=== PATIENT | female | born 1945 | race Caucasian/White ===

== ENCOUNTER 2021-11-14 14:10 | Inpatient (IN) | payer OTHER ==
--- OUTSIDE RECORDS SUMMARY | 2021-11-14 14:13 | XMS REPORT | Continuity of Care Document ---
:1945 Author Organization [facility] t Address [address] [place] [address] Care Team Providers Name Role Phone Joe Egan Attending Clinician Unavailable Sim Attending Clinician Unavailable NAZARIO Attending Clinician Unavailable Jonas Baca Admitting Clinician Unavailable NAZARIO Admitting Clinician Unavailable Payers Payer Name Policy Type Policy Number Effective Date Expiration Date S ource Problems This patient has no known problems. Allergies, Adverse Reactions, Alerts Allergy Allergy Status Severity Reaction(s) Onset Inactive Treating Comm ents Source Name Type Date Date Clinician meperidi DA Active SV 2019-06 [facility] ne HCl 0-02 [place] [facility] iodine DA Active SV 2019-06 [facility] 0-02 [place] [facility] morphine DA Active SV 2019-06 [facility] 0-02 [place] [facility] meperidi DA Active SV VOMIT 2019-06 [facility] ne HCl 0-02 [place] [facility] iodine DA Active SV "CAUSED 2019- [facility] RENAL 0-02 [place] PROBLEMS" 00:00: d [facility] morphine DA Active SV CHEST SPASMS 2019- HC A 0-02 [place] 00:[facility]: d [facility] dipyrida DA Active SV 2018-0 [facility] mole 8- [place] [facility] aspirin DA Active SV 2017- [facility] 8- [place] [facility]: d [facility] dipyrida DA Active SV dry heaving 2017- [facility] mole 01-23 00:00: d [facility] aspirin DA Active SV dry heaving 2017- [facility] 01-23 00:[facility]: d [facility] iodine DA Active LA 2017- [facility] 01-22 00:[facility]: d [facility] iodine DA Active LA "CAUSED [facility] RENAL 01-22 [facility] PROBLEMS" 00:00: d [facility] meperidi DA Active LA [facility] ne HCl 10-21 00:00: d [facility] morphine DA Active LA [facility] 10-21 00:00: d [facility] meperidi DA Active LA VOMIT [facility] ne HCl 10-21 00:00: d [facility] morphine DA Active LA CHEST SPASMS HC A 10-21 00:00: d 00 [facility] Medications This patient has no known medications. Procedures This patient has no known procedures. Encounters Start End Encounter Admission Attending Care Care Encounter Source Date/Time Date/Time Type Type Clinicians Facility Department ID 2021-11-07 Outpatient Egan, STLMLC STLC [id number] Common 12:25:01 [facility] 2021-09-12 Outpatient Egan, STLMLC STLC [id number] Common 13:09:02 [facility] 2021-09-08 Outpatient Egan, STLMLC STLC [id number] Common 14:45:03 [facility] 2021-07-20 Outpatient Egan, STLMLC STLC [id number] Common 14:04:07 [facility] 2021-07-20 Outpatient Egan, STLMLC STLMLC [id number] Common 13:59:25 [facility] 2021-07-20 Outpatient Egan, STLMLC STLC [id number] Common 13:49:55 [facility] 2021-07-20 Outpatient Egan, STLMLC STLC [id number] Common 13:49:24 [facility] [address] [facility] 2020-04-07 Inpatient HCAKW DAVE [id number] [facility] 16:16:00 [id number] [facility] 2020-03-29 Inpatient NIRAV Montemayor HCAKW JENNIFER [id number] [facility] 10:30:00 Edward [id number] [facility] 2021-11-07 2021-11-07 ambulatory STLMLC STLMLC [id number] Common 00:00:00 00:00:00 [facility] 2021-11-07 2021-11-07 ambulatory STLMLC STLMLC [id number] Common 00:00:00 00:00:00 [facility] 2021-10-11 2021-10-11 ambulatory STLMLC STLMLC [id number] Common 00:00:00 00:00:00 [facility] 2021-09-26 2021-09-26 ambulatory STLMLC STLMLC [id number] Common 00:00:00 00:00:00 [facility] 2021-09-26 2021-09-26 ambulatory STLMLC STLMLC [id number] Common 00:00:00 00:00:00 [facility] 2021-09-22 2021-09-22 ambulatory STLMLC STLMLC [id number] Common 00:00:00 00:00:00 [facility] 2021-09-12 2021-09-12 ambulatory STLMLC STLMLC [id number] Common 00:00:00 00:00:00 [facility] 2021-09-12 2021-09-12 ambulatory STLMLC STLMLC [id number] Common 00:00:00 00:00:00 [facility] 2021-06-08 2021-06-08 ambulatory STLMLC STLMLC [id number] Common 00:00:00 00:00:00 [facility] 2021-05-18 2021-05-18 ambulatory STLMLC STLMLC [id number] Common 00:00:00 00:00:00 [facility] 2020-03-26 2020-03-26 Outpatient LIBORIO Montemayor DAYS [id number] [facility] 10:30:00 10:30:00 Jassi [facility] 2019-07-18 2019-07-21 Inpatient [address]ARIO [facility] 460 [id number] [address] [place] 00:00:00 00:00:00 [place] [address] Results Test Description Test Time Test Comments Results Result Comments Source CARDIAC ENZYMES PROFILE 2020-04-08 05:25:00 Test Item Value Reference Range Interpretation Comme nts TROPONIN-I 0.541 0.012-0.033 HH Critical Value reported toFirst Name:[id number] Last Name:RESULTS READ BACK AND (test code ng/mL VERIFIEDby DORIS JARAMILLO, on 04/08/20, @ = TROPI) 0525.Please be advised of the updated reference ranges for the new Chemistry instrumentation . V ITROS TROPONIN I CRITERIANORMAL PATIENT W/O CIRCULATING TNI: 0.012-0.03 3 ng/mLCIRCULATING TNI PRESENT: 0.034-0.119 ng/mL(MAY BE AT RISK OF AMI)AMI DIAGNOSTIC CUTOFF: >/= 0.120 ng/mL~~~~~~~~~~ ~~~~~~~~~~~~~~~~~~~~~~~~~~~~~~~~~~~~~~~~~~~~~~~~~The use of serial sampling and testing protocol is arecommended practice.An elevated troponin level alone is often not sufficient fordiagnosis of myocardial infarction. Tro ponin results obtained by different assays may vary.Evaluation of the extent o f myocardial damage based onincrease of troponin would be valid only if s imilarmethodology is used.~~~~~~~~~~ ~~~~~~~~~~~~~~~~~~~~~~~~~~~~~~~~~~~~~~~~~~~~~~~~~ Spec Comments: Cancel third set if POC Troponin completed in ED CARDIAC ENZYMES [id number] 00:39:00 Test Item Value Reference Range Interpretation Comments TROPONIN-I 0.610 ng/mL 0.012-0.033 Critical Value reported (test code = toFirst Name:QL [id number] Last TROPI) Name:RESULTS RE AD BACK AND VERIFIEDby DORIS JARAMILLO, on 04/08/20, @ 0039. Please be advised of the updated reference ranges for the new Chemistry instrumentation . VITROS T ROPONIN I CRITERIANORM AL PATIENT W/O CIRCULATING TNI: 0.012-0.033 ng/ mLCIRCULATING TNI PRESENT: 0. 034-0.119 ng/mL(MAY BE AT RISK OF AMI)AMI DIAGNOS TIC CUTOFF: >/= 0.120 ng/mL~~~~~~~~~~ ~~~~~~~~~~~~~ ~~~~~~~~~~~~~~~ ~~~~~~~~~~~~~ ~~~~~~~~The use of serial sampling and te sting protocol is are commended practice.An chito vated troponin level alone is often not suffi cient fordiagnosis of myocardial infarction. Tro ponin results obtained by dif ferent assays may vary.Evalua tion of the extent of myoca rdial damage based onincreas e of troponin would be valid only if similarmethodol ogy is used.~~~~~~~~~~ ~~~~~~~~~~~~~ ~~~~~~~~~~~~~~~ ~~~~~~~~~~~~~ ~~~~~~~~ Spec Comments: Cancel third set if POC Troponin completed in ED- MRI BRAIN W WO [id number] 21:34:00 [facility] 1945 Sex: F FAX: Sharri Snow [facility] [phone] [place]: St: ADM Name: ALINA SZYMANSKI [facility] : 1945 Age/S: 74/F [address] Unit #: [id number] Loc: [place] [address] Phys: Preet Varma MD Acct: [id number] Dis Date: Status: ADM IN PHONE #: [phone] Exam Date: FAX #: [phone] Reason: Express aphasia/tia, +trop EXAMS: CPT CODE: [id number] MRI BRAIN W WO CONT 50094 Location: H3 MRI BRAIN: Conducted on04/07/20 COMPARISON EXAM: Head CT exam and CTA assessment of the head and neck of 04/07/20. The exam is also being correlated with MRI imaging of the brain of 10/23/12 TECHNIQUE: MRI examination of the brain with and without contrast was performed on a high field magnet . Multiplanar and multisequence technique utilized. The patient was given a total of 12 mL Dotarem for contrast . CLINICAL HISTORY: Stroke assessment,expressive aphasia, TIA FINDINGS: No positive mass-effect, midline shift, extra-axial collection, or intracranial hemorrhage seen. No acute territorial infarction is seen. There is no intra or extra-axial masses. Assessment of skull base unremarkable. There is a very tiny area of acute restriction seen within the left temporal occipital region seen on diffusion-weighted imaging on image #14 measuring just a few millimeters in size demonstrating high signal on diffusion weighted imaging and low signal on ADC tracing measuri ng just a few millimeters in size of concern for a tiny acute microvascular insults. Itprobably does exhibit some signal alteration on axial T2-weighted imaging and is more likely real than artifactual. No other areas of acute vascular insult. Minimal chronic microvascular changes in the supratentorium. No abnormal enhancement is seen Ventricles and sulci are age-appropriate given patient's age. There is a small lacunar infarct identified in the right cerebellum. This is chronic exhibiting low signal on diffusion-weighted imaging. Normal signal void in the basilar artery and carotid siphons are seen. IMPRESSION: PAGE 1 Signed Report (CONTINUED) FAX: Sharri Snow [facility] [phone] [place]: St: ADM Name: ALINA SZYMANSKI [facility] : 1945 Age/S: 74/F [address] Unit #: [id number] Loc: [place] [address] Phys: Preet Varma MD Acct: [id number] Dis Date: Status: ADM IN PHONE #: [phone] Exam Date: 04/07/20202118 FAX #: [phone] Reason: Express aphasia/tia, +trop EXAMS: CPT CODE: [id number] MRI BRAINW WO CONT 96612 <Continued> Probable very tiny acute microvascular insult seen cortically-based in the left temporal occipital region measuring just a few millimeters in size more likely real than artifactual probable subtlesignal alteration on axial T2- weighted imaging and FLAIR imaging. No acute territorial infarction or significant restriction elsewhere. Tiny old vascular insult in the right cerebellum No abnormal enhancement, intracranial hemorrhage or space-occupying process. Very small degree of chronic microvascular changes at 2133 Reported and si gned by: Darleen Rodriguez MD CC: Sharri Baca DO Technologist: Nica Butler Date/Time/By: 04/07/2020 (2133) : By: [email or web address] PAGE 2 Signed Report FAX: Sharri Snow [phone] [place]: St: ADM Name: ALINA SZYMANSKI [facility] : 1945 Age/S: 74/F [address] Unit #: [id number] Loc: [place] [address] Phys: Preet Varma MD Acct: [id number] Dis Date: Status: ADM IN PHONE #: [phone] Exam Date: 04/07/20202118 FAX #: [phone] Reason: Express aphasia/tia, +trop EXAMS: CPT CODE: [id number] MRI BRAIN W WO CONT 28793 <Continued> Orig Print D/T: S: 04/07/2020 (1147) PAGE 3 Signed ReportLIPID PROFILE (CORONARY RISK)2020-04-07 19:54:00 Test Item Value Reference Range Interpretation Comments TRIGLYCERIDES (test 104 mg/dL TRIGLYCE RIDES code = TRIG) REFERENCE RANGE:Normal: < 150 mg/dLBorderline High: 150-199 mg/dLHigh: 200- 499 mg/dLVery High: >=500 mg/dL CHOLESTEROL (test 200 mg/dL CHOLESTERO L code = CHOL) REFERENCE RANGE:DESIRABLE : < 200 mg/dLBORDER LINE: 200-239 mg/dLHI GH: >=240 mg/dL HDL CHOLESTEROL (test 79 mg/dL 40-59 H code = HDL) LIPOPROTEIN LDL (test 110.55 mg/dL 32-99 H code = LDLC) CORONARY RISK FACTOR 2.53 (test code = RISK) CHOL/HD L RISK MALE: 1/2 AVG 3.43 FEMALE: 1/2 AVG 3.27 AVG 4.97 AVG 4.44 2X AVG 9.55 2X AVG 7 .05 3X A VG 23.39 3X AVG 11.04~~~~~~~~~~ ~~~~~ ~~~~~~~~~~~~~~~ ~~~~~ ~~~~~~~~~~~~~~~ ~~~~~ ~~~~~National Cholesterol Education (NCEP ) Guidelines:~~~~ ~~~~~ ~~~~~~~~~~~~~~~ ~~~~~ ~~~~~~~~~~~~~~~ ~~~~~ ~~~~~~~~~~~ HDL Cholesterol<4 0mg/d L: HDL Choleste rol (Major risk fac tor for CHD)>60mg/d L: HDL Cholesterol (Negative risk factor for CHD)40-59mg/dL: Borderline Risk * *LDL Cholesterol<1 00mg/ dL: Desirable L DL-C [id number] 0-159 mg/dL: Borderli ne High Risk LDL-C [id number] 0-189 mg/dL: High ris k LDL-C concentra tion HDL-LDL Cholest diogo is affected by a number of facto rs suchas smoking, age and sex.~~~~~~~~~~~ ~~~~~ ~~~~~~~~~~~~~~~ ~~~~~ ~~~~~~~~~~~~~~~ ~~~~~ ~~~~ LIPID PROFILE (CORONARY RISK)2020-04-07 19:42:00 Test Item Value Reference Range Interpretation Comments TRIGLYCERIDES (test 104 mg/dL TRIGLYCE RIDES code = TRIG) REFERENCE RANGE:Normal: < 150 mg/dLBorderline High: 150-199 mg/dLHi gh: 200-499 mg/dLVe ry High: >=500 mg/ dL CHOLESTEROL (test code 200 mg/dL DONTE STEROL REFERENCE = CHOL) RANGE:DESIRABLE : < 200 mg/dLBORDERLINE : 200-239 mg/dLHI GH: >=240 mg/dL HDL CHOLESTEROL (test 79 mg/dL 40-59 H code = HDL) LIPOPROTEIN LDL (test mg/dL 32-99 code = LDLC) CORONARY RISK FACTOR 2.53 (test code = RISK) CHOL/HDL RISK MALE: 1/2 AVG 3.43 FEMALE: 1/2 AV G 3.27 AVG 4.97 AVG 4.44 2X AVG 9.55 2X AVG 7.05 3X AVG 23.39 3X AVG 11.04~~~~~~~~~~ ~~~~~~~ ~~~~~~~~~~~~~~~ ~~~~~~~ ~~~~~~~~~~~~~~~ ~~~~~~[facility] Cholest diogo Education (NCEP ) Guidelines:~~~~ ~~~~~~~ ~~~~~~~~~~~~~~~ ~~~~~~~ ~~~~~~~~~~~~~~~ ~~~~~~~ ~~~~~ HDL Cholesterol<4 0mg/dL: HDL Cholesterol (Major risk factor for CHD)>60mg/dL: H DL Cholesterol (Ne gative risk factor for CHD)40-59mg/dL: Borderline Risk L DL Cholesterol<1 00mg/dL : Desirable LDL -C [id number] 0-159mg /dL: Borderline High Risk LDL-C nlkntggjxrrow01 0-189mg /dL: High risk LDL-C concentration H DL-LDL Cholesterol is affected by a n umber of factors such as smoking, age an d sex.~~~~~~~~~~~ ~~~~~~~ ~~~~~~~~~~~~~~~ ~~~~~~~ ~~~~~~~~~~~~~~~ ~~~~~ - XR CHEST 1 [id number] 18:26:00 [facility] : 1945 Sex: F FAX: Sharri Snow [facility] [phone] [place]: St: PRE Name: ALINA SZYMANSKI [facility] : 1945 Age/S: 74/F [address] Unit #: [id number] Loc: [place] [address] Phys: Preet Varma MD Acct: [id number] Dis Date: Status: PRE ER PHONE #: [phone] Exam Date: FAX #: [phone] Reason: Code Stroke EXAMS: CPT CODE: [id number] XR CHEST 1 V 32142 EXAM: - XR CHEST 1 V INDICATION: Code Stroke Location: H62. COMPARISON: None TECHNIQUE: Frontal view of the chest. FINDINGS: Few scattered areas of minimal scarring/atelectasis involving the right lung. Otherwise the lungs appear clear. Cardiomediastinal silhouette and osseous structures appear unremarkable. No pleural effusion appreciated. IMPRESSION: No acute cardiopulmonary process seen. Electronically Signedby Ricardo Silva MD on 04/07/2020 at 1826 Reported and signed by: Ricardo Silva MD CC: Sharri Baca DO Technologist: ANDREE RUBIO Trnscrd Date/Time/By: 04/07/2020 (1825) : By: [email or web address] Signed Report FAX: Sharri Snow [phone] [place]: St: PRE Name: ALINA SZYMANSKI [facility] : 1945 Age/S: 74/F [address] Unit #: [id number] Loc: [place] [address] Phys: Preet Varma MD Acct: [id number] Dis Date: Status: PRE ER PHONE #: [phone] Exam Date: 04/07/2020 1630 FAX #: [phone] Reason: Code Stroke EXAMS: CPT CODE: [id number] XR CHEST 1 V 16973 <Continued> Orig Print D/T: S: 04/07/2020 (183) PAGE 2 Signed Report- CT ANGIO NECK 2020-04-07 18:10:00 [facility] : 1945 Sex: F FAX: Sharri Snow [facility] [phone] [place]: St: PRE Name: ALINA SZYMANSKI [facility] : 1945 Age/S: 74/F [address] Unit: [id number] Loc: [place] [address] Phys: Preet Varma MD Acct: [id number] Dis Date: Status: PRE ER PHONE #: [phone] Exam Date: 04/07/2020 1540 FAX #: [phone] Reason: aphasia? EXAMS: CPT CODE: [id number] CT ANGIO NECK [address]257 EXAM: - CT ANGIO HEAD, - CT ANGIO NECK LOCATION: H50 HISTORY: aphasia? TECHNIQUE: CTA head: Axial CTimages were obtained from the skull base to the vertex after intravenous contrast utilizing CTA protocol. Coronal and sagittal maximum intensity projection images are provided. CTA neck: Axial CT images were obtained from the aortic arch to the skull base after intravenous contrast utilizing CTA protocol. Coronal and sagittal maximum intensity projection images are provided. This exam was performed according to our departmental dose-optimization program, which includes automated exposure control, adjustment of the mA and/or kV according to patient size and/or use of iterative reconstruction technique. Contrast: 100 mL Isovue-370 GFR: 43 Cr: 1.3 COMPARISON: None available time of interpretation. FINDINGS: For the purposes of this dictation, hemodynamically significan t stenosis is characterized as greater than 50%. CTA head: The petrous, cavernous, and clinoid internal carotid arteries do not demonstrate hemodynamically significant stenoses. The anterior and middle cerebral arteries do not demonstrate hemodynamically significant stenoses. [place] of both vertebral arteries into the basilar. Basilar artery and posterior cerebral arteries are do not demonstrate hemodynamically significant stenoses. The dural venous sinuses are patent. PAGE 1 Signed Report (CONTINUED) FAX: Sahrri Snow [facility] [phone] [place]: St: PRE ------- Name: ALINA SZYMANSKI [facility] : 1945 Age/S: 74/F [address] Unit: [id number] Loc: [place] [address] Phys: Preet Varma MD Acct: [id number] Dis Date: Status: PRE ER PHONE#: [phone] Exam Date: 04/07/2020 1540 FAX #: [phone] Reason: aphasia? EXAMS: CPT CODE: [id number] CT ANGIO NECK 72591 <Continued> CTA neck: The origins of the great vessels from the aortic arch do not demonstrate hemodynamically significant stenoses. The bilateral common carotid arteries and bulbs are without hemodynamically significant stenosis. The internal carotid arteries do not demonstrate hemodynamically significant stenosis. The left vertebral artery is dominant. There is no hemodynamically significant stenosis of the vertebral arteries. Patchy central groundglass opacities are seen in the lung apices which may reflect multifocal pneumonia or pulmonary edema. Soft tissues of the neck are unremarkable. IMPRESSION: 1. No hemodynamically significant stenoses of the cervical internal carotid or vertebral arteries. 2. No hemodynamically significant stenoses of the anterior, middle, or posterior cerebral arteries. 3. No aneurysm, occlusion, or dissection. 4. Central groundglass opacities in the lung apices which may reflect multifocal pneumonia versus pulmonary edema. at 1810 Reported and signed by: STACY SHAFER MD CC: Sharri Baca DO Technologist: BALA YOUNGBLOOD, RT(R,CT); NEDA OCONNOR Trnscrd Dt/Tm: 04/07/2020 (1809) [email or web address] Orig Print D/T: S: 04/07/2020 (1814 PAGE 2 Signed Report- CT ANGIO [id number] 18:10:00 [facility] OMERMARTHA[facility]INA [facility]RA [facility] : 1945 Sex: F FAX: Sharri Snow [facility] [phone] [place]: St: PRE Name: ALINA SZYMANSKI [facility] : 1945 Age/S: 74/F [address] Unit: [id number] Loc: [place] [address] Phys: Preet Varma MD Acct: [id number] Dis Date: Status: PRE ER PHONE #: [phone] Exam Date: 04/07/2020 1540 FAX #: [phone] Reason: aphasia? EXAMS: CPT CODE: [id number] CT ANGIO HEAD [address]13 EXAM: - CT ANGIO HEAD, - CT ANGIO NECK LOCATION: H50 HISTORY: aphasia? TECHNIQUE: CTA head: Axial CTimages were obtained from the skull base to the vertex after intravenous contrast utilizing CTA protocol. Coronal and sagittal maximum intensity projection images are provided. CTA neck: Axial CT images were obtained from the aortic arch to the skull base after intravenous contrast utilizing CTA protocol. Coronal and sagittal maximum intensity projection images are provided. This exam was performed according to our departmental dose-optimization program, which includes automated exposure control, adjustment of the mA and/or kV according to patient size and/or use of iterative reconstruction technique. Contrast: 100 mL Isovue-370 GFR: 43 Cr: 1.3 COMPARISON: None available time of interpretation. FINDINGS: For the purposes of this dictation, hemodynamically significan t stenosis is characterized as greater than 50%. CTA head: The petrous, cavernous, and clinoid internal carotid arteries do not demonstrate hemodynamically significant stenoses. The anterior and middle cerebral arteries do not demonstrate hemodynamically significant stenoses. [place] of both vertebral arteries into the basilar. Basilar artery and posterior cerebral arteries are do not demonstrate hemodynamically significant stenoses. The dural venous sinuses are patent. PAGE 1 Signed Report (CONTINUED) FAX: Sharri Snow [facility] [phone] [place]: St: PRE ------- Name: ALINA SZYMANSKI [facility] : 1945 Age/S: 74/F [address] Unit: [id number] Loc: [place] [address] Phys: Preet Varma MD Acct: [id number] Dis Date: Status: PRE ER PHONE#: [phone] Exam Date: 04/07/2020 1540 FAX #: [phone] Reason: aphasia? EXAMS: CPT CODE: [id number] CT ANGIO HEAD [address]3855 <Continued> CTA neck: The origins of the great vessels from the aortic arch do not demonstrate hemodynamically significant stenoses. The bilateral common carotid arteries and bulbs are without hemodynamically significant stenosis. The internal carotid arteries do not demonstrate hemodynamically significant stenosis. The left vertebral artery is dominant. There is no hemodynamically significant stenosis of the vertebral arteries. Patchy central groundglass opacities are seen in the lung apices which may reflect multifocal pneumonia or pulmonary edema. Soft tissues of the neck are unremarkable. IMPRESSION: 1. No hemodynamically significant stenoses of the cervical internal carotid or vertebral arteries. 2. No hemodynamically significant stenoses of the anterior, middle, or posterior cerebral arteries. 3. No aneurysm, occlusion, or dissection. 4. Central groundglass opacities in the lung apices which may reflect multifocal pneumonia versus pulmonary edema. at 1810 Reported and signed by: STACY SHAFER MD CC: Sharri Baca DO Technologist: BALA YOUNGBLOOD, RT(R,CT); NEDA OCONNOR Trnscrd Dt/Tm: 04/07/2020 (1809) [email or web address] Orig Print D/T: S: 04/07/2020 (1814 PAGE 2 Signed ReportBASIC METABOLIC [id number] 17:08:00 Test Item Value Reference Range Interpretation Comments SODIUM (test code = 136 mmol/L 137-145 L NA) POTASSIUM (test code 4.5 mmol/L 3.4-5.0 N = K) CHLORIDE (test code = 102 mmol/L 98-107 N CL) CARBON DIOXIDE (test 28 mmol/L 22-30 N code = CO2) GLUCOSE (test code = 104 mg/dL 74-106 N GLU) BLOOD UREA NITROGEN 27 mg/dL 7-17 H (test code = BUN) GLOMERULAR FILTRATION 43 >60 L The es timated RATE (test code = glomerular filtration GFR) rate is compute d usingpatient ra ce, age (>18), sex, and serum creatinine. If anyof the needed data elements are mi ssing the Laboratory cannot compute an henry mation of the glomerul ar filtration rate . CREATININE (test code 1.3 mg/dL 0.5-1.0 H = CREAT) CALCIUM (test code = 8.9 mg/dL 8.4-10.2 N CA) PROTHROMBIN [id number] 17:00:00 Test Item Value Reference Range Interpretation Comments PROTHROMBIN TIME 10.7 SECONDS 9.2-12.1 N PATIENT (test code = PTP) INTERNATIONAL NORMAL 1.0 REPORT ED TO [id number] RATIO (test code = (PATIENT NURSE) FOR INR) CODE NEURO.The INR is to be used only for monitoring ORAL ANTICOAGULANTTH ERAPY. Indicati on INR Value1. Prophylaxis/chioma atment of: Venous Thrombosis, Pul monary Embolism 2.0 - 3.02. Preventi on of systemic emboli sm from: Tiss ue heart valves 2.0 - 3.0 Acute myocardial infa rction (to present systemic emboli sm)* 2.0 - 3.0 Valvular heart disease 2.0 - 3.0 Atrial fibrillation 2.0 - 3.03. [place] Rough Opener al prosthetic valv es (high risk) 2.5 - 3.5 * If oral anticoagulant t herapy is elected to preventrecurren t myocardial infa rction, an INR of 2.5-3 .5 isrecommended, consistent with Food and Drug Administrationr ecommen dations. IS PATIENT ON ANTICOAGULANTS ? nTHROMBOPLASTIN TIME [id number] 17:00:00 Test Item Value Reference Range Interpretation Comments THROMBOPLASTIN TIME 30.2 SECONDS 23.4-37.0 N Therap eutic Range PARTIAL (test code = for Hep nathan PTT) EFFECTIVE Heparin IU/mL aPT T Seconds0.3 64.30.7 88.8 IS PATIENT ON ANTICOAGULANTS ? nTROPONIN I [id number] 16:55:00 Test Item Value Reference Range Interpretation Comments TROPONIN I RAPID 0.96 ng/mL 0.00-0.079 NOTIFIED (test code = ISTAT TROPONIN I TROPIRAP) CRITERIA0.00-0. 08 ng/mL - Negative>0.08 n g/mL - Positive The us e of serial sampling and te sting protocol is are commended practice.An chito vated troponin level alone is often not suffi cient fordiagnosis of myocardial infarction. Tro ponin results obtaine d by different assay s may vary.Evaluation of the extent of myoca rdial damage based on increase of troponin would be valid only if similar methodology is used. CBC W/AUTO [id number] 16:53:00 Test Item Value Reference Range Interpretation Comments WHITE BLOOD CELL (test code = 6.0 x10 3/uL 5.0-12.0 N WBC) RED BLOOD CELL (test code = 4.19 x10 6/uL 4.20-5.40 L RBC) HEMOGLOBIN (test code = HGB) 11.3 g/dL 12.0-16.0 L HEMATOCRIT (test code = HCT) 36.3 % 36.0-46.0 N MEAN CELL VOLUME (test code = 87 fL 81-99 N MCV) MEAN CELL HGB (test code = MCH) 27.0 pg 27-31 N MEAN CELL HGB CONCENTRATION 31.1 g/dL 33-37 L (test code = MCHC) RED CELL DISTRIBUTION WIDTH 14.4 % 11.5-15.5 N (test code = RDW) PLATELET COUNT (test code = 288 x10 3/uL 130-400 N PLT) MEAN PLATELET VOLUME (test code 9.1 fL 9.4-16.4 L = MPV) NEUTROPHIL % (test code = NT%) 61.8 % 43-65 N IMMATURE GRANULOCYTE % (test 0.2 % 0.0-2.0 N code = IG%) LYMPHOCYTE % (test code = LY%) 26.6 % 20.5-45.5 N MONOCYTE % (test code = MO%) 7.7 % 5.5-11.7 N EOSINOPHIL % (test code = EO%) 3.2 % 0.9-2.9 H BASOPHIL % (test code = BA%) 0.5 % 0.2-1.0 N NUCLEATED RBC % (test code = 0.0 % 0-1.0 N NRBC%) NEUTROPHIL # (test code = NT#) 3.69 x10 3/uL 2.2-4.8 N IMMATURE GRANULOCYTE # (test 0.01 x10 3/uL 0-0.03 N code = IG#) LYMPHOCYTE # (test code = LY#) 1.59 x10 3/uL 1.3-2.9 N MONOCYTE # (test code = MO#) 0.46 x10 3/uL 0.3-0.8 N EOSINOPHIL # (test code = EO#) 0.19 x10 3/uL 0.0-0.2 N BASOPHIL # (test code = BA#) 0.03 x10 3/uL 0.0-0.1 N PROTHROMBIN [id number] 16:47:00 Test Item Value Reference Range Interpretation Comments PROTHROMBIN TIME 10.7 SECONDS 9.2-12.1 N PATIENT (test code = PTP) INTERNATIONAL NORMAL 1.0 The INR is to be used RATIO (test code = only for monitoring INR) ORAL ANTICOAGULANTTH ERAPY. Indicati on INR Value1. Prophylaxis/chioma atment of: Venous Thrombosis, Pul monary Embolism 2.0 - 3.02. Preventi on of systemic emboli sm from: Tiss ue heart valves 2.0 - 3.0 Acute myocardial infa rction (to present systemic emboli sm)* 2.0 - 3.0 Valvular heart disease 2.0 - 3.0 Atrial fibrillation 2.0 - 3.03. Jewel Hole Rough Opener al prosthetic valv es (high risk) 2.5 - 3.5 * If oral anticoagulant t herapy is elected to preventrecurren t myocardial infa rction, an INR of 2.5-3 .5 isrecommended, consistent with Food and Drug Administrationr ecommen dations. IS PATIENT ON ANTICOAGULANTS ? nTHROMBOPLASTIN TIME [id number] 16:47:00 Test Item Value Reference Range Interpretation Comments THROMBOPLASTIN TIME 30.2 SECONDS 23.4-37.0 N Therap eutic Range PARTIAL (test code = for Hep nathan PTT) EFFECTIVE Heparin IU/mL aPT T Seconds0.3 64.30.7 88.8 IS PATIENT ON ANTICOAGULANTS ? n- CT HEAD/BRAIN W/O [id number] 16:34:00 [facility] TYName: ALINA SZYMANSKI GILLIAN : 1945 Sex: F FAX: Sharri Snow [facility] [phone] [place]: St: PRE Name: ALINA SZYMANSKI [facility] : 1945 Age/S: 74/F [address] Unit: [id number] Loc: [place] [address] Phys: Preet Varma MD Acct: [id number] Dis Date: Status: PRE ER PHONE #: [phone] Exam Date: 04/07/2020 1625 FAX #: [phone] Reason: difficulty speaking EXAMS: CPT CODE: [id number] CT HEAD/BRAIN W/OCONT 69366 CLINICAL HISTORY: Difficulty speaking, code neuro. CT brain, unenhanced. Reformatted sagittal and coronal images. COMPARISON: October 23, 2012 MRI study.. Automated exposure control, iterative reconstruction technique, and/or adjustment of mA and/or kV according to patient's size was utilized for optimum radiation dose reduction. An unenhanced study of the brain was performed. Symmetric cortical pattern found with diffuse cortical atrophy and hypodensity in white mattersuggesting chronic microvascular ischemia changes, mild. Possible tiny microinfarct in the peripheral right basal ganglia. No cortical or subdural hemorrhage, mass effect, or findings of CVA can be seen. No evidence of ventricular shift. The posterior fossa stru ctures appear to be intact. Bone window settings do not show any evidence of skull fracture. Visualized sinuses appear to be clear. . IMPRESSION: No acute appearing intracranial abnormality. No evidence of hemorrhage or CVA. Senescentchanges. Findings discussed with Dr. Varma at 1633 hours on April 07, 2020 Location: [facility] FOR INTERNAL CODING PURPOSES ONLY RESULT CODE: CVR at 1634 Reported and signed by: Stu Sheikh M.D. PAGE 1 Signed Report (CONTINUED) FAX: Nissa KevenSharri Quinteros [phone] [place]: St: PRE----- Name: ALINA SZYMANSKI GILLIAN [facility] : 1945 Age/S: 74/F [address] Unit: [id number] Loc: [place] [address] Phys: Preet Varma MD Acct: [id number] Dis Date: Status: PRE ER PHONE #: [phone] Exam Date: 04/07/2020 1625 FAX #: [phone] Reason: difficulty speaking EXAMS: CPT CODE: [id number] CT HEAD/BRAIN W/O CONT 04981 <Continued> CC: Sharri Baca DO Technologist: BALA YOUNGBLOOD, RT(R,CT) Trnscrd Dt/Tm: 04/07/2020 (8984) [email or web address] Orig Print D/T: S: 04/07/2020 (2027 PAGE 2 Signed ReportFLUID,[id number] 13:15:00 RUN DATE: 03/31/20 [facility] PAGE 1 RUN TIME: 1315 Specimen Inquiry RUN USER: INTERFACE PATIENT: ALINA SZYMANSKI LOC: MICHELLE #: [id number] AGE/SX: 74/F ROOM: RE03/29/20REG DR: Jassi Montemayor MD : 47 BED: DIS: STATUS[place] [facility] [place]: SPEC #: [id number] RECD: 03/30/20 STATUS: JOSELIN JUWAN #: [id number] LOLY: 03/29/20-0 [facility] DR: Jassi Montemayor MD ENTERED: 03/30/20 SP TYPE: FL OTHER [facility] DR: DOES_NOT KNOW Sharri Baca DOORDERED: PATHGM4, # OF BLOCKS, CYFWBCONC/2, # OF SLIDES/6 TISSUES: A. BREAST, NOS - RIGHT BREAST FLUID B. BREAST, NOS - LEFT BREAST FLUID CLINICAL HISTORY HISTORY OF RIGHT BREAST CANCER, S/P BILATERAL MASTECTOMY AND IMPLANT BASED RECONSTRUCTION, NOW WITH CAPSULAR CONTRACTURE AND PAIN. FOR IMPLANT REMOVAL AND CAPSULECTOMY ([id number]) FINAL MICROSCOPIC DIAGNOSIS A. RIGHT BREAST, ASPIRATION, CYTOSPINS: PAUCICELLULAR SPECIMEN NO MALIGNANT CELLS SEEN B. LEFT BREAST, ASPIRATION, CYTOSPINS AND CELL BLOCK: PAUCICELLULAR SPECIMEN NO MALIGNANT CELLS SEEN CPT: 70159 X 2,05084 GROSS DESCRIPTION Equipment, specimen container and paperwork all match. A) The specimen is received without fixative labeled with the patient's name (STEPHON) and medical record number and designated "Right breast fluid". It consists of approximately 2 mL of thick, cloudy yellow fluid . The specimen is submitted for cytologic preparation. CYTOSPINS: 2 CELL BLOCK: 0 B) The specimen is received without fixative labeled with the patient's name (STEPHON) and medical record number and designated "Left breast fluid". It consists of approximately 3 mL of thick, blood-tinged fluid. The specimen is submitted for cytologic preparation. CONTINUED ON NEXT PAGE RUN DATE: 03/31/20 [facility] PAGE 2 RUN TIME: 1315 Specimen Inquiry RUN USER: INTERFACE SPEC #: [id number] PATIENT: ALINA SZYMANSKI GILLIAN #[id number] (Continued) GROSS DESCRIPTION (Continued) CYTOSPINS: 2 CELL BLOCK: 1 dequan/ALAINA Signed SIGNATURE ON FILE Nya Nicole 03/31/20 1315 END OF REPORTBREAST,EXCISION OF LESION/[id number] 13:29:00 RUN DATE: 03/30/20 [facility] PAGE 1 RUN TIME: 1330 Specimen Inquiry RUN USER: INTERFACE PATIENT: ALINA SZYMANSKI GILLIAN LOC: MICHELLE U #: [id number] AGE/SX: 74/F ROOM: RE03/29/20REG DR: Jassi Montemayor MD : 47 BED: DIS: STATUS: [facility] [place]LOC: SPEC #: [id number] RECD: 03/29/20 STATUS: JOSELIN ECHEVERRIA #: [id number] LOLY: 03/29/[address]: Jassi Montemayor MD ENTERED: 03/29/20 SP TYPE: BREAST,EXC OTHR DR: DOES_NOT KNOW Sharri Baca DOORDERED: GROSS/2, PATHGM4/2, # OF BLOCKS/2, # OF SLIDES/2 TISSUES: A. BREAST, NOS - RIGHT BREAST CAPSULE B. BREAST, NOS - LEFT BREAST CAPSULE C. BREAST IMPLANTS - RIGHT BREAST D. BREAST IMPLANTS - LEFT BREAST CLINICAL HISTORY HISTORY OF RIGHT BREAST CANCER (2003), S/P BILATERAL MASTECTOMY AND IMPLANT BASED RECONSTRUCTION, NOW WITH CAPSULAR CONTRACTURE AND PAIN COMMENT Please see [id number] for results of cytologic evaluation of the fluid. FINAL MICROSCOPIC DIAGNOSIS A. RIGHT BREASTIMPLANT CAPSULE, CAPSULECTOMY: FIBROSIS NO MALIGNANCY SEEN B. LEFT BREAST IMPLANT CAPSULE, CAPSULECTOMY: FIBROSIS NO MALIGNANCY SEEN C. RIGHT BREAST IMPLANT, SURGICAL EXPLANTATION: INTACT IMPLANT, 518 GRAMS (GROSS ONLY) D. LEFT BREAST IMPLANT, SURGICAL EXPLANTATION: INTACT IMPLANT, 514 GRAMS (GROSS ONLY) CPT: 93942 X 2, 64871 X2 GROSS DESCRIPTION The specimen is received fresh in four containers all labeled with thepatient's name and medical record number. Specimen A: Labeled "right breast capsule" is a 6.5 x 3.5 x 0.6 cm pink-arceo to CONTINUED ON NEXT PAGE RUN DATE: 03/30/20 [facility] PAGE 2 RUN TIME: 1330 Specimen Inquiry RUN USER: INTERFACE SPEC #: [id number] PATIENT: ALINA SZYMANSKI GILLIAN #[id number] (Con tinued) GROSS DESCRIPTION (Continued) chowdhury-white, rubbery portion of fibromembranous soft tissue. Sectioning reveals no discrete mass lesion. Fire Alarm Operator [facility]. Specimen B: Labeled "left breast capsule" are two pink-arceo to chowdhury-white, rubbery portions of fibromembranous soft tissue measuring 10.0 x 7.0 x 0.6 cm in aggregate. Sectioningreveals no discrete mass lesion. Fire Alarm Operator sections are submitted in cassette B1. Specimen C: Labeled "right breast implant" is a 13.0 x 13.0 x 2.5 cm, 518 gram, intact silicone implant. The specimen is for gross identification only. Specimen D: Labeled "left breast implant" is a 13.0 x 13.0 x 2.5 cm, 514 gram, intact silicone implant. The specimen is for gross identification only. ALAINA/DB/tb Signed SIGNATURE ON FILE Nya Nicole 03/30/20 1329 END OF REPORT Novel Coronavirus 2019 [id number] 16:08:00 Test Item Value Reference Interpretation Comments Range Novel Not Detected Not Detected Testing was per formed using Coronavirus 2019 the Aptima SARS-CoV-2 Inhouse (test assay.This nuc leic acid code = amplification t est was COVNONPUI) developed and i tsperformance characteristics determined by [facility]. Nucleic acid amplificat ion tests include PCRand TMA. This test has not been FD A cleared or approved.This t est has been authorized by [employer] under an Emergency UseAu thorization (EUA). This etelvina t is only authorized fort he duration of time the declar ation that circumstancesex ist justifying the authorizati on of the emergency use o fin vitro diagnostic test s for detection of SA RS-CoV-2 virusand/or vito gnosis of COVID-19 infect ion under nqoxply675(b)(1 ) of the Act, 21 U.S.C. 360bb b-3(b) (1), unless theautho rization is terminated or r evoked sooner.When vito gnostic testing is nega tive, the possibility of afalse negative result should be considered in t he contextof a patient's recen t exposures and the presenc e ofclinical signs and sympt oms consistent with COVID-19. Anindividual without symptom s of COVID-19 and who is nots hedding SARS-CoV-2 viru s would expect to have a negat emily(not detected) resul t in this assay.Testing w as performed using the Aptim a SARS-CoV-2 assay.This test was developed and its perform ance characteristics determined by [facility]. This test has not be enFDA cleared or approved. Th is test has been authorized byFDA under an Emergency Us e Authorization ( EUA). This test isonly aut horized for the duration of time the declarationthat cirumstances exist justifyin g the authorization o f theemergency use of in vitro diganostic tests for detec tion [id number]-1 vi miguel and/or diagnosis of CO VID-19 infectionunder section 564 (b)(1) of the A ct, 21 U.S.A473inq-9(b )(1), unless the authorizati on is terminated orre voked sooner.When vito gnostic testing is nega tive, the possibility off alse negative resutls should be considered in the contexto f a patient's recent exposure s and the presence of cli nicalsign and symptoms consis tent with COVID-19. An individualwitho ut symptoms of COVID-19 and wh o is not sheddingSARS-Co V-2 virus would expect to have a negative (not d etected) result in this assay. Novel Coronavirus 2019 [id number] 16:08:00 Test Item Value Reference Interpretation Comments Range Novel Not Detected Not Detected Testing was per formed using Coronavirus 2019 the Aptima SARS-CoV-2 Inhouse (test assay.This nuc leic acid code = amplification t est was COVNONPUI) developed and i tsperformance characteristics determined by [facility]. Nucleic acid amplificat ion tests include PCRand TMA. This test has not been FD A cleared or approved.This t est has been authorized by [employer] under an Emergency UseAu thorization (EUA). This etelvina t is only authorized fort he duration of time the declar ation that circumstancesex ist justifying the authorizati on of the emergency use o fin vitro diagnostic test s for detection of SA RS-CoV-2 virusand/or vito gnosis of COVID-19 infect ion under uccvumi134(b)(1 ) of the Act, 21 U.S.C. 360bb b-3(b) (1), unless theautho rization is terminated or r evoked sooner.When vito gnostic testing is nega tive, the possibility of afalse negative result should be considered in t he contextof a patient's recen t exposures and the presenc e ofclinical signs and sympt oms consistent with COVID-19. Anindividual without symptom s of COVID-19 and who is nots hedding SARS-CoV-2 viru s would expect to have a negat emily(not detected) resul t in this assay.Testing w as performed using the Aptim a SARS-CoV-2 assay.This test was developed and its perform ance characteristics determined by [facility]. This test has not be enFDA cleared or approved. Th is test has been authorized byA under an Emergency Us e Authorization ( EUA). This test isonly aut horized for the duration of time the declarationthat cirumstances exist justifyin g the authorization o f theemergency use of in vitro diganostic tests for detec tion [id number]-EkS-0 vi miguel and/or diagnosis of CO VID-19 infectionunder section 564 (b)(1) of the A ct, 21 U.S.T410ogi-0(b )(1), unless the authorizati on is terminated orre voked sooner.When vito gnostic testing is nega tive, the possibility off alse negative resutls should be considered in the contexto f a patient's recent exposure s and the presence of cli nicalsign and symptoms consis tent with COVID-19. An individualwitho ut symptoms of COVID-19 and wh o is not sheddingSARS-Co V-2 virus would expect to have a negative (not d etected) result in this assay. [facility] [id number] 16:08:00 Test Item Value Reference Range Interpretation Comments [facility] In[facility] () ReceivedPe rformed At: (test code = LCAIP) [address] [id number] Kyle L MD Ph:[phone] eviously reported result : Edited by: TONI on 20:1608~~ Corrected Repor t ~~Reason (required):[] CBC W/AUTO [id number] 11:49:00 Test Item Value Reference Range Interpretation Comments WHITE BLOOD CELL (test 6.6 x10 3/uL 5.0-12.0 N code = WBC) RED BLOOD CELL (test 4.67 x10 6/uL 4.20-5.40 N code = RBC) HEMOGLOBIN (test code 12.7 g/dL 12.0-16.0 N = HGB) HEMATOCRIT (test code 41.3 % 36.0-46.0 N DELAYE D IN RESULTS = HCT) REPORTING DUE T O SPECIMEN PRE-WARMED FOR1 5 MINUTES DUE TO H & H CHECK FAILED. SPECIMEN INTEGRITYACCEPT ABL E. SLIDE TO BE REVIEWED. MEAN CELL VOLUME (test 88 fL 81-99 N code = MCV) MEAN CELL HGB (test 27.2 pg 27-31 N code = MCH) MEAN CELL HGB 30.8 g/dL 33-37 L CONCENTRATION (test code = MCHC) RED CELL DISTRIBUTION 13.5 % 11.5-15.5 N WIDTH (test code = RDW) PLATELET COUNT (test 279 x10 3/uL 130-400 N code = PLT) MEAN PLATELET VOLUME 9.5 fL 9.4-16.4 N (test code = MPV) NEUTROPHIL % (test 52.9 % 43-65 N code = NT%) IMMATURE GRANULOCYTE % 0.2 % 0.0-2.0 N (test code = IG%) LYMPHOCYTE % (test 35.1 % 20.5-45.5 N code = LY%) MONOCYTE % (test code 8.2 % 5.5-11.7 N = MO%) EOSINOPHIL % (test 3.0 % 0.9-2.9 H code = EO%) BASOPHIL % (test code 0.6 % 0.2-1.0 N = BA%) NUCLEATED RBC % (test 0.0 % 0-1.0 N code = NRBC%) NEUTROPHIL # (test 3.49 x10 3/uL 2.2-4.8 N code = NT#) IMMATURE GRANULOCYTE # 0.01 x10 3/uL 0-0.03 N (test code = IG#) LYMPHOCYTE # (test 2.31 x10 3/uL 1.3-2.9 N code = LY#) MONOCYTE # (test code 0.54 x10 3/uL 0.3-0.8 N = MO#) EOSINOPHIL # (test 0.20 x10 3/uL 0.0-0.2 N code = EO#) BASOPHIL # (test code 0.04 x10 3/uL 0.0-0.1 N = BA#) PLATELET ESTIMATE ADEQUATE ADEQUATE (test code = PLTEST) PLATELET MORPHOLOGY NORMAL NORMAL (test code = PLTMORPH) DIFFERENTIAL [id number] 11:49:00 Test Item Value Reference Range Interpretation Comments POIKILOCYTOSIS (test code = POIK) 2+ NONE SEEN A ANISOCYTOSIS (test code = ANISO) 1+ NONE SEEN A MICROCYTOSIS (test code = MICR) 1+ NONE SEEN A ACANTHOCYTES (test code = ACAN) 1+ NONE SEEN A OVALOCYTES (test code = OVAL) 1+ NONE SEEN A CBC W/AUTO [id number] 11:26:00 Test Item Value Reference Range Interpretation Comments WHITE BLOOD CELL (test 6.6 x10 3/uL 5.0-12.0 N code = WBC) RED BLOOD CELL (test 4.67 x10 6/uL 4.20-5.40 N code = RBC) HEMOGLOBIN (test code 12.7 g/dL 12.0-16.0 N = HGB) HEMATOCRIT (test code 41.3 % 36.0-46.0 N DELAYE D IN RESULTS = HCT) REPORTING DUE T O SPECIMEN PRE-WARMED FOR1 5 MINUTES DUE TO H & H CHECK FAILED. SPECIMEN INTEGRITYACCEPT ABL E. SLIDE TO BE REVIEWED. MEAN CELL VOLUME (test 88 fL 81-99 N code = MCV) MEAN CELL HGB (test 27.2 pg 27-31 N code = MCH) MEAN CELL HGB 30.8 g/dL 33-37 L CONCENTRATION (test code = MCHC) RED CELL DISTRIBUTION 13.5 % 11.5-15.5 N WIDTH (test code = RDW) PLATELET COUNT (test 279 x10 3/uL 130-400 N code = PLT) MEAN PLATELET VOLUME 9.5 fL 9.4-16.4 N (test code = MPV) NEUTROPHIL % (test 52.9 % 43-65 N code = NT%) IMMATURE GRANULOCYTE % 0.2 % 0.0-2.0 N (test code = IG%) LYMPHOCYTE % (test 35.1 % 20.5-45.5 N code = LY%) MONOCYTE % (test code 8.2 % 5.5-11.7 N = MO%) EOSINOPHIL % (test 3.0 % 0.9-2.9 H code = EO%) BASOPHIL % (test code 0.6 % 0.2-1.0 N = BA%) NUCLEATED RBC % (test 0.0 % 0-1.0 N code = NRBC%) NEUTROPHIL # (test 3.49 x10 3/uL 2.2-4.8 N code = NT#) IMMATURE GRANULOCYTE # 0.01 x10 3/uL 0-0.03 N (test code = IG#) LYMPHOCYTE # (test 2.31 x10 3/uL 1.3-2.9 N code = LY#) MONOCYTE # (test code 0.54 x10 3/uL 0.3-0.8 N = MO#) EOSINOPHIL # (test 0.20 x10 3/uL 0.0-0.2 N code = EO#) BASOPHIL # (test code 0.04 x10 3/uL 0.0-0.1 N = BA#) CBC W/AUTO [id number] 11:26:00 Test Item Value Reference Range Interpretation Comments WHITE BLOOD CELL (test 6.6 x10 3/uL 5.0-12.0 N code = WBC) RED BLOOD CELL (test 4.67 x10 6/uL 4.20-5.40 N code = RBC) HEMOGLOBIN (test code 12.7 g/dL 12.0-16.0 N = HGB) HEMATOCRIT (test code 41.3 % 36.0-46.0 N DELAYE D IN RESULTS = HCT) REPORTING DUE T O SPECIMEN PRE-WARMED FOR1 5 MINUTES DUE TO H & H CHECK FAILED. SPECIMEN INTEGRITYACCEPT ABL E. SLIDE TO BE REVIEWED. MEAN CELL VOLUME (test 88 fL 81-99 N code = MCV) MEAN CELL HGB (test 27.2 pg 27-31 N code = MCH) MEAN CELL HGB 30.8 g/dL 33-37 L CONCENTRATION (test code = MCHC) RED CELL DISTRIBUTION 13.5 % 11.5-15.5 N WIDTH (test code = RDW) PLATELET COUNT (test 279 x10 3/uL 130-400 N code = PLT) MEAN PLATELET VOLUME 9.5 fL 9.4-16.4 N (test code = MPV) NEUTROPHIL % (test 52.9 % 43-65 N code = NT%) IMMATURE GRANULOCYTE % 0.2 % 0.0-2.0 N (test code = IG%) LYMPHOCYTE % (test 35.1 % 20.5-45.5 N code = LY%) MONOCYTE % (test code 8.2 % 5.5-11.7 N = MO%) EOSINOPHIL % (test 3.0 % 0.9-2.9 H code = EO%) BASOPHIL % (test code 0.6 % 0.2-1.0 N = BA%) NUCLEATED RBC % (test 0.0 % 0-1.0 N code = NRBC%) NEUTROPHIL # (test 3.49 x10 3/uL 2.2-4.8 N code = NT#) IMMATURE GRANULOCYTE # 0.01 x10 3/uL 0-0.03 N (test code = IG#) LYMPHOCYTE # (test 2.31 x10 3/uL 1.3-2.9 N code = LY#) MONOCYTE # (test code 0.54 x10 3/uL 0.3-0.8 N = MO#) EOSINOPHIL # (test 0.20 x10 3/uL 0.0-0.2 N code = EO#) BASOPHIL # (test code 0.04 x10 3/uL 0.0-0.1 N = BA#) - XR CHEST 2 [id number] 11:25:00 FAX: Jassi Nguyen MD [phone] [place]: St: PRE FAX: Sharri Snow [phone] Name: ALINA SZYMANSIK GILLIAN [facility] : 1945 Age/S: 74/F [address] Unit #: [id number] [place]: [place] [address] Phys: Jassi Montemayor MD Acct: C [id number] Dis Date: Status: PRE SDC PHONE #: [phone] Exam Date: 03/26/20206 FAX #: [phone] Reason: PREOP EXAMS: CPT CODE: [id number] XR CHEST 2 V 76590 EXAM: - XR CHEST 2 V HISTORY: PREOP Location code:C3 COMPARISON: 01/22/2018 FINDINGS: PA and lateral view of the chest is provided. Scarring inthe right midlung zone with surgical clips about the upper abdomen and vertebroplasty changes are similar. Heart size and vascularity are within normal limits. The lungs are clear of focal consolidation. There is no pneumothorax or significant effusion. IMPRESSION: 1. No radiographic evidence of acute cardiopulmonary process. at 1125 Reported and signed by: Rogerio Sierra MD CC: Jassi Montemayor MD; Sharri Baca DO Technologist: Real Lopez [facility] Date/Time/By: 03/26/2020 (1125) : By: [email or web address] PAGE 1 Signed Report FAX: Jassi Nguyen MD [phone] [place]: St: PRE FAX: Sharri Snow [phone] Name: ALINA SZYMANSKI GILLIAN [facility] : 1945 Age/S: 74/F [address] Unit #: [id number] Loc: [place] [address] Phys: Jassi Montemayor MD Acct: [id number] Dis Date: Status: PRE SDC PHONE #: [phone] Exam Date: 03/26/2020 1116 FAX #: [phone] Reason: PREOPEXAMS: CPT CODE: [id number] XR CHEST 2 V 25094 <Continued> Orig Print D/T: S: 03/26/2020 (2825) PAGE 2 Signed ReportBASIC METABOLIC [id number] 11:22:00 Test Item Value Reference Range Interpretation Comments SODIUM (test code = 145 mmol/L 137-145 N NA) POTASSIUM (test code 4.9 mmol/L 3.4-5.0 N = K) CHLORIDE (test code = 104 mmol/L 98-107 N CL) CARBON DIOXIDE (test 32 mmol/L 22-30 H code = CO2) GLUCOSE (test code = 78 mg/dL 74-106 N GLU) BLOOD UREA NITROGEN 32 mg/dL 7-17 H (test code = BUN) GLOMERULAR FILTRATION 47 >60 L The es timated RATE (test code = glomerular filtration GFR) rate is compute d usingpatient ra ce, age (>18), sex, and serum creatinine. If anyof the needed data elements are mi ssing the Laboratory cannot compute an henry mation of the glomerul ar filtration rate . CREATININE (test code 1.2 mg/dL 0.5-1.0 H = CREAT) CALCIUM (test code = 9.5 mg/dL 8.4-10.2 N CA) PROTHROMBIN [id number] 11:16:00 Test Item Value Reference Range Interpretation Comments PROTHROMBIN TIME 10.5 SECONDS 9.2-12.1 N PATIENT (test code = PTP) INTERNATIONAL NORMAL 1.0 The INR is to be used RATIO (test code = only for monitoring INR) ORAL ANTICOAGULANTTH ERAPY. Indicati on INR Value1. Prophylaxis/chioma atment of: Venous Thrombosis, Pul monary Embolism 2.0 - 3.02. Preventi on of systemic emboli sm from: Tiss ue heart valves 2.0 - 3.0 Acute myocardial infa rction (to present systemic emboli sm)* 2.0 - 3.0 Valvular heart disease 2.0 - 3.0 Atrial fibrillation 2.0 - 3.03. [employer] al prosthetic valv es (high risk) 2.5 - 3.5 * If oral anticoagulant t herapy is elected to preventrecurren t myocardial infa rction, an INR of 2.5-3 .5 isrecommended, consistent with Food and Drug Administrationr ecommen dations. IS PATIENT ON ANTICOAGULANTS ? YESLIST ANTICOAGULANT/ANTI PLT MEDICATION: AspirinTHROMBOPLASTIN TIME [id number] 11:16:00 Test Item Value Reference Range Interpretation Comments THROMBOPLASTIN TIME 32.6 SECONDS 23.4-37.0 N Therap eutic Range PARTIAL (test code = for Hep nathan PTT) EFFECTIVE Heparin IU/mL aPT T Seconds0.3 64.30.7 88.8 IS PATIENT ON ANTICOAGULANTS ? YESLIST ANTICOAGULANT/ANTI PLT MEDICATION: AspirinSURGICAL [id number] 17:16:00 RUN DATE: 01/26/18 [facility] *LIVE* PAGE 1 RUN TIME: 1717 Specimen Inquiry RUN USER: INTERFACE PATIENT: OMERALINA SORENSEN GILLIAN LOC: [facility] U #: [id number] AGE/SX: 72/F ROOM: RE01/23/18REG DR: July Valentin MD : 47 BED: DIS: STATUS: [facility] [place]: SPEC #: [id number] RECD: 01/23/18 STATUS: JOSELIN ECHEVERRIA #: [id number] LOLY: 01/23/18 [facility] DR: July Valentin MD ENTERED: 01/25/18 SP TYPE: SURG SPEC OTHR DR: Autumn Rose MD ORDERED: GM LEVEL 4 CODES: [id number] - COLON, NOS COPIES TO: July Valentin MD [address] [address] Autumn Rose MD [address] [place] [address] PROCEDURES: GM LEVEL 4 (Incomplete) TISSUES: 1. COLON, NOS - Colon, random, bx. FINAL DIAGNOSIS Colon, random, bx.: No atypical cellular features. GROSS AND MICROSCOPIC GROSS EXAMINATION: Received is/are the specimen/s designated with the appropriate dimensions and block designation: 1. Colon, random, bx.: 3 segments of pink-arceo tissue, measuring up to 0.2 cm. in greatest dimension each. MICROSCOPIC EXAMINATION: Sections of the "Colon, random, bx." reveal changes of no atypical cellular features. POST-OP DIAGNOSIS Colorectal neoplasm, hemorrhoids otherwise normal CONTINUED ON NEXT PAGE RUN DATE: 01/26/18 [facility] *LIVE* PAGE 2 RUN TIME: 1717 Specimen Inquiry RUN USER: INTERFACE SPEC #: [id number] PATIENT: ALINA SZYMANSKI GILLIAN #[id number] (Continued) - PRE-OP DIAGNOSIS Post cholecystectomy syndrome, irritable bowel sydrome, post gastric surgery Signed SIGNATURE ON FILE Kalpana Clark MD 01/26/18 1716 END OF REPORT
[2021-11-14] MEDS ORDERED: METOPROLOL TARTRATE 5 MG/5 ML INJ IV ONE ×2 (14:38→19:42)
[2021-11-14] MEDS ORDERED: NA CHLORIDE 0.9% 500 ML ONE (14:38)
--- NOTE | 2021-11-14 14:39 | RAD REPORT ---
EXAM DESCRIPTION: CT - Ct Stroke Brain Wo Cont - 11/14/2021 2:32 pm CLINICAL HISTORY: Weaknessslurred speech COMPARISON: No comparisons TECHNIQUE: Axial 5 millimeter thick images of the head were obtained without IV contrast. All CT scans are performed using dose optimization technique as appropriate and may include automated exposure control or mA/KV adjustment according to patient size. FINDINGS: No intracranial hemorrhage, mass, or cerebral edema. No acute cortical based infarction. N o cortical edema or sulcal effacement. Moderate atrophy changes are present with ventricles in propor tion to volume loss. Chronic ischemic changes are scattered in the cerebral white matter mild in degr ee. No extra-axial fluid collections. [place] matter-white matter differentiation is preserved. Visualized portions of the mastoid air cells, paranasal sinuses, and orbits are unremarkable. Findings telephoned to Dr. Encarnacion 1428 hours IMPRESSION: No CT evidence of acute intracranial process. Moderate atrophy changes are present. Chronic ischemic change and mild which could potentially mask n onhemorrhagic CVA. Follow-up MRI imaging can be performed as clinical findings warrant.
[2021-11-14 14:43] LABS: Protime INR 1.04
[2021-11-14 14:46] LABS: Absolute Lymphocytes (CBC) 2.6 K/uL (0.7-4.9); Hematocrit 45.9 % (36.0-45.0); Lymphocytes % 26.4 % (15.3-44.8); MPV 7.7 fL (7.6-11.3); RBC Red Blood Cell Count 5.29 M/uL (3.86-4.86)
[2021-11-14 14:52] LABS: Potassium 3.6 mmol/L (3.5-5.1)
--- NOTE | 2021-11-14 15:55 | RAD REPORT ---
EXAM DESCRIPTION: CT - Neck Angio - 11/14/2021 3:29 pm CLINICAL HISTORY: Stroke/TIA, determine embolic source TECHNIQUE: During dynamic enhancement using nonionic IV contrast, axial 2 mm thick images of the nec k were obtained. Sagittal and axial reconstruction images were generated using MIP technique and revi ewed. All CT scans are performed using dose optimization technique as appropriate and may include automated exposure control or mA/KV adjustment according to patient size. COMPARISON: CT head same date FINDINGS: No aneurysm or vascular malformation identified. No carotid or vertebral dissection. Aortic arch is 3 vessel configuration. Left subclavian origin calcifications are present without sten osis. Vertebral artery origins are unremarkable. No stenosis, vasculitis or other significant carotid artery finding. No focal abnormality of either vertebral artery. Basilar artery is normal. Left vert ebral artery is dominant as a normal variant. The subclavian arteries as imaged are unremarkable. IMPRESSION: Negative CT angio neck examination for acute or significant finding.
--- NOTE | 2021-11-14 15:57 | RAD REPORT ---
EXAM DESCRIPTION: CT - Head angio - 11/14/2021 3:29 pm CLINICAL HISTORY: aphasia TECHNIQUE: During dynamic enhancement using nonionic IV contrast, axial 1 millimeter thick images of the head were obtained. Sagittal and axial reconstruction images were generated using MIP technique and reviewed. All CT scans are performed using dose optimization technique as appropriate and may include automated exposure control or mA/KV adjustment according to patient size. COMPARISON: CT angio neck same date, CT head same date FINDINGS: No aneurysm or vascular malformation identified. Major venous sinuses are patent. No stenosis, named branch occlusion, vasculitis or other significant vascular finding identifiable. Patient has a large right-side posterior communicating artery and a small posterior cerebral artery P 1 segment. 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 This is a no rmal variant. Anterior communicating artery is present. There is a small left PCOM. IMPRESSION: Negative CT angio head examination for acute finding.
--- NOTE | 2021-11-14 16:16 | RAD REPORT ---
EXAM DESCRIPTION: RAD - Chest Single View - 11/14/2021 3:39 pm CLINICAL HISTORY: strokechest film COMPARISON: None TECHNIQUE: AP portable chest image was obtained 11/14/2021 3:39 pm . FINDINGS: Prominent interstitial pattern is seen probably baseline. Mild interstitial edema or infil trate could be masked. No failure or volume overload. Cardiomegaly is present with no vascular engorg ement. No measurable pleural effusion and no pneumothorax. No acute bony abnormality seen. No acute a ortic findings suspected. IMPRESSION: No acute cardiopulmonary process. Prominent interstitial pattern is favored to be chronic rather than interstitial edema or infiltrate.
[2021-11-14 16:46] LABS: Urine Blood Negative (Negative); Urine Glucose Negative (Negative); Urine Protein Negative (Negative); Urine pH 6.5 (5.0-7.0)
--- NOTE | 2021-11-14 17:46 | ER ---
Nurse's Notes [facility] Name: Cesar Mcfarland Age: 76 yrs Sex: Female : 1945 Arrival Date: 11/14/2021 Time: 14:10 Bed 24 Private MD: Diagnosis: Transient cerebral ischemic attack, unspecified;Expressive aphasia;Atrial Fibrillation with RVR Presentation: 11/14 14:08 Chief complaint: Patient states: "I am having trouble speaking since 9 am when I woke aa5 up". Speaking difficulty noted. Pt also reports left sided weakness. Last known normal was last night. 14:08 Coronavirus screen: At this time, the client does not indicate any symptoms associated aa5 with coronavirus-19. Ebola Screen: No symptoms or risks identified at this time. Initial Sepsis Screen: Does the patient meet any 2 criteria? HR > 90 bpm. Does the patient have a suspected source of infection? No. Patient's initial sepsis screen is negative. Risk Assessment: Do you want to hurt yourself or someone else? Patient reports no desire to harm self or others. Onset of symptoms was November 14, 2021. 14:08 Acuity: KRIS 2 aa5 14:08 Method Of Arrival: Wheelchair aa5 14:08 An acute neurological deficit is present. Pre-hospital glucose is not applicable to aa5 this patient. Triage Assessment: 14:10 The onset of the patients symptoms was at an unknown time. aa5 Stroke Activation: Symptom onset > 6 hours Physician: Stroke Attending; Name: ; Notified At: ; Arrived At: Physician: Chief Stroke Resident; Name: ; Notified At: ; Arrived At: Physician: Stroke Resident; Name: ; Notified At: ; Arrived At: Physician: ED Attending; Name: ; Notified At: ; Arrived At: Physician: ED Resident; Name: ; Notified At: ; Arrived At: Historical: - Allergies: 14:15 Demerol; aa5 14:15 Morphine; aa5 14:15 Aggrenox; aa5 - Home Meds: 14:15 Plavix 75 mg Oral tab 1 tab once daily [Active]; gabapentin 400 mg oral cap 1 cap in aa5 the morning and 2 caps in the evening [Active]; furosemide 40 mg Oral tab once daily [Active]; metoprolol tartrate 50 mg Oral tab 2 times per day [Active]; levetiracetam 750 mg oral Tb24 1 tab in the morning and 2 tabs in the evening [Active]; 14:15 hydrocodone-acetaminophen 5-325 mg Oral tab twice a day [Active]; aa5 - PMHx: 14:15 TIA; Seizure; Atrial fibrillation; Hypertensive disorder; aa5 - Immunization history:: Adult Immunizations unknown, Client reports receiving the 1st dose of the Covid vaccine, Moderna. - Social history:: Smoking status: Patient denies any tobacco usage or history of. Screenin:30 Abuse screen: Denies threats or abuse. Nutritional screening: No deficits noted. aa5 Tuberculosis screening: No symptoms or risk factors identified. Fall Risk No fall in past 12 months (0 pts). Secondary diagnosis (15 points) TIA, IV access (20 points). Ambulatory Aid- None/Bed Rest/Nurse Assist (0 pts). Gait- Normal/Bed Rest/Wheelchair (0 pts) Mental Status- Oriented to own ability (0 pts). Total Bernal Fall Scale indicates Low Risk Score (25-44 pts). Fall prevention measures have been instituted. Side Rails Up X 2 Placed close to Nursing Station. Assessment: 14:09 Reassessment: Pt to CT via wheelchair. . aa5 14:14 Reassessment: Pt back from CT scan . aa5 14:15 General: Appears uncomfortable, Behavior is cooperative, anxious. Pain: Denies pain. aa5 Neuro: Level of Consciousness is awake, alert, obeys commands, Oriented to person, place, time, situation, Coating Operator are weak bilaterally Moves all extremities. Weakness in bilateral hand(s) arm(s) leg(s) Speech Difficulty speaking noted, speech is slow. No slurred speech noted. . Facial symmetry appears normal, Pupils are PERRLA, Intact Reports blurred vision weakness in left arm and left leg since this morning at 0900. Denies headache. Cardiovascular: Heart tones S1 S2 present Rhythm is atrial fibrillation with rapid ventricular response. Respiratory: Airway is patent Respiratory effort is even, unlabored, Respiratory pattern is regular, symmetrical. GI: Abdomen is round non-distended, Bowel sounds present X 4 quads. Abd is soft and non tender X 4 quads. : No signs and/or symptoms were reported regarding the genitourinary system. EENT: No signs and/or symptoms were reported regarding the EENT system. Derm: Skin is pink, warm \\T\\ dry. Musculoskeletal: Range of motion: intact in all extremities. 14:15 VAN Scoring: Arm Drift: Patients demonstrates NO arm weakness. Patient is VAN Negative. aa5 Visual Disturbance: No visual disturbance noted. Aphasia: No aphasia noted. Neglect: No neglect noted. 14:30 T-PA (Activase) Screening: Indications: No evidence of intracranial hemorrhage or CT of aa5 head and no evidence of peripheral hemorrhage or recent CVA: Yes. Contraindications: Patient reports onset of signs and symptoms of stroke greater than 6 hours ago: Yes. 15:00 Neuro: Level of Consciousness is alert, obeys commands, Pt in bed with eyes closed. . aa5 Oriented to person, place, time, situation, Coating Operator are weak bilaterally Moves all extremities. Weakness in bilateral hand(s) arm(s) leg(s) Speech Speech is slow but pt reports speech is improving, no difficulty speaking noted at this time. . Facial symmetry appears normal, Reports weakness in left arm and left leg. Cardiovascular: Rhythm is atrial fibrillation with rapid ventricular response. Respiratory: Airway is patent Respiratory effort is even, unlabored, Respiratory pattern is regular, symmetrical. Derm: Skin is pink, warm \\T\\ dry. 15:00 Patient has been NPO before screening. The patient is alert, and able to follow aa5 commands. The patient does not exhibit slurred or garbled speech. The patient is exhibiting difficulty speaking. Provider notified of the indication for Speech Therapy consult. The patient failed the bedside swallow screening. The patient will be kept NPO until cleared by Speech Therapy or Physician. Provider notified of bedside swallow screening results: Malcom Encarnacion DO. 15:00 The patient does not exhibit difficulty understanding words. The patient is able to aa5 swallow own secretions with no drooling or need for suction. Not completed Not completed. 15:11 Reassessment: Pt to CT for CT Angio via stretcher. . aa5 16:00 Reassessment: Patient is alert, oriented x 3, equal unlabored respirations, skin aa5 warm/dry/pink. Pt assisted with bedpan. . 16:00 Cardiovascular: Rhythm is atrial fibrillation with rapid ventricular response. aa5 16:00 Neuro: Level of Consciousness is awake, alert, obeys commands, Oriented to person, aa5 place, time, situation, Coating Operator are weak bilaterally Moves all extremities. Speech is normal, Facial symmetry appears normal, Intact. 17:00 Reassessment: Patient is alert, oriented x 3, equal unlabored respirations, skin aa5 warm/dry/pink. Pt holding a conversation with family. . 17:57 Reassessment: Dr. Encarnacion reminded pt failed swallow screen, PO medications cancelled. . aa5 18:00 Reassessment: Pt assisted with bedpan, using bedpan pt's HR increases to 136bpm, at aa5 rest HR is fluctuating between 109 to 120bpm. was notified of findings. . 18:58 Reassessment: Patient is alert, oriented x 3, equal unlabored respirations, skin aa5 warm/dry/pink. Pt c/o acid reflux, obtained order for Pepcid. . 19:28 Reassessment: Contacted hospitalist (Alan Hyatt, ANETA), pt's HR now fluctuating between aa5 124 to 180 bpm after using bedpan, A-fib with RVR. Pt c/o phil leg tingling and phil leg pain that began just now. Pt appears uncomfortable. . 19:47 General: Behavior is anxious, restless. Pain: Complains of pain in right leg and left as6 leg. 11/17 00:38 Reassessment: 2 L 02 N/C applied patient desat 89% RA. 02 sat increased to 95%. ag7 Vital Signs: 11/14 14:15 Weight 63.5 kg (R); Height 5 ft. 1 in. (154.94 cm) (R); Pain 0/10; aa5 14:33 BP 119 / 72; Pulse 150; Resp 18 S; Temp 97.1(A); Pulse Ox 97% on R/A; aa5 14:38 BP 126 / 85; Pulse 147; Resp 16 S; Pulse Ox 98% on R/A; aa5 14:44 BP 125 / 98; Pulse 129; Resp 16 S; Pulse Ox 94% on R/A; aa5 14:50 Pulse 114; Pulse Ox 96% on 2 lpm NC; aa5 15:06 BP 124 / 85; Pulse 116; Resp 18 S; Pulse Ox 100% on 2 lpm NC; aa5 15:50 BP 132 / 79; Pulse 130; Resp 16 S; Temp 97.2(TE); Pulse Ox 100% on 2 lpm NC; aa5 16:30 BP 128 / 66; Pulse 111; Resp 18 S; Pulse Ox 100% on 2 lpm NC; aa5 17:30 BP 124 / 90; Pulse 115; Resp 14 S; Pulse Ox 100% on 2 lpm NC; aa5 18:30 BP 121 / 77; Pulse 108; Resp 18; Temp 97.9(TE); Pulse Ox 100% on 2 lpm NC; aa5 19:30 BP 118 / 78; Pulse 163; Resp 22 S; Pulse Ox 100% on 2 lpm NC; aa5 19:46 BP 149 / 104; Pulse 133; Resp 23 S; Pulse Ox 97% on R/A; as6 14:15 Body Mass Index 26.45 (63.50 kg, 154.94 cm) aa5 NIH Stroke Scale Scores: 14:15 NIHSS Score: 1 aa5 14:18 NIHSS Score: 2 ms3 16:00 NIHSS Score: 0 aa5 18:00 NIHSS Score: 0 aa5 ED Course: 14:08 Patient arrived in ED. aa5 14:12 Malcom Encarnacion DO is Attending Physician. ms3 14:15 Arm band placed on. aa5 14:15 Patient has correct armband on for positive identification. Placed in gown. Bed in low aa5 position. Call light in reach. Side rails up X2. Client placed on continuous cardiac and pulse oximetry monitoring. NIBP monitoring applied. 14:22 Initial lab(s) drawn, by laborer road, sent to lab. EKG done, by ED staff, reviewed by jlJasmin Encarnacion DO. Inserted saline lock: 20 gauge in right antecubital area, using aseptic technique. Blood collected. 14:29 Yen Oreilly, RN is Primary Nurse. aa5 14:33 CT Stroke Brain w/o Contrast In Process Unspecified. EDMS 15:13 Triage completed. aa5 15:19 No provider procedures requiring assistance completed. aa5 15:[address] In Process Unspecified. EDMS 15:[address] In Process Unspecified. EDMS 15:41 Stroke CXR 1 View In Process Unspecified. EDMS 17:44 Denis Arango is Hospitalizing Provider. ms3 19:11 Primary Nurse role handed off by OreillyYen sung RN mw2 19:15 Report given to YARITZA Narayanan. 19:26 Oracio Ham RN is Primary Nurse. 11/15 06:47 Patient admitted, IV remains in place. 07:57 Primary Nurse role handed off by Oracio Ham RN bd 11/16 08:44 Brandon Zavaleta RN is Primary Nurse. ll1 Administered Medications: 11/14 14:33 Drug: Sodium Chloride 0.9% 500 ml Route: IVPB; Site: right antecubital; 11/15 06:46 Follow up: Response: No adverse reaction; IV Status: Completed infusion; IV Intake: as6 500ml 11/14 14:33 Drug: Lopressor (metoprolol) 5 mg Route: IVP; Site: right antecubital; 14:38 Drug: Lopressor (metoprolol) 5 mg Route: IVP; Site: right antecubital; 14:44 Drug: Lopressor (metoprolol) 5 mg Route: IVP; Site: right antecubital; 11/15 06:46 Follow up: Response: No adverse reaction 11/14 17:56 CANCELLED (pt failed swallow screenn): Aspirin 325 mg PO once 17:56 CANCELLED (pt did failed swallow screenn): Clopidogrel 75 mg PO once 17:57 CANCELLED (pt failed swallow screenn): Metoprolol 50 mg PO once 19:03 Drug: Pepcid (famotidine) 20 mg Route: IVP; Site: right antecubital; aa5 19:13 Follow up: Response: No adverse reaction 19:45 Drug: Lopressor (metoprolol) 5 mg Route: IVP; Site: right antecubital; 11/15 06:46 Follow up: Response: No adverse reaction 11/14 19:45 Drug: Lovenox (enoxaparin) 1 mg/kg Route: Sub-Q; Site: left lower abdomen; 11/15 06:47 Follow up: Response: No adverse reaction 11/14 20:34 Drug: fentaNYL (PF) 25 mcg Route: IVP; Site: right antecubital; 11/15 06:47 Follow up: Response: No adverse reaction; RASS: Restless (+1) as6 11/14 21:10 CANCELLED (Other Intervention Used): Lopressor (metoprolol) 5 mg IVP once; Hold for SBP la1 <100 or HR <60. 22:33 Not Given (Other Intervention Used): Lopressor (metoprolol) 5 mg IVP once; Hold for SBP la1 <100 or HR <60. Medication: 11/15 06:47 VIS not applicable for this client. as6 Point of Care Testing: Blood Glucose: 11/14 14:15 Blood Glucose: 164 mg/dL; aa5 Ranges: Intake: 11/15 06:46 IV: 500ml; Total: 500ml. as6 Outcome: 11/14 17:45 Decision to Hospitalize by Provider. ms3 11/15 06:47 Admitted to ER Hold. Please see [employer] for further documentation. as6 Condition: stable Instructed on the need for admit. 11/17 10:22 Patient left the ED. vg1 NIH Stroke Scale - NIH Stroke Score Date: 11/14/2021 Time: 14:15 Total Score = 1 1a. Level of Consciousness (LOC) - 0(Alert) 1b. Level of Consciousness (LOC) (Month \\T\\ Age) - 0(Both) 1c. LOC Commands (Open \\T\\ Closes Eyes/Apparel Cutter) - 0(Both) 2. Best Gaze (Lateral Gaze Paresis) - 0(Normal) 3. Visual Field Loss - 0(No visual loss) 4. Facial Palsy - 0(Normal) 5a. Left Arm: Motor (10-second hold) - 0(No drift) 5b. Right Arm: Motor (10-second hold) - 0(No drift) 6a. Left Leg: Motor (5-second hold - always test supine) - 0(No drift) 6b. Right Leg: Motor (5-second hold - always test supine) - 0(No drift) 7. Limb Ataxia (finger/nose \\T\\ heel/riggins - test with eyes open) - 0(Absent) 8. Sensory Loss (pinprick arms/legs/face) - 0(Normal) 9. Best Language: Aphasia (description/naming/reading) - 0(No aphasia) 10. Dysarthria (speech clarity - read or repeat words) - 1(Mild to Moderate) 11. Extinction and Inattention (visual/tactile/auditory/spatial/personal) - 0(No abnormality) Initials: aa5 NIH Stroke Scale - NIH Stroke Score Date: 11/14/2021 Time: 14:18 Total Score = 2 1a. Level of Consciousness (LOC) - 0(Alert) 1b. Level of Consciousness (LOC) (Month \\T\\ Age) - 0(Both) 1c. LOC Commands (Open \\T\\ Closes Eyes/Apparel Cutter) - 0(Both) 2. Best Gaze (Lateral Gaze Paresis) - 0(Normal) 3. Visual Field Loss - 0(No visual loss) 4. Facial Palsy - 0(Normal) 5a. Left Arm: Motor (10-second hold) - 0(No drift) 5b. Right Arm: Motor (10-second hold) - 0(No drift) 6a. Left Leg: Motor (5-second hold - always test supine) - 0(No drift) 6b. Right Leg: Motor (5-second hold - always test supine) - 0(No drift) 7. Limb Ataxia (finger/nose \\T\\ heel/riggins - test with eyes open) - 0(Absent) 8. Sensory Loss (pinprick arms/legs/face) - 0(Normal) 9. Best Language: Aphasia (description/naming/reading) - 2(Severe aphasia) 10. Dysarthria (speech clarity - read or repeat words) - 0(Normal) 11. Extinction and Inattention (visual/tactile/auditory/spatial/personal) - 0(No abnormality) Initials: ms3 NIH Stroke Scale - NIH Stroke Score Date: 11/14/2021 Time: 16:00 Total Score = 0 1a. Level of Consciousness (LOC) - 0(Alert) 1b. Level of Consciousness (LOC) (Month \\T\\ Age) - 0(Both) 1c. LOC Commands (Open \\T\\ Closes Eyes/Apparel Cutter) - 0(Both) 2. Best Gaze (Lateral Gaze Paresis) - 0(Normal) 3. Visual Field Loss - 0(No visual loss) 4. Facial Palsy - 0(Normal) 5a. Left Arm: Motor (10-second hold) - 0(No drift) 5b. Right Arm: Motor (10-second hold) - 0(No drift) 6a. Left Leg: Motor (5-second hold - always test supine) - 0(No drift) 6b. Right Leg: Motor (5-second hold - always test supine) - 0(No drift) 7. Limb Ataxia (finger/nose \\T\\ heel/riggins - test with eyes open) - 0(Absent) 8. Sensory Loss (pinprick arms/legs/face) - 0(Normal) 9. Best Language: Aphasia (description/naming/reading) - 0(No aphasia) 10. Dysarthria (speech clarity - read or repeat words) - 0(Normal) 11. Extinction and Inattention (visual/tactile/auditory/spatial/personal) - 0(No abnormality) Initials: aa5 NIH Stroke Scale - NIH Stroke Score Date: 11/14/2021 Time: 18:00 Total Score = 0 1a. Level of Consciousness (LOC) - 0(Alert) 1b. Level of Consciousness (LOC) (Month \\T\\ Age) - 0(Both) 1c. LOC Commands (Open \\T\\ Closes Eyes/Apparel Cutter) - 0(Both) 2. Best Gaze (Lateral Gaze Paresis) - 0(Normal) 3. Visual Field Loss - 0(No visual loss) 4. Facial Palsy - 0(Normal) 5a. Left Arm: Motor (10-second hold) - 0(No drift) 5b. Right Arm: Motor (10-second hold) - 0(No drift) 6a. Left Leg: Motor (5-second hold - always test supine) - 0(No drift) 6b. Right Leg: Motor (5-second hold - always test supine) - 0(No drift) 7. Limb Ataxia (finger/nose \\T\\ heel/riggins - test with eyes open) - 0(Absent) 8. Sensory Loss (pinprick arms/legs/face) - 0(Normal) 9. Best Language: Aphasia (description/naming/reading) - 0(No aphasia) 10. Dysarthria (speech clarity - read or repeat words) - 0(Normal) 11. Extinction and Inattention (visual/tactile/auditory/spatial/personal) - 0(No abnormality) Initials: aa5 Signatures: Dispatcher [employer] EDSierra Campbell Brenda, RN RN bb Yen Oreilly RN RN aa5 Brenden Handy RN RN jl7 Christi Clement 2 Kristal Jacobo 2 June Anand RN RN vg1 Brandon Zavaleta RN RN ll1 Malcom Encarnacion, DO ms3 Oracio Ham RN RN as6 Gabrielle Hernandez, YARITZA RN ag7 Alan Hyatt [facility] Corrections: (The following items were deleted from the chart) 11/14 14:58 14:10 Patient arrived in ED. am2 aa5 15:29 14:08 Stroke Activation: Symptom onset < 3 hours aa5 aa5 19:14 14:33 BP 119 / 72; Pulse 150bpm; Resp 18bpm; Spontaneous; Pulse Ox 97% RA; aa5 aa5 19:15 15:50 BP 132 / 79; aa5 aa5 19:51 18:00 Reassessment: Pt assisted with bedpan, using bedpan pt's HR increases to aa5 136bpm, at rest HR is fluctuating between 109 to 120bpm. . aa5
--- NOTE | 2021-11-14 17:46 | EDPHYS ---
Physician Documentation [facility] Name: Cesar Mcfarland Age: 76 yrs Sex: Female : 1945 Arrival Date: 11/14/2021 Time: 14:10 Bed 24 Private MD: ED Physician Malcom Encarnacion HPI: 11/14 15:02 This 76 yrs old Female presents to ER via Unassigned with complaints of S/S of Possible ms3 Stroke. 15:02 The patient's problem is reported as Difficulty speaking. Onset: The symptoms/episode ms3 began/occurred Last normal last night. Duration: This was a single incident. Context: Patient called daughter in law 1 hour prior to arrival.. The symptoms are alleviated by nothing. The symptoms are aggravated by nothing. Associated signs and symptoms: The patient has no apparent associated signs or symptoms. Severity of symptoms: Pain is currently a 0 / 10. Historical: - Allergies: 14:15 Demerol; aa5 14:15 Morphine; aa5 14:15 Aggrenox; aa5 - Home Meds: 14:15 Plavix 75 mg Oral tab 1 tab once daily [Active]; gabapentin 400 mg oral cap 1 cap in aa5 the morning and 2 caps in the evening [Active]; furosemide 40 mg Oral tab once daily [Active]; metoprolol tartrate 50 mg Oral tab 2 times per day [Active]; levetiracetam 750 mg oral Tb24 1 tab in the morning and 2 tabs in the evening [Active]; 14:15 hydrocodone-acetaminophen 5-325 mg Oral tab twice a day [Active]; aa5 - PMHx: 14:15 TIA; Seizure; Atrial fibrillation; Hypertensive disorder; aa5 - Immunization history:: Adult Immunizations unknown, Client reports receiving the 1st dose of the Covid vaccine, Moderna. - Social history:: Smoking status: Patient denies any tobacco usage or history of. ROS: 15:02 Constitutional: Negative for fever, and chills. Eyes: Negative for injury, pain, ms3 redness, and discharge, Neck: Negative for injury, pain, and swelling, Respiratory: Negative for shortness of breath, cough, wheezing, and pleuritic chest pain, Abdomen/GI: Negative for abdominal pain, nausea, vomiting, diarrhea, and constipation, Skin: Negative for injury, rash, and discoloration. 15:02 Neuro: Positive for speech changes, weakness. 15:02 All other systems are negative. Exam: 14:18 Skin: Warm, dry with normal turgor. Normal color with no rashes, no lesions, and no ms3 evidence of cellulitis. 14:18 ECG was reviewed by the Attending Physician. 14:18 Neuro: Orientation: is normal, Mentation: is normal, Memory: is normal, Cranial nerves: grossly normal, Cerebellar function: is grossly normal, Motor: is normal. 15:02 Radiologist reports: Negative acute ms3 15:02 Constitutional: This is a well developed, well nourished patient who is awake, alert, and in no acute distress. Head/Face: Normocephalic, atraumatic. Eyes: Pupils equal round and reactive to light, extra-ocular motions intact. Lids and lashes normal. Conjunctiva and sclera are non-icteric and not injected. Periorbital areas with no swelling, redness, or edema. Chest/axilla: Normal chest wall appearance and motion. Nontender with no deformity. 15:02 Cardiovascular: Rate: tachycardic, Rhythm: irregularly irregular, Heart sounds: normal. Vital Signs: 14:15 Weight 63.5 kg (R); Height 5 ft. 1 in. (154.94 cm) (R); Pain 0/10; aa5 14:33 BP 119 / 72; Pulse 150; Resp 18 S; Temp 97.1(A); Pulse Ox 97% on R/A; aa5 14:38 BP 126 / 85; Pulse 147; Resp 16 S; Pulse Ox 98% on R/A; aa5 14:44 BP 125 / 98; Pulse 129; Resp 16 S; Pulse Ox 94% on R/A; aa5 14:50 Pulse 114; Pulse Ox 96% on 2 lpm NC; aa5 15:06 BP 124 / 85; Pulse 116; Resp 18 S; Pulse Ox 100% on 2 lpm NC; aa5 15:50 BP 132 / 79; Pulse 130; Resp 16 S; Temp 97.2(TE); Pulse Ox 100% on 2 lpm NC; aa5 16:30 BP 128 / 66; Pulse 111; Resp 18 S; Pulse Ox 100% on 2 lpm NC; aa5 17:30 BP 124 / 90; Pulse 115; Resp 14 S; Pulse Ox 100% on 2 lpm NC; aa5 18:30 BP 121 / 77; Pulse 108; Resp 18; Temp 97.9(TE); Pulse Ox 100% on 2 lpm NC; aa5 19:30 BP 118 / 78; Pulse 163; Resp 22 S; Pulse Ox 100% on 2 lpm NC; aa5 19:46 BP 149 / 104; Pulse 133; Resp 23 S; Pulse Ox 97% on R/A; as6 14:15 Body Mass Index 26.45 (63.50 kg, 154.94 cm) aa5 NIH Stroke Scale Scores: 14:15 NIHSS Score: 1 aa5 14:18 NIHSS Score: 2 ms3 16:00 NIHSS Score: 0 aa5 18:00 NIHSS Score: 0 aa5 MDM: 14:12 Patient medically screened. ms3 14:18 Differential diagnosis: CVA, TIA, Atrial Fibrillation. ms3 16:39 ED course: Discussed case with Dr Fish. Recommends re-starting anticoagulation, but ms3 will defer to Dr Bee.. 17:42 ED course: Discussed case with Dr Burrows and he agree with starting ASA and Plavix ms3 back. Give Metoprolol 50 mg PO now. Then 50 mg PO BID.. ED course: Discussed case with Dr Arango. He accepts patient. Discussed plan with patient and her family and they understand/ agree with plan. All questions answered. Patient speech improved since arrival in the ED.. 21:50 Data reviewed: vital signs, nurses notes, lab test result(s), radiologic studies. Data ms3 interpreted: security monitor: rate is 106 beats/min, rhythm is atrial fibrillation, with no ectopy, Interpretation: A fib with RVR. Counseling: I had a detailed discussion with the patient and/or guardian regarding: the historical points, exam findings, and any diagnostic results supporting the discharge/admit diagnosis, lab results, radiology results, the need for further work-up and treatment in the hospital. 11/14 14:29 Order name: Glucose, Ancillary Testing; Complete Time: 14:30 EDMS 11/14 14:31 Order name: Glucose, Ancillary Testing EDMS 11/14 14:31 Order name: Basic Metabolic Panel; Complete Time: 16:01 ms3 11/14 14:31 Order name: CBC with Diff; Complete Time: 16:01 ms3 11/14 14:31 Order name: Protime (+inr); Complete Time: 16: ms3 11/14 14:31 Order name: Ptt, Activated; Complete Time: 16: ms3 11/14 16:13 Order name: COVID-19 SARS RT PCR (Document "Date of Onset" if Symptomatic); Complete iw Time: 19:11/14 16:47 Order name: Urine Dipstick-Ancillary; Complete Time: 18:01 EDMS 11/15 03:30 Order name: CBC with Automated Diff; Complete Time: 18:41 EDMS 11/15 03:46 Order name: Comprehensive Metabolic Panel; Complete Time: 18:41 EDMS 11/15 03:46 Order name: Lipid Profile; Complete Time: 18:41 EDMS 11/15 03:46 Order name: T4 Free; Complete Time: 18:41 EDMS 11/15 03:46 Order name: Thyroid Stimulating Hormone; Complete Time: 18:41 EDMS 11/15 04:08 Order name: Manual Differential; Complete Time: 18: EDMS 11/14 14:19 Order name: CT Stroke Brain w/o Contrast; Complete Time: 16: bd 11/14 14:31 Order name: Stroke CXR 1 View; Complete Time: 16: ms3 11/14 14:34 Order name: Head Angio CT; Complete Time: 16: ms3 11/14 14:34 Order name: Neck Angio CT; Complete Time: 16: ms3 11/15 06:30 Order name: C-Reactive Protein; Complete Time: 18:41 EDMS 11/15 07:15 Order name: US; Complete Time: 18:41 EDMS 11/15 14:28 Order name: MRI; Complete Time: 18:41 EDMS 11/15 14:39 Order name: MRI; Complete Time: 18:41 EDMS 11/15 14:44 Order name: MRI; Complete Time: 18:41 EDMS 11/16 03:25 Order name: CBC with Automated Diff EDMS 11/16 03:40 Order name: Comprehensive Metabolic Panel EDMS 11/17 06:58 Order name: Fecal Leukocyte Stain EDMS 11/17 08:41 Order name: CBC with Automated Diff EDMS 11/17 08:47 Order name: RAD EDMS 11/17 08:50 Order name: Comprehensive Metabolic Panel EDMS 11/17 08:50 Order name: Magnesium EDMS 11/14 14:31 Order name: EKG; Complete Time: 14:32 ms3 11/14 14:31 Order name: Accucheck; Complete Time: 14:38 ms3 11/14 14:31 Order name: Cardiac monitoring; Complete Time: 14:38 ms3 11/14 14:31 Order name: EKG - Nurse/Tech; Complete Time: 14:31 ms3 11/14 14:31 Order name: IV Saline Lock; Complete Time: 14:38 ms3 11/14 14:31 Order name: Labs collected and sent; Complete Time: 14:38 ms3 11/14 14:31 Order name: NPO; Complete Time: 14:38 ms3 11/14 14:31 Order name: O2 Per Protocol; Complete Time: 14:38 ms3 11/14 14:31 Order name: O2 Sat Monitoring; Complete Time: 14:38 ms3 11/14 14:31 Order name: Stroke Swallow Screen; Complete Time: 15:23 ms3 EC:18 Rate is 143 beats/min. Rhythm is irregularly irregular. QRS [place] is Normal. Clinical ms3 impression: Atrial Fibrillation and with RVR. Interpreted by me. Administered Medications: 14:33 Drug: Sodium Chloride 0.9% 500 ml Route: IVPB; Site: right antecubital; 11/15 06:46 Follow up: Response: No adverse reaction; IV Status: Completed infusion; IV Intake: as6 500ml 11/14 14:33 Drug: Lopressor (metoprolol) 5 mg Route: IVP; Site: right antecubital; aa5 14:38 Drug: Lopressor (metoprolol) 5 mg Route: IVP; Site: right antecubital; aa5 14:44 Drug: Lopressor (metoprolol) 5 mg Route: IVP; Site: right antecubital; 11/15 06:46 Follow up: Response: No adverse reaction 11/14 17:56 CANCELLED (pt failed swallow screenn): Aspirin 325 mg PO once aa5 17:56 CANCELLED (pt did failed swallow screenn): Clopidogrel 75 mg PO once aa5 17:57 CANCELLED (pt failed swallow screenn): Metoprolol 50 mg PO once aa5 19:03 Drug: Pepcid (famotidine) 20 mg Route: IVP; Site: right antecubital; aa5 19:13 Follow up: Response: No adverse reaction aa5 19:45 Drug: Lopressor (metoprolol) 5 mg Route: IVP; Site: right antecubital; 11/15 06:46 Follow up: Response: No adverse reaction 11/14 19:45 Drug: Lovenox (enoxaparin) 1 mg/kg Route: Sub-Q; Site: left lower abdomen; 11/15 06:47 Follow up: Response: No adverse reaction 11/14 20:34 Drug: fentaNYL (PF) 25 mcg Route: IVP; Site: right antecubital; 11/15 06:47 Follow up: Response: No adverse reaction; RASS: Restless (+1) 11/14 21:10 CANCELLED (Other Intervention Used): Lopressor (metoprolol) 5 mg IVP once; Hold for SBP la1 <100 or HR <60. 22:33 Not Given (Other Intervention Used): Lopressor (metoprolol) 5 mg IVP once; Hold for SBP la1 <100 or HR <60. Point of Care Testing: Blood Glucose: 14:15 Blood Glucose: 164 mg/dL; aa5 Ranges: Critical Glucose Levels:Adult <50 mg/dl or >400 mg/dl <40 mg/dl or >180 mg/dl Disposition Summary: 11/14/21 17:45 Hospitalization Ordered Hospitalization Status: Observation ms3 Provider: Denis Arango ms3 Condition: Stable ms3 Problem: new ms3 Symptoms: have improved ms3 Bed/Room Type: Standard ms3 Location: Telemetry/MedSurg (observation)(11/17/21 08:05) britt Room Assignment: 223(11/17/21 08:05) britt Diagnosis - Transient cerebral ischemic attack, unspecified ms3 - Expressive aphasia ms3 - Atrial Fibrillation with RVR ms3 Forms: - Medication Reconciliation Form ms3 - SBAR form ms3 NIH Stroke Scale - NIH Stroke Score Date: 11/14/2021 Time: 14:15 Total Score = 1 1a. Level of Consciousness (LOC) - 0(Alert) 1b. Level of Consciousness (LOC) (Month \\T\\ Age) - 0(Both) 1c. LOC Commands (Open \\T\\ Closes Eyes/Adult Services Librarian) - 0(Both) 2. Best Gaze (Lateral Gaze Paresis) - 0(Normal) 3. Visual Field Loss - 0(No visual loss) 4. Facial Palsy - 0(Normal) 5a. Left Arm: Motor (10-second hold) - 0(No drift) 5b. Right Arm: Motor (10-second hold) - 0(No drift) 6a. Left Leg: Motor (5-second hold - always test supine) - 0(No drift) 6b. Right Leg: Motor (5-second hold - always test supine) - 0(No drift) 7. Limb Ataxia (finger/nose \\T\\ heel/riggins - test with eyes open) - 0(Absent) 8. Sensory Loss (pinprick arms/legs/face) - 0(Normal) 9. Best Language: Aphasia (description/naming/reading) - 0(No aphasia) 10. Dysarthria (speech clarity - read or repeat words) - 1(Mild to Moderate) 11. Extinction and Inattention (visual/tactile/auditory/spatial/personal) - 0(No abnormality) Initials: aa5 NIH Stroke Scale - NIH Stroke Score Date: 11/14/2021 Time: 14:18 Total Score = 2 1a. Level of Consciousness (LOC) - 0(Alert) 1b. Level of Consciousness (LOC) (Month \\T\\ Age) - 0(Both) 1c. LOC Commands (Open \\T\\ Closes Eyes/Adult Services Librarian) - 0(Both) 2. Best Gaze (Lateral Gaze Paresis) - 0(Normal) 3. Visual Field Loss - 0(No visual loss) 4. Facial Palsy - 0(Normal) 5a. Left Arm: Motor (10-second hold) - 0(No drift) 5b. Right Arm: Motor (10-second hold) - 0(No drift) 6a. Left Leg: Motor (5-second hold - always test supine) - 0(No drift) 6b. Right Leg: Motor (5-second hold - always test supine) - 0(No drift) 7. Limb Ataxia (finger/nose \\T\\ heel/riggins - test with eyes open) - 0(Absent) 8. Sensory Loss (pinprick arms/legs/face) - 0(Normal) 9. Best Language: Aphasia (description/naming/reading) - 2(Severe aphasia) 10. Dysarthria (speech clarity - read or repeat words) - 0(Normal) 11. Extinction and Inattention (visual/tactile/auditory/spatial/personal) - 0(No abnormality) Initials: ms3 NIH Stroke Scale - NIH Stroke Score Date: 11/14/2021 Time: 16:00 Total Score = 0 1a. Level of Consciousness (LOC) - 0(Alert) 1b. Level of Consciousness (LOC) (Month \\T\\ Age) - 0(Both) 1c. LOC Commands (Open \\T\\ Closes Eyes/Adult Services Librarian) - 0(Both) 2. Best Gaze (Lateral Gaze Paresis) - 0(Normal) 3. Visual Field Loss - 0(No visual loss) 4. Facial Palsy - 0(Normal) 5a. Left Arm: Motor (10-second hold) - 0(No drift) 5b. Right Arm: Motor (10-second hold) - 0(No drift) 6a. Left Leg: Motor (5-second hold - always test supine) - 0(No drift) 6b. Right Leg: Motor (5-second hold - always test supine) - 0(No drift) 7. Limb Ataxia (finger/nose \\T\\ heel/riggins - test with eyes open) - 0(Absent) 8. Sensory Loss (pinprick arms/legs/face) - 0(Normal) 9. Best Language: Aphasia (description/naming/reading) - 0(No aphasia) 10. Dysarthria (speech clarity - read or repeat words) - 0(Normal) 11. Extinction and Inattention (visual/tactile/auditory/spatial/personal) - 0(No abnormality) Initials: aa5 NIH Stroke Scale - NIH Stroke Score Date: 11/14/2021 Time: 18:00 Total Score = 0 1a. Level of Consciousness (LOC) - 0(Alert) 1b. Level of Consciousness (LOC) (Month \\T\\ Age) - 0(Both) 1c. LOC Commands (Open \\T\\ Closes Eyes/Adult Services Librarian) - 0(Both) 2. Best Gaze (Lateral Gaze Paresis) - 0(Normal) 3. Visual Field Loss - 0(No visual loss) 4. Facial Palsy - 0(Normal) 5a. Left Arm: Motor (10-second hold) - 0(No drift) 5b. Right Arm: Motor (10-second hold) - 0(No drift) 6a. Left Leg: Motor (5-second hold - always test supine) - 0(No drift) 6b. Right Leg: Motor (5-second hold - always test supine) - 0(No drift) 7. Limb Ataxia (finger/nose \\T\\ heel/riggins - test with eyes open) - 0(Absent) 8. Sensory Loss (pinprick arms/legs/face) - 0(Normal) 9. Best Language: Aphasia (description/naming/reading) - 0(No aphasia) 10. Dysarthria (speech clarity - read or repeat words) - 0(Normal) 11. Extinction and Inattention (visual/tactile/auditory/spatial/personal) - 0(No abnormality) Initials: aa5 Signatures: Dispatcher [employer] EDMS Marni Harris, RN RN Mellisa Haynes, RN RN bb Yen Oreilly, RN RN aa5 Alan Hyatt, BUSINESS TRANSFORMATION CONSULTANT-C BUSINESS TRANSFORMATION CONSULTANT-Cla1 Aziza Anand, RN RN Chon Plasencia, RN RN ja1 Malcom Encarnacion DO DO ms3 Oracio Ham RN YARITZA as6 Janna Cardozo, RN RN vc1 Corrections: (The following items were deleted from the chart) 17:56 17:41 Aspirin 325 mg PO once ordered. ms3 aa5 17:56 17:41 Clopidogrel 75 mg PO once ordered. ms3 aa5 17:57 17:35 Metoprolol 50 mg PO once ordered. ms3 aa 19:20 17:45 Telemetry/MedSurg (observation) nm3 19:20 17:45 nm3 21:10 21:09 Lopressor (metoprolol) 5 mg IVP once; Hold for SBP <100 or HR <60. la1 ordered. la1 11/16 19:44 11/14 19:20 [facility] ER HOLD [facility] [place] 11/16 19:44 11/14 19:20 [place]- [facility] [place] 11/16 19:47 19:44 Telemetry/MedSurg (observation) vc1 19:47 19:44 223 vc1 19:49 19:47 vc1 vc1 11/17 08:05 11/16 19:47 [facility] ER HOLD vc1 ja1 05/26 08:05 05/25 19:49 ERHOLD- vc1 ja1
[2021-11-14] MEDS ORDERED: FAMOTIDINE 20 MG/2 ML VIAL IV ONE (19:09)
--- NOTE | 2021-11-14 19:18 | P.HP ---
Certification for Inpatient Patient admitted to: Inpatient With expected LOS: >2 Midnights Patient will require the following post-hospital care: None Practitioner: I am a practitioner with admitting privileges, knowledge of patient current condition, hospital course, and medical plan of care. Services: Services provided to patient in accordance with Admission requirements found in Title 42 Section 412.3 of the Code of Federal Regulations Patient History Date of Service: 11/14/21 Reason for admission: Aphasia, Afib RVR History of Present Illness: 76-year-old female patient with history of TIA/CVA, atrial fibrillation, hypertension, seizures, fibromyalgia presents emergency department for difficulty with her speech as well as some subjective left-sided weakness. Patient reports she went to bed feeling well but when she woke in the morning around 9 AM she noticed that she was having some difficulty with her speech and questionable left-sided weakness. She arrived to the ER around 1400 and was evaluated her CT head without contrast as well as CT head and neck angiogram were negative for any acute findings her symptoms have significantly improved but she is does still have some mild aphasia/dysphagia, she did fail her swallow screen. Patient also noted to be in A. fib RVR with a rate around 120-130 was given IV Lopressor in the ER discussed case with neurology and cardiology plan to give Lopressor IV for A. fib and Lovenox for anticoagulation as she failed swallow screen admit for further evaluation and management. - Past Medical/Surgical History -: TIA/CVA -: Afib -: HTN -: Sz -: Fibromyalgia/chronic pain -: Madiha/Appy/hysterectomy -: hernia repair Psychosocial/ Personal History: Pt lives at home, alone. - Family History Father -: Heart disease, Stroke Mother -: Heart disease, Stroke - Social History Smoking Status: Never smoker Alcohol use: No CD- Drugs: No Caffeine use: Yes Place of Residence: Home Review of Systems 10-point ROS is otherwise unremarkable Neurological: Weakness, Change in Speech, As per HPI Physical Examination - Physical Exam General: Alert, In no apparent distress, Oriented x3 HEENT: Atraumatic, PERRLA, Mucous membr. moist/pink, EOMI, Sclerae nonicteric Neck: Supple, 2+ carotid pulse no bruit, No LAD, Without JVD or thyroid abnormality Respiratory: Clear to auscultation bilaterally, Normal air movement Cardiovascular: No edema, Normal S1 S2, Irregular heart rate/rhythm (A fib rate 120) Capillary refill: <2 Seconds Gastrointestinal: Normal bowel sounds, No tenderness Musculoskeletal: No tenderness Integumentary: No rashes Neurological: Normal strength at 5/5 x4 extr, Sensation intact, Cranial nerves 3-12 intact, Normal affect, Abnormal speech - Studies Laboratory Data (last 24 hrs) 11/14/21 14:19: PT 11.4, INR 1.04, APTT 27.8 11/14/21 14:19: WBC 9.7, Hgb 14.7, Hct 45.9 H, Plt Count 484 H 11/14/21 14:19: Sodium 138, Potassium 3.6, BUN 28 H, Creatinine 1.58 H, Glucose 167 H Assessment and Plan - Plan Assessment: Aphasia/dysphagia suspect ischemic CVA A. fib RVR Seizure disorder Hypertension Fibromyalgia/chronic pain Plan: Aphasia/dysphagia suspect ischemic CVA: N.p.o., speech and physical therapy consults in place. Neurology consulted MRI stroke protocol, echocardiogram and carotid Dopplers ordered. Discussed case with cardiology and neurology recommend initiation of Lovenox given that she failed the swallow screen and will be unable to tolerate any oral anticoagulants at this time until evaluated by speech therapy. A. fib RVR: Patient with chronic A. fib not on chronic anticoagulation patient cannot tell me why after discussing case with cardiology was given dose of full dose Lovenox we will use beta-blockers as needed to control rate. Monitor on telemetry. Echocardiogram ordered Seizure disorder: Well-controlled reports last seizure was a few years ago we will need to hold oral medicationKeppra at this time until she is tolerating p.o. Hypertension: As needed IV medications until patient is tolerating p.o. and can restart home medications Fibromyalgia/chronic pain: As needed pain medication. DVT PPX: Full dose Lovenox Code status: Full Discharge Plan: Home Plan to discharge in: 72 Hours - Advance Directives Does patient have a Living Will: No Does patient have a Durable POA for Healthcare: No - Code Status/Comfort Care Code Status Assessed: Yes (Full code) Critical Care: No Time Spent Managing Pts Care (In Minutes): 70
[2021-11-14] MEDS ORDERED: ENOXAPARIN 60 MG/0.6 ML SQ ONE (19:42)
[2021-11-14] MEDS ORDERED: FENTANYL CITR 100 MCG/2 ML ONE (20:33)
[2021-11-14] MEDS ORDERED: AMIODARONE HCL 150 MG in D5W 100 ML IV STA (22:30)
[2021-11-14] MEDS ORDERED: AMIODARONE HCL 150 MG/3 ML INJ IV ONE (22:39)
[2021-11-14] MEDS ORDERED: D5W 100 ML IV ONE (22:39)
[2021-11-14] MEDS ORDERED: AMIODARONE IN DEXTROSE,ISO-OSM 360 MG/200 ML BAG IV ONE (22:39)
[2021-11-14] MEDS ORDERED: AMIODARONE HCL 900 MG in Dextrose 5%-Water 482 ML IV SCH (23:00)
[2021-11-15] MEDS: METOPROLOL TAR 50 MG TAB PO SCH ×3 (00:40→21:30)
[2021-11-15] MEDS: ATORVASTATIN 40 MG TAB PO SCH ×2 (00:40→21:30)
[2021-11-15] MEDS: NA CHLORIDE 0.9% 1,000 ML IV SCH ×2 (03:00→16:20)
[2021-11-15 03:26] LABS: Absolute Lymphocytes (CBC) 0.8 K/uL (0.7-4.9); Hematocrit 38.3 % (36.0-45.0); MPV 7.3 fL (7.6-11.3); RBC Red Blood Cell Count 4.49 M/uL (3.86-4.86)
[2021-11-15 03:46] LABS: Albumin 3.5 g/dL (3.4-5.0); Bilirubin Total 0.7 mg/dL (0.2-1.0); Potassium 3.6 mmol/L (3.5-5.1); Protein, Total 6.4 g/dL (6.4-8.2); Thyroid Stimulating Hormone 0.543 uIU/mL (0.360-3.740)
[2021-11-15 04:08] LABS: Blood Morphology Comment NOT SEEN (NOT SEEN); Platelet Estimate ADEQ
[2021-11-15] MEDS ORDERED: NA CHLORIDE 0.9% 1,000 ML ONE (05:54)
[2021-11-15] MEDS ORDERED: AMIODARONE IN DEXTROSE,ISO-OSM 360 MG/200 ML BAG IV ONE ×2 (05:54→21:42)
[2021-11-15 06:30] LABS: C-Reactive Protein 3.2 mg/L (<3.00)
[2021-11-15 06:40] VITALS: BMI 26.4
--- NOTE | 2021-11-15 06:56 | P.PN ---
Date of Service: 11/15/21 Subjective: feeling better, speech improved heart rate still afib with RVR at times ROS: 10 point ROS as noted above, otherwise negative Physical exam GEN: Alert, oriented, NAD HEENT: Normal conjunctiva, sclera anicteric CV: irregularly irregular rhythm, no edema Pulm: Nonlabored respirations on room air ABD: Soft, nontender, nondistended Integumentary: No rashes Neuro:normal strength, normal affect Problem List aphasia/dysphagia, suspect ischmeic CVA afib with RVR, recent diagnosis seizure disorder HTN fibromyalgia/chronic pain COVID+ speech improved CT negative, MRI ordered for today neurology consulted continue medications - seizure meds, statin, etc cardiology consulted for Afib, started amio drip on 11/14 echo ordered speech to evaluate PT consulted asymptomatic from COVID, patient reported testing positive ~3 week ago VTE: lovenox Code: full Dispo: home, ~1-2 days pending MRI, pending HR improvement Time Spent Managing Pts Care (In Minutes): 35
--- NOTE | 2021-11-15 07:15 | RAD REPORT ---
EXAM DESCRIPTION: US - CP - 11/15/2021 5:17 am CLINICAL HISTORY: poss CVA COMPARISON: Neck Angio dated 11/14/2021 TECHNIQUE: Real-time sonographic evaluation of both carotid systems was performed. Doppler interroga tion was performed with waveform tracing bilaterally. FINDINGS: Normal high resistance waveforms are noted in both external carotid arteries. The common c arotid arteries and internal carotid arteries show normal low resistance waveforms. Soft plaque identified at both carotid bulbs. Peak systolic and end diastolic velocity values and the ICA/CCA ratios are in the non-hemodynamically significant range. Antegrade flow seen in both vertebral arteries. IMPRESSION: Mild soft plaque noted at both carotid bulbs. No evidence of a hemodynamically significant stenosis.
[2021-11-15] MEDS ORDERED: METOPROLOL TARTRATE 5 MG/5 ML INJ IV STA (08:09)
[2021-11-15] MEDS ORDERED: METOPROLOL TARTRATE 5 MG/5 ML INJ IV ONE (08:21)
[2021-11-15] MEDS ORDERED: FOLIC ACID 1 MG TABLET ONE (08:31)
[2021-11-15] MEDS ORDERED: CLOPIDOGREL 75 MG TABLET ONE (08:31)
[2021-11-15] MEDS ORDERED: METOPROLOL TAR 50 MG TAB ONE ×2 (08:31→21:31)
[2021-11-15] MEDS: CLOPIDOGREL 75 MG TABLET PO SCH (08:51)
[2021-11-15] MEDS: FOLIC ACID 1 MG TABLET PO SCH (08:51)
[2021-11-15] MEDS ORDERED: ASPIRIN EC 81 MG TAB PO SCH (09:00)
--- NOTE | 2021-11-15 09:11 | EKG ---
Test Date: 2021-11-14 Test Time: 14:18:45 Store Team Leader: BETHANY MEASUREMENT RESULTS: Intervals: Rate: 143 TN: QRSD: 76 QT: 284 QTc: 438 [place]: P: TN: QRS: -5 T: 160 INTERPRETIVE STATEMENTS: Atrial fibrillation with rapid ventricular response with occasional atrial-paced complexes Voltage criteria for left ventricular hypertrophy Possible Inferior infarct, age undetermined Marked ST abnormality, possible anterolateral subendocardial injury Abnormal ECG Compared to ECG 10/05/1997 13:03:00 Myocardial infarct finding now present ST (T wave) deviation now present Sinus rhythm no longer present Atrial abnormality no longer present Early repolarization no longer present Electronically Signed On 11-15-21 09:08:16 CDT by Miguel Mcdonough
[2021-11-15] MEDS ORDERED: FENTANYL CITR 100 MCG/2 ML ONE ×2 (12:37→21:42)
[2021-11-15] MEDS ORDERED: LOPERAMIDE HCL 2 MG CAPSULE ONE ×3 (12:41→21:37)
[2021-11-15] MEDS: LOPERAMIDE HCL 2 MG CAPSULE PO PRN ×3 (12:43→21:34)
[2021-11-15] MEDS: FENTANYL CITR 100 MCG/2 ML IV PRN ×2 (12:43→21:40)
--- NOTE | 2021-11-15 14:27 | RAD REPORT ---
EXAM DESCRIPTION: MRI - MRA Head Wo Cont - 11/15/2021 1:49 pm CLINICAL HISTORY: CVA, left-sided weakness, confusion COMPARISON: None. TECHNIQUE: Axial and coronal 3D [id number] image acquisition was performed. 3D rotational images were generated with source and reconstruction images reviewed. Horizontal and vertical axis rotation al views generated using MIP protocol. FINDINGS: Left vertebral artery is dominant. Right vertebral artery essentially terminates at the po sterior communicating artery. There is a very small patent vessel extending to the base of the basila r artery. This is normal variant anatomy. No focal basilar finding. Bilateral internal carotid arteries show no significant finding. Anterior cerebral arteries are unrem arkable. No middle cerebral artery significant finding. No stenosis, named branch occlusion or vascul itis findings. Patient has a large posterior communicating artery on the right and small left PCOM. 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 IMPRESSION: No named branch occlusion, vasculitis or other significant vascular finding.
--- NOTE | 2021-11-15 14:39 | RAD REPORT ---
EXAM DESCRIPTION: MRI - Brain W/Wo Cont - 11/15/2021 1:49 pm CLINICAL HISTORY: Aphasia, left sided weakness COMPARISON: MRA Head Wo Cont dated 11/15/2021; MRA Neck W/Wo Cont dated 11/15/2021 TECHNIQUE: Sagittal and axial T1-weighted images were obtained. Axial PD/heavily T2-weighted and T2- FLAIR images were obtained along with axial DWI/ADC mapping sequences. Coronal heavily T2 weighted s equence obtained. Axial and coronal post-contrast T1-weighted images were also obtained. A 13 ml Mul tihance contrast following utilized. FINDINGS: No intracranial hemorrhage, mass or edema identified. Diffusion-weighted imaging shows a p unctate area of hyperintense signal posterior lateral left frontal lobe subcortical in location. Ther e is corresponding diminished signal on ADC mapping. There is a questionable punctate focus of restri cted diffusion in the left insular cortex. Diminished signal on ADC mapping is not confirmed. No othe r diffusion signal abnormality seen. Underlying atrophy changes are present [id number] in degre e. Ventricles are in proportion. Chronic ischemic changes are minimal. Signal voids are seen as a nor mal finding in the major intracranial vessels. Post-contrast images show normal enhancement. No dural thickening. Mastoid air cells and paranasal sinuses are clear. IMPRESSION: Questionable punctate nonhemorrhagic foci of subacute infarction in the lateral posterio r left frontal lobe and left insular cortex. No hemorrhage, mass or edema. These possible foci of infarction are very small and would not likely generate this constellation of symptoms. Patient has mild to moderate atrophy with very minimal chronic ischemic change as a baseline.
--- NOTE | 2021-11-15 14:44 | RAD REPORT ---
EXAM DESCRIPTION: MRI - MRA Neck W/Wo Cont - 11/15/2021 1:49 pm CLINICAL HISTORY: Aphasia, left-sided weakness, confusion COMPARISON: None. TECHNIQUE: Axial and coronal 3D [id number] image acquisition was performed. 3D rotational images were generated with source and reconstruction images reviewed. Horizontal and vertical axis rotation al views generated using MIP protocol. FINDINGS: Aortic arch is 3 vessel configuration with no origins stenoses. There is tortuosity of the great vessels. Bilateral subclavian arteries are unremarkable. Bilateral common carotid and internal carotid arteries show no dissection, stenosis or significant atherosclerotic changes. Left vertebral artery is dominant. No dissection or acute vertebral artery finding. IMPRESSION: MRA neck examination shows no significant or suspicious finding.
[2021-11-15] MEDS ORDERED: ENOXAPARIN 60 MG/0.6 ML SQ ONE (17:21)
[2021-11-15] MEDS: ENOXAPARIN 60 MG/0.6 ML SQ SCH (18:00)
--- NOTE | 2021-11-15 18:30 | CON ---
Date of Consultation: 11/15/2021 Reason For Consultation: CVA in the setting of atrial fibrillation. History Of Present Illness: Ms. Mcfarland is 76, has a history of hypertension, chronic atrial fibril lation for which she was taking Plavix and mainly she is allergic to aspirin. Came in with positive COVID. She came in with aphasia consistent with a stroke, rapid atrial fibrillation. The patient de nied any cardiac symptoms. She denied any chest pain or shortness of breath. No nausea, vomiting, d iaphoresis, PND, orthopnea, or pedal edema. She had some palpitation and denied any syncope. Denied any fever or chills. She was mostly aphasic with expressive aphasia and difficulty swallowing. Rep orts were obtained from her and the family. Past Medical History: As stated above. Allergies: SHE IS ALLERGIC TO ASPIRIN, MORPHINE, AND DEMEROL. Medications: At home include metoprolol, Plavix, and Neurontin. Review of Systems: Negative. Social History: Negative. Family History: Negative. Physical Examination: General: When I saw her, her expressive aphasia had mostly resolved. She was able to swallow. She is still in atrial fibrillation, rate of 120, on IV amiodarone. She was afebrile. Blood pressure wa s adequate. HEENT: Negative. Neck: Supple without any bruit, lymphadenopathy, JVD, or thyromegaly. Chest: Clear. Cardiac: Revealed atrial fibrillation, rapid ventricular response. No murmurs, gallops, or rubs. Abdomen: Benign. Extremities: Revealed no clubbing, cyanosis, or edema. Diagnostic Data: Carotid was negative. CT of her head was negative. CT angiogram of the head and n violet were negative. MRI is pending. Echocardiogram is pending. Impression And Plan: Cerebrovascular accident, status post atrial fibrillation. She needs to have a rate controlled. She needs to eventually be on anticoagulants. Right now, she is on Lovenox, IV am iodarone, metoprolol, Plavix, and Lipitor. I agree with the present regimen. We will see what the M RI shows. We will see what the echocardiogram shows. I think her atrial fibrillation is chronic and may be difficult to convert. She needs to be on rate controlled and I will continue the amiodarone for now. Use p.o. metoprolol. She will eventually have to be on Eliquis or Xarelto. We will see wh at her echocardiogram shows. She was found to be COVID positive without any symptom. We will observ e that. Her kidney function is moderately decreased, we will keep an eye on that. She may have diab etes as well. Eventually, she should have a cardiac workup including a Lexiscan that might be suzan d out as an outpatient. JAROD/RU Voice ID: [id number] Report ID: [id number]
[2021-11-15] MEDS ORDERED: AMIODARONE HCL 900 MG in Dextrose 5%-Water 482 ML IV SCH (21:00)
[2021-11-16] MEDS: NA CHLORIDE 0.9% 1,000 ML IV SCH ×2 (01:00→19:25)
[2021-11-16] MEDS ORDERED: NA CHLORIDE 0.9% 1,000 ML ONE ×2 (01:01→19:26)
[2021-11-16 03:23] LABS: Hematocrit 36.5 % (36.0-45.0); MPV 7.4 fL (7.6-11.3); RBC Red Blood Cell Count 4.26 M/uL (3.86-4.86)
[2021-11-16 03:40] LABS: Bilirubin Total 0.8 mg/dL (0.2-1.0); Potassium 3.8 mmol/L (3.5-5.1); Protein, Total 5.8 g/dL (6.4-8.2)
[2021-11-16] MEDS ORDERED: METOPROLOL TAR 50 MG TAB ONE ×2 (07:38→22:10)
[2021-11-16] MEDS ORDERED: CLOPIDOGREL 75 MG TABLET ONE (07:39)
[2021-11-16] MEDS ORDERED: FOLIC ACID 1 MG TABLET ONE (07:39)
[2021-11-16] MEDS: LOPERAMIDE HCL 2 MG CAPSULE PO PRN (08:27)
[2021-11-16] MEDS ORDERED: LOPERAMIDE HCL 2 MG CAPSULE ONE ×2 (08:29→14:48)
[2021-11-16] MEDS: FOLIC ACID 1 MG TABLET PO SCH (09:00)
[2021-11-16] MEDS: METOPROLOL TAR 50 MG TAB PO SCH ×2 (09:00→21:00)
[2021-11-16] MEDS: CLOPIDOGREL 75 MG TABLET PO SCH (09:00)
[2021-11-16] MEDS ORDERED: AMIODARONE IN DEXTROSE,ISO-OSM 360 MG/200 ML BAG IV ONE ×2 (09:51→19:26)
--- NOTE | 2021-11-16 12:43 | ECHO ---
HEIGHT: 5 ft 1 in WEIGHT: 139 lb 15.897 oz DATE OF STUDY: 11/15/[address]: Alan Hyatt NP 2-DIMENSIONAL: YES M.MODE: YES DOPPLER: YES COLOR FLOW: YES TDS: PORTABLE: YES DEFINITY: BUBBLE STUDY: DIAGNOSIS: ATRIAL FIBRILLATION WITH RAPID VENTRICULAR RESPONSE CARDIAC HISTORY: CATHERIZATION: SURGERY: PROSTHETIC VALVE: PACEMAKER: MEASUREMENTS (cm) DIASTOLIC (NORMALS) SYSTOLIC (NORMALS) IVSd 1.1 (0.6-1.2) LA Diam 4.6 (1.9-4.0) LVEF 65% LVIDd 3.5 (3.5-5.7) LVIDs 2.3 (2.0-3.5) %FS 34% LVPWd 1.1 (0.6-1.2) Ao Diam 2.7 (2.0-3.7) 2 DIMENSIONAL ASSESSMENT: RIGHT ATRIUM: NORMAL LEFT ATRIUM: DILATED RIGHT VENTRICLE: NORMAL LEFT VENTRICLE: NORMAL TRICUSPID VALVE: NORMAL MITRAL VALVE: NORMAL PULMONIC VALVE: NORMAL AORTIC VALVE: NORMAL PERICARDIAL EFFUSION: NONE AORTIC ROOT: NORMAL LEFT VENTRICULAR WALL MOTION: NORMAL DOPPLER/COLOR FLOW: NORMAL COMMENTS: LEFT ATRIAL ENLARGEMENT. ATRIAL FIBRILLATION. NORMAL LEFT VENTRICULAR SYSTOLIC PRESSURE. NO MITRAL VALVE PROLAPSE. NO EFFUSION. TECHNOLOGIST: KARI PARIKH
[2021-11-16] MEDS ORDERED: AMIODARONE HCL 900 MG in Dextrose 5%-Water 482 ML IV SCH ×2 (14:00→18:00)
[2021-11-16] MEDS ORDERED: ONDANSETRON 4 MG/2 ML VIAL IV PRN (14:42)
--- NOTE | 2021-11-16 17:28 | P.PN ---
Date of Service: 11/16/21 Subjective: feeling better, speech back to normal feels fatigued / generalized weakness remains in afib, HR: 110s to 150s with movement ROS: 10 point ROS as noted above, otherwise negative Physical exam GEN: Alert, oriented, NAD HEENT: Normal conjunctiva, sclera anicteric CV: irregularly irregular rhythm, no edema Pulm: Non-labored respirations on room air ABD: Soft, nontender, nondistended Integumentary: No rashes Neuro: normal speech, normal strength, normal affect Problem List Aphasia/dysphagia, suspect ischmeic CVA Afib with RVR, recent diagnosis seizure disorder HTN fibromyalgia/chronic pain COVID+ speech improved CT negative, MRI with small foci, possible cause, however radiologist states appear to small to cause deficits neurology consulted continue medications - seizure meds, statin, etc HR remains elevated, up to 130-160s with minimal movement at times cardiology consulted for Afib, started amio drip on 11/14; increased rate back up to 1 on 11/16 increase metoprolol 50 -> 100mg BID echo ordered PT consulted asymptomatic from COVID, patient reported testing positive ~3 weeks ago VTE: lovenox Code: full Dispo: home, ~1-2 days further improvement on afib Time Spent Managing Pts Care (In Minutes): 35
[2021-11-16] MEDS: ENOXAPARIN 60 MG/0.6 ML SQ SCH (18:00)
[2021-11-16] MEDS ORDERED: ENOXAPARIN 60 MG/0.6 ML SQ ONE (18:10)
[2021-11-16] MEDS: ATORVASTATIN 40 MG TAB PO SCH (21:00)
[2021-11-16] MEDS ORDERED: ATORVASTATIN 20 MG TAB ONE (22:11)
[2021-11-16] MEDS ORDERED: FENTANYL CITR 100 MCG/2 ML ONE (22:18)
[2021-11-16] MEDS: FENTANYL CITR 100 MCG/2 ML IV PRN (22:19)
[2021-11-17] MEDS: LOPERAMIDE HCL 2 MG CAPSULE PO PRN (01:02)
[2021-11-17] MEDS ORDERED: LOPERAMIDE HCL 2 MG CAPSULE ONE (01:05)
[2021-11-17] MEDS ORDERED: AMIODARONE IN DEXTROSE,ISO-OSM 360 MG/200 ML BAG IV ONE (04:49)
--- NOTE | 2021-11-17 06:04 | PN ---
Date of Progress Note: 11/16/2021 Ms. Mcfarland was seen for CVA in the setting of atrial fibrillation. She has had a rather extensive cardiac workup, but remained in atrial fibrillation, rate between 110 and 150, despite IV amiodarone. Her echocardiogram was basically unremarkable except for left atrial enlargement, but otherwise she has a normal ejection fraction without any evidence of thrombus. I believe the best thing to do wit h her is increase her amiodarone rate to 1 mg/minute, increase her metoprolol, and plan for a direct current cardioversion on 11/17/2021. Meanwhile, continue present regimen. JAROD/RU Voice ID: [id number] Report ID: [id number]
[2021-11-17] MEDS ORDERED: AMIODARONE HCL 200 MG TAB ONE (06:33)
[2021-11-17] MEDS ORDERED: AMIODARONE HCL 200 MG TAB PO SCH ×2 (07:00→09:00)
--- NOTE | 2021-11-17 07:52 | EKG ---
Test Date: 2021-11-17 Test Time: 04:57:00 [place]: ANDIE MEASUREMENT RESULTS: Intervals: Rate: 60 NC: 158 QRSD: 84 QT: 494 QTc: 494 [place]: P: 83 NC: 158 QRS: 96 T: -86 INTERPRETIVE STATEMENTS: Normal sinus rhythm Rightward axis Left ventricular hypertrophy with repolarization abnormality Abnormal ECG Compared to ECG 11/14/2021 14:18:45 Right-axis deviation now present Early repolarization now present Atrial fibrillation no longer present Atrial-paced complex(es) or rhythm no longer present ST (T wave) deviation no longer present Myocardial infarct finding still present Electronically Signed On 11-17-21 07:51:44 CDT by Miguel Mcdonough
[2021-11-17 07:59] VITALS: TEMP 98.8
[2021-11-17] MEDS: NA CHLORIDE 0.9% 1,000 ML IV SCH (08:20)
[2021-11-17 08:35] LABS: Absolute Lymphocytes (CBC) 1.1 K/uL (0.7-4.9); Hematocrit 36.5 % (36.0-45.0); Lymphocytes % 10.8 % (15.3-44.8); MPV 7.2 fL (7.6-11.3); RBC Red Blood Cell Count 4.22 M/uL (3.86-4.86)
--- NOTE | 2021-11-17 08:47 | RAD REPORT ---
EXAM DESCRIPTION: RAD - Chest Single View - 11/17/2021 8:30 am CLINICAL HISTORY: hypoxia, afib, eval pulm edema/effusion Chest pain. COMPARISON: Chest Single View dated 11/14/2021 FINDINGS: Portable technique limits examination quality. Mild interstitial pulmonary edema. The heart is upper limit normal in size. No displaced fractures. IMPRESSION: Mild CHF.
[2021-11-17 08:49] LABS: Bilirubin Total 0.8 mg/dL (0.2-1.0); Magnesium 1.9 mg/dL (1.8-2.4); Protein, Total 5.7 g/dL (6.4-8.2)
[2021-11-17] MEDS: CLOPIDOGREL 75 MG TABLET PO SCH (09:00)
[2021-11-17] MEDS: FOLIC ACID 1 MG TABLET PO SCH (09:00)
[2021-11-17] MEDS: METOPROLOL TAR 50 MG TAB PO SCH (09:00)
[2021-11-17] MEDS ORDERED: FOLIC ACID 1 MG TABLET ONE (10:10)
[2021-11-17] MEDS ORDERED: CLOPIDOGREL 75 MG TABLET ONE (10:11)
[2021-11-17] MEDS ORDERED: NA CHLORIDE 0.9% 1,000 ML ONE (10:11)
[2021-11-17 10:18] VITALS: BP 149/84
[2021-11-17] MEDS ORDERED: METOPROLOL TAR 50 MG TAB ONE (10:18)
[2021-11-17 10:26] VITALS: O2SAT 94
--- NOTE | 2021-11-18 21:33 | P.DS ---
Admission Date: 11/14/21 Discharge Date: 11/17/21 Disposition: ROUTINE DISCHARGE Discharge Condition: GOOD Reason for Admission: Aphasia, Afib RVR Consultations: Cardiology - Dr. Mcdonough Neurology - Dr. Fish Procedures: Problem List Aphasia/dysphagia, secondary to ischmeic CVA Afib with RVR, recent diagnosis seizure disorder, chronic HTN fibromyalgia/chronic pain COVID+ Brief History of Present Illness: 76yo F, PMH: TIA/CVA, Afib, HTN, Seizures, fibromyalgia, presented to ED with difficulty with her speech and left-sided weakness. Patient reports she went to bed feeling well but when she woke in the morning around 9 AM she noticed that she was having some difficulty with her speech and questionable left-sided weakness. She arrived to the ER around 1400 and was evaluated her CT head without contrast as well as CT head and neck angiogram were negative for any acute findings her symptoms have significantly improved but she is does still have some mild aphasia/dysphagia, she did fail her swallow screen. Patient also noted to be in A. fib RVR with a rate around 120-130 was given IV Lopressor in the ER discussed case with neurology and cardiology plan to give Lopressor IV for A. fib and Lovenox for anticoagulation as she failed swallow screen admit for further evaluation and management. Hospital Course: Patient was found to be in afib with RVR. She was started on metoprolol and IV amiodarone. Patient's afib remained resistant to treatment and required further uptitration of amiodarone and metoprolol dosage. She eventually converted back to sinus rhythm overnight 11/16-11/17 and remained in sinus rhythm. Cardiology was consulted. Recommended amiodarone 400mg twice daily x 7 days, patient to follow up in 7 days in the office, and will adjust dose at that visit. Prescribed 100mg metoprolol twice daily, eliquis, folic acid and aspirin 81mg. Neurology recommended aspirin instead of plavix given bleed risk. Son and Patient were not sure why aspirin was listed as an allergy in the EMR. Patient was noted to have 2 tiny areas that appear to be subacute infarcts in her brain, one in the area that could affect her speech. Her speech difficulty resolved, and she was ambulating without issue. She reported statin intolerance, after trying several different formulations without luck. Will start patient on Zetia She was deemed stable for discharge home. Follow up with Dr. Mcdonough in 1 week Follow up with Dr. Fish in ~1 month Vital Signs/Physical Exam: Temp Pulse Resp BP Pulse Ox 98.8 F 65 19 149/84 H 97 11/17/21 07:00 11/17/21 09:00 11/17/21 06:00 11/17/21 09:00 11/17/21 06:00 Physical exam GEN: Alert, oriented, NAD HEENT: Normal conjunctiva, sclera anicteric CV: irregularly irregular rhythm, no edema Pulm: Non-labored respirations on room air ABD: Soft, nontender, nondistended Integumentary: No rashes Neuro: normal speech, normal strength, normal affect Laboratory Data at Discharge: WBC 9.7 K/uL (4.3-10.9) 11/17/21 08:20 Hgb 11.9 g/dL (12.0-15.0) L 11/17/21 08:20 Hct 36.5 % (36.0-45.0) 11/17/21 08:20 Plt Count 280 K/uL (152-406) 11/17/21 08:20 PT 11.4 SECONDS (9.5-12.5) 11/14/21 14:19 INR 1.04 11/14/21 14:19 APTT 27.8 SECONDS (24.3-36.9) 11/14/21 14:19 Sodium 141 mmol/L (136-145) 11/17/21 08:20 Potassium 3.0 mmol/L (3.5-5.1) L 11/17/21 08:20 BUN 18 mg/dL (7-18) 11/17/21 08:20 Creatinine 1.23 mg/dL (0.55-1.3) 11/17/21 08:20 Glucose 104 mg/dL (74-106) 11/17/21 08:20 Magnesium 1.9 mg/dL (1.8-2.4) 11/17/21 08:20 Total Bilirubin 0.8 mg/dL (0.2-1.0) 11/17/21 08:20 AST 47 U/L (15-37) H 11/17/21 08:20 ALT 23 U/L (12-78) 11/17/21 08:20 Alkaline Phosphatase 112 U/L (45-117) 11/17/21 08:20 Triglycerides 177 mg/dL (<150) H 11/15/21 03:03 Cholesterol 186 mg/dL (<200) 11/15/21 03:03 HDL Cholesterol 65 mg/dL (40-60) H 11/15/21 03:03 Cholesterol/HDL Ratio 2.86 11/15/21 03:03 Home Medications: Amiodarone HCl [Cordarone*] 400 mg PO BID 10 Days #20 tab 11/17/21 Apixaban [Eliquis] 5 mg PO BID 30 Days #60 tablet 11/17/21 Aspirin [Aspirin EC 81 MG] 81 mg PO DAILY 30 Days #30 tablet. 11/17/21 Ezetimibe 10 mg PO DAILY 30 Days #30 tablet 11/17/21 Folic Acid 1 mg PO DAILY 30 Days #30 tablet 11/17/21 Gabapentin [Neurontin*] 400 mg PO BID 11/17/21 Hydrocodone 5/APAP 325 [[place] 5/325*] 1 tab PO BID PRN 11/17/21 Levetiracetam [Keppra] 750 mg PO TID 11/17/21 Metoprolol Tartrate [Lopressor*] 100 mg PO BID 30 Days #120 tab 11/17/21 New Medications: Aspirin [Aspirin EC 81 MG] 81 mg PO DAILY 30 Days #30 tablet. Amiodarone HCl [Cordarone*] 400 mg PO BID 10 Days #20 tab Apixaban [Eliquis] 5 mg PO BID 30 Days #60 tablet Ezetimibe 10 mg PO DAILY 30 Days #30 tablet Folic Acid 1 mg PO DAILY 30 Days #30 tablet Metoprolol Tartrate [Lopressor*] 100 mg PO BID 30 Days #120 tab Diet: AHA Activity: Ad gato Followup: Miguel Mcdonough MD [ACTIVE - CAN ADMIT] - (Call to schedule appointment) Ace Fish MD [ASSOCIATE-ACTIVE - CAN ADMIT] - (Call to schedule appointment) Time spent managing pt's care (in minutes): 45
[2021-11-19 13:24] LABS: C.diff Antigen/Toxin Ag neg : Tox neg (NEG : NEG)
--- NOTE | 2021-11-20 14:41 | PN ---
Date of Progress Note: 11/17/2021 Ms. Mcfarland was admitted with new onset atrial fibrillation. Normal ejection fraction. Converted t o sinus rhythm. Finally, on amiodarone and metoprolol 100 b.i.d. She was asymptomatic. I will swit ch her to p.o. amiodarone b.i.d., continue metoprolol 100 b.i.d., continue Eliquis, send h er home and I will see her in the office in the next week or 2. If she goes back into atrial fibrill ation, we will perform a direct cardioversion. Case was discussed with Dr. Bautista. JAROD/RU Voice ID: [id number] Report ID: [id number]
== END 2021-11-17 15:15 | disposition home or self-care (01) | DRG 64 ==
LOC: ER 14:10 → ERHOLD 19:14 → 2ND 11-17 09:58
PROVIDERS: ADMIT Hospitalist; ATTEND Hospitalist
DX: I63.9 Cerebral infarction, unspecified (principal); U07.1 COVID-19; R47.01 Aphasia; R13.10 Dysphagia, unspecified; R29.702 NIHSS score 2; I48.91 Unspecified atrial fibrillation; I10 Essential (primary) hypertension; M79.7 Fibromyalgia; G40.909 Epilepsy, unspecified, not intractable, without status epilepticus
CPT/HCPCS: 36415; 70450; 70496; 70498; 70544; 70549; 70553; 71045; 80048; 80053; 80061; 81003; 82947; 83735; 84439; 84443; 85025; 85610; 85730; 86140; 87045; 87046; 87324; 87449; 89055; 92610; 93005; 93306; 93880; 96365; 96366; 96372; 96375; 97112; 97116; 97161; 99285; A9577; J0282; J1650; J2405; J3010; J3490; J7030; J7040; J7060; Q9967; U0003

== ENCOUNTER 2022-01-12 07:21 | Day surgery (SDC) | payer OTHER ==
[2022-01-09 10:00] LABS: Absolute Lymphocytes (CBC) 1.3 K/uL (0.7-4.9); Hematocrit 39.5 % (36.0-45.0); Lymphocytes % 16.1 % (15.3-44.8); MCV 87.2 fL (80-100); MPV 7.4 fL (7.6-11.3); RBC Red Blood Cell Count 4.53 M/uL (3.86-4.86)
[2022-01-09 10:03] LABS: Protime INR 2.36
[2022-01-09 10:43] LABS: Potassium 3.8 mmol/L (3.5-5.1)
--- NOTE | 2022-01-09 12:38 | EKG ---
Test Date: 2022-01-09 Test Time: 09:36:02 [place]: POLLY MEASUREMENT RESULTS: Intervals: Rate: 58 SD: 230 QRSD: 92 QT: 488 QTc: 479 [place]: P: -4 SD: 230 QRS: 84 T: -89 INTERPRETIVE STATEMENTS: Sinus bradycardia with 1st degree AV block Left ventricular hypertrophy with repolarization abnormality Abnormal ECG Compared to ECG 11/17/2021 04:57:00 First degree AV block now present Sinus rhythm no longer present Right-axis deviation no longer present Electronically Signed On 01-09-22 12:38:27 CDT by Jacinto Patton
[~2022-01-12 07:21] MED LIST: MIDAZOLAM HCL 2 MG/2 ML INJ ONE
[2022-01-12] MEDS ORDERED: NA CHLORIDE 0.9% 500 ML ONE (07:29)
[2022-01-12 08:06] VITALS: TEMP 97.6
[2022-01-12] MEDS ORDERED: HEPA 1000U/500MLS 1,000 UNIT/500 ML BAG IV ONE ×2 (08:47→08:48)
[2022-01-12] MEDS ORDERED: MIDAZOLAM HCL 2 MG/2 ML INJ ONE (08:49)
[2022-01-12] MEDS ORDERED: FENTANYL CITR 100 MCG/2 ML ONE (08:49)
[2022-01-12] MEDS ORDERED: ATROPINE SULF 1 MG/10 ML SYR IV ONE (08:50)
--- NOTE | 2022-01-12 10:44 | OP ---
Surgeon: Miguel Mcdonough MD Senior Corporate Accountant: Ms. Shira Thompson. The patient will go home after 2 hours of bedrest and I will see her in the office in 2 weeks. 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 She underwent abdominal ang iogram with run-off. Indication: Peripheral arterial disease on the right side. She was also having some claudication. Procedure In Detail: In the mill labor supervisor, she was prepped and draped in the routine sterile fashion. Gi suzan Versed and fentanyl for sedation. A 6-Moroccan sheath was introduced in the left groin, left commo n femoral artery. Angiography there was normal. Angio-Seal was used to close the case. A pigtail c atheter was advanced above the renals. Abdominal angiogram with runoff revealed normal renals, deyvi l aorta, normal iliacs, normal common femoral artery, and SFA. She had about a 50% to 60% long steno sis in the right popliteal with good distal flow bilaterally below the knees on both sides. There we re no complications. Blood loss was 5 mL. The patient tolerated the procedure well. Total consciou s sedation was 30 minutes. Postoperative Diagnosis: Mild peripheral arterial disease. Plan: Plan is for medical therapy. If we need to intervene with a popliteal down the road, we may h ave to do an antegrade approach in the right common femoral artery. JAROD/RU Voice ID: [id number] Report ID: [id number]
[2022-01-12] MEDS ORDERED: LIDOCAINE 1% MPF 5 ML VIAL ONE (11:18)
[2022-01-12 12:28] VITALS: BP 159/65; O2SAT 97
== END 2022-01-12 12:00 | disposition home or self-care (01) ==
LOC: CCL 07:21
DX: I70.211 Atherosclerosis of native arteries of extremities with intermittent claudication, right leg (principal); I25.10 Atherosclerotic heart disease of native coronary artery without angina pectoris; G62.9 Polyneuropathy, unspecified; I11.0 Hypertensive heart disease with heart failure; I50.22 Chronic systolic (congestive) heart failure; I48.0 Paroxysmal atrial fibrillation; R00.1 Bradycardia, unspecified; I44.0 Atrioventricular block, first degree; I51.7 Cardiomegaly; G40.909 Epilepsy, unspecified, not intractable, without status epilepticus; Z87.891 Personal history of nicotine dependence; Z79.01 Long term (current) use of anticoagulants; Z79.82 Long term (current) use of aspirin; Z79.899 Other long term (current) drug therapy; Z82.49 Family history of ischemic heart disease and other diseases of the circulatory system
CPT/HCPCS: 36200; 36415; 75630; 80048; 85025; 85610; 85730; 93005; C1760; C1893; G0269; J1644; J2250; J3010; J7040

== ENCOUNTER 2024-01-26 15:58 | Inpatient (IN) | payer OTHER ==
[2024-01-26] MEDS ORDERED: FUROSEMIDE 40 MG/4 ML VIAL ONE (16:13)
[2024-01-26 16:42] LABS: Absolute Basophils 0.1 K/uL (0-0.5); Absolute Lymphocytes (CBC) 1.8 K/uL (0.7-4.9); Absolute Monocytes 1.2 K/uL (0.1-1.3); Absolute Neutrophil 7.5 K/uL (1.8-8.0); Basophils % 0.8 % (0-1.3); Eosinophils % 0.3 % (0-4.4); Hematocrit 44.3 % (36.0-45.0); Hemoglobin 14.4 g/dL (12.0-15.0); Lymphocytes % 17.2 % (15.3-44.8); MCH 29.5 pg (27.0-35.0); MCHC 32.5 g/dL (32.0-36.0); MCV 90.5 fL (80-100); MPV 7.7 fL (7.6-11.3); Monocytes % 11.6 % (3.3-12.3); Neutrophils % 70.1 % (41.7-73.7); Nucleated RBC Absolute Count 0.1 (0-0); Nucleated Red Blood Cells % 0.5 % (0-0); Platelets 352 thou/uL (152-406); RBC Red Blood Cell Count 4.89 M/uL (3.86-4.86); Red Cell Distribution Width 17.8 % (12.1-15.2)
[2024-01-26 17:02] LABS: Albumin 3.2 g/dL (3.4-5.0); Anion Gap 11.2 mEq/L (5.0-15.0); Bilirubin Direct 0.4 mg/dL (0-0.2); Bilirubin Indirect, Calculated 0.8 mg/dL (0.2-0.8); Bilirubin Total 1.2 mg/dL (0.2-1.0); Globulin 3.2 g/dL (2.3-3.5); Protein, Total 6.4 g/dL (6.4-8.2); Troponin High Sensitivity 57.4 pg/mL (<58.9)
[2024-01-26 17:03] LABS: Magnesium 2.3 mg/dL (1.6-2.4); Potassium 3.2 mEq/L (3.5-5.1)
--- NOTE | 2024-01-26 17:24 | RAD REPORT ---
EXAM DESCRIPTION: RAD - Chest Single View - 01/26/2024 5:08 pm CLINICAL HISTORY: DYSPNEA Chest pain. COMPARISON: <Comparisons> FINDINGS: Portable technique limits examination quality. Mild pulmonary edema suspected. The heart is moderately enlarged. Small bilateral pleural effusions. No displaced fractures. IMPRESSION: Moderate CHF.
--- NOTE | 2024-01-26 18:36 | EDPHYS ---
Physician Documentation [facility] Name: Cesar Mcfarland Age: 78 yrs Sex: Female : 1945 Arrival Date: 01/26/2024 Time: 15:58 Bed 3 Private MD: ED Physician Stef Adkins HPI: 01/25 19:56 This 78 yrs old Female presents to ER via Wheelchair with complaints of Chest rt Tightness, Breathing Difficulty. 19:56 Patient presents to the ED with chest tightness, difficulty breathing. Patient states rt that she is on Lasix, not been working as well as it had been previously. Denies other acute complaints at this time, symptoms are moderate in severity, no other aggravating or alleviating factors.. Historical: - Allergies: 16:15 Aggrenox; aa5 16:15 Demerol; aa5 16:15 Morphine; aa5 16:15 Tetanus Vaccines and Toxoid; aa5 - PMHx: 16:15 Atrial fibrillation; breast cancer; Hypertensive disorder; Seizure; TIA; aa5 - PSHx: 16:15 Appendectomy; Cholecystectomy; hysterectomy; mastectomy; aa5 - Immunization history:: Adult Immunizations up to date. - Infectious Disease History:: Denies. - Social history:: Smoking status: Patient denies any tobacco usage or history of. - Family history:: not pertinent. ROS: 19:56 Constitutional: Negative for fever, chills, and weight loss, Abdomen/GI: Negative for rt abdominal pain, nausea, vomiting, diarrhea, and constipation, MS/Extremity: Negative for injury and deformity, Skin: Negative for injury, rash, and discoloration, Neuro: Negative for headache, weakness, numbness, tingling, and seizure, 19:56 Cardiovascular: Positive for chest pain, edema, 19:56 Respiratory: Positive for cough, shortness of breath, Exam: 19:56 ECG was reviewed by the Attending Physician. rt 19:56 Constitutional: This is a well developed, well nourished patient who is awake, alert, rt and in no acute distress. Head/Face: Normocephalic, atraumatic. Chest/axilla: Normal chest wall appearance and motion. Nontender with no deformity. No lesions are appreciated. Cardiovascular: Regular rate and rhythm with a normal S1 and S2. No gallops, murmurs, or rubs. Normal PMI, no JVD. No pulse deficits. Abdomen/GI: Soft, non-tender, with normal bowel sounds. No distension or tympany. No guarding or rebound. No evidence of tenderness throughout. Skin: Warm, dry with normal turgor. Normal color with no rashes, no lesions, and no evidence of cellulitis. MS/ Extremity: Pulses equal, no cyanosis. Neurovascular intact. Full, normal range of motion. Neuro: Awake and alert, GCS 15, oriented to person, place, time, and situation. Cranial nerves II-XII grossly intact. Motor strength 5/5 in all extremities. Sensory grossly intact. Cerebellar exam normal. Normal gait. 19:56 Respiratory: Bibasilar crackles, no respiratory distress, 19:56 Musculoskeletal/extremity: 2+ pretibial edema. Vital Signs: 16:04 BP 138 / 88; Pulse 100; Resp 20 S; Temp 97.8(TE); Pulse Ox 100% on R/A; aa5 17:45 BP 159 / 56; Pulse 91; Resp 16; Pulse Ox 97% ; db 18:47 BP 128 / 89; Pulse 91; Resp 20 S; Pulse Ox 95% on R/A; kc6 20:22 BP 162 / 80; Pulse 94; Resp 23; Temp 97.8; Pulse Ox 94% on R/A; Pain 0/10; tm6 20:22 Pain Scale: Adult tm6 MDM: 16:06 Patient medically screened. rt 20:17 Differential diagnosis: ACS, CHF, pneumonia. Data reviewed: vital signs, nurses notes, rt lab test result(s), EKG, radiologic studies. Consideration of Admission/Observation Patient was admitted/placed on observation. Management of patient was discussed with the following: Hospitalist: Agrees to admit. I considered the following discharge prescriptions or medication management in the emergency department Medications were administered in the Emergency Department. See MAR. Independent interpretation of the following test(s) in the Emergency Department X-Ray: My interpretation is Pulmonary edema seen on interpretation of x-ray images. Test considered but Not performed: CT: Low suspicion for pulmonary embolus, CT angiogram not indicated. Care significantly affected by the following chronic conditions: A-fib, hypertension. Counseling: I had a detailed discussion with the patient and/or guardian regarding the historical points, exam findings, and any diagnostic results supporting the discharge/admit diagnosis, lab results, radiology results, the need for further work-up and treatment in the hospital. Response to treatment: the patient's symptoms have mildly improved after treatment. 01/25 16:12 Order name: Basic Metabolic Panel; Complete Time: 17:17 rt 08 16:12 Order name: CBC with Diff; Complete Time: 17:17 rt 01/25 16:12 Order name: LFT's; Complete Time: 17:17 rt 01/25 16:12 Order name: Magnesium; Complete Time: 17:17 rt 01/25 16:12 Order name: NT PRO-BNP; Complete Time: 17:17 rt 01/25 16:12 Order name: Troponin HS; Complete Time: 17:17 rt 01/25 19:03 Order name: Basic Metabolic Panel EDMS 01/25 19:03 Order name: Basic Metabolic Panel EDMS 01/25 19:03 Order name: CBC with Automated Diff EDMS 01/25 19:03 Order name: CBC with Automated Diff EDMS 01/25 19:03 Order name: NT PRO-BNP EDMS 01/25 19:03 Order name: NT PRO-BNP EDMS 01/25 16:12 Order name: XRAY Chest (1 view); Complete Time: 17:31 rt 01/25 16:12 Order name: Cardiac monitoring; Complete Time: 16:21 rt 01/25 16:12 Order name: EKG - Nurse/Tech; Complete Time: 16:21 rt 01/25 16:12 Order name: IV Saline Lock; Complete Time: 16:21 rt 01/25 16:12 Order name: Labs collected and sent; Complete Time: 16:21 rt 01/25 16:12 Order name: O2 Per Protocol; Complete Time: 16:21 rt 01/25 16:12 Order name: O2 Sat Monitoring; Complete Time: 16:21 rt EC:56 Rate is 88 beats/min. Rhythm is irregular, A flutter with No ectopy, Bifascicular rt block. QRS interval is normal. QT interval is prolonged at 561 msec. No Q waves. Administered Medications: 16:21 Drug: Furosemide IVP 40 mg IVP once; give over 2 minutes Route: IVP; Site: right kc6 forearm; Disposition Summary: 01/26/24 18:35 Hospitalization Ordered Notes: Hospitalization Status: Observation rt Provider: Edgard [place] rt Location: Telemetry/[facility] (observation) rt Condition: Stable rt Problem: new rt Symptoms: have improved rt Bed/Room Type: Standard rt Room Assignment: 401(01/26/24 19:12) jb4 Diagnosis - Pulmonary edema rt - Acute kidney injury rt Forms: - Medication Reconciliation Form rt - SBAR form rt - Leadership Thank You Letter rt Signatures: Dispatcher [employer] Yen Sullivan RN RN aa5 Preet Alas RN RN jb4 Tarah Griffith RN RN kc6 Stef Adkins MD MD rt Corrections: (The following items were deleted from the chart) 19:12 18:35 rt jb4
--- NOTE | 2024-01-26 18:36 | ER ---
Nurse's Notes [facility] Name: Cesar Mcfarland Age: 78 yrs Sex: Female : 1945 Arrival Date: 01/26/2024 Time: 15:58 Bed 3 Private MD: Diagnosis: Pulmonary edema;Acute kidney injury Presentation: 01/25 16:04 Chief complaint: Patient states: SOB and chest tightness that began 2 weeks ago. Pt aa5 also reports leg swelling. 16:04 Onset of symptoms was 2023. aa5 16:04 Acuity: KRIS 3 aa5 16:04 Method Of Arrival: Wheelchair aa5 16:04 Coronavirus screen: shortness of breath. Ebola Screen: [facility] denies travel to an [facility] in the 21 days before illness onset. Initial Sepsis Screen: Does the patient meet any 2 criteria? HR > 90 bpm. Does the patient have a suspected source of infection? No. Patient's initial sepsis screen is negative. Risk Assessment: Do you want to hurt yourself or someone else? Patient reports no desire to harm self or others. Historical: - Allergies: 16:15 Aggrenox; aa5 16:15 Demerol; aa5 16:15 Morphine; aa5 16:15 Tetanus Vaccines and Toxoid; aa5 - PMHx: 16:15 Atrial fibrillation; breast cancer; Hypertensive disorder; Seizure; TIA; aa5 - PSHx: 16:15 Appendectomy; Cholecystectomy; hysterectomy; mastectomy; aa5 - Immunization history:: Adult Immunizations up to date. - Infectious Disease History:: Denies. - Social history:: Smoking status: Patient denies any tobacco usage or history of. - Family history:: not pertinent. Screenin:22 [facility] ED Fall Risk Assessment (Adult) History of falling in the last 3 months, kc6 including since admission No falls in past 3 months (0 pts) Confusion or Disorientation No (0 pts) Intoxicated or Sedated No (0 pts) Impaired Gait No (0 pts) Mobility Assist Device Used No (0 pt) Altered Elimination No (0 pt) Score/Fall Risk Level 0 - 2 = Low Risk. Abuse screen: Denies threats or abuse. Denies injuries from another. Nutritional screening: No deficits noted. Tuberculosis screening: No symptoms or risk factors identified. Assessment: 16:22 General: Appears in no apparent distress. comfortable, well groomed, well developed, kc6 Behavior is calm, cooperative, appropriate for age. Pain: Complains of pain in chest Pain does not radiate. Pain began gradually, Is continuous. Neuro: Level of Consciousness is awake, alert, obeys commands, Oriented to person, place, time, situation, Appropriate for age. Cardiovascular: Reports chest pain, Heart tones S1 S2 present Capillary refill < 3 seconds Rhythm is atrial fibrillation. Respiratory: Reports shortness of breath on exertion Airway is patent Trachea midline Respiratory effort is even, unlabored, Respiratory pattern is regular, symmetrical, Breath sounds with crackles bilaterally. Onset: The symptoms/episode began/occurred 2 weeks ago. GI: No signs and/or symptoms were reported involving the gastrointestinal system. : No signs and/or symptoms were reported regarding the genitourinary system. EENT: No signs and/or symptoms were reported regarding the EENT system. Derm: No signs and/or symptoms reported regarding the dermatologic system. Skin is intact, is healthy with good turgor, Skin is pink, warm \T\ dry. Musculoskeletal: Circulation, motion, and sensation intact. Capillary refill < 3 seconds, Range of motion: intact in all extremities, Swelling present in right leg and left leg. 17:22 Reassessment: Patient appears in no apparent distress at this time. No changes from kc6 previously documented assessment. Patient and/or family updated on plan of care and expected duration. Pain level reassessed. Patient is alert, oriented x 3, equal unlabored respirations, skin warm/dry/pink. 18:03 Reassessment: PT ASSISTED TO BEDSIDE COMMODE. db 18:03 Reassessment: Patient appears in no apparent distress at this time. Patient and/or db family updated on plan of care and expected duration. Pain level reassessed. Patient is alert, oriented x 3, equal unlabored respirations, skin warm/dry/pink. Patient states feeling better. 19:24 Reassessment: report faxed to 4th, confirmed by Efren. General: Appears in no apparent tm6 distress. Behavior is calm, cooperative. 20:22 Reassessment: Patient appears in no apparent distress at this time. Patient and/or tm6 family updated on plan of care and expected duration. Pain level reassessed. Patient is alert, oriented x 3, equal unlabored respirations, skin warm/dry/pink. Vital Signs: 16:04 BP 138 / 88; Pulse 100; Resp 20 S; Temp 97.8(TE); Pulse Ox 100% on R/A; aa5 17:45 BP 159 / 56; Pulse 91; Resp 16; Pulse Ox 97% ; db 18:47 BP 128 / 89; Pulse 91; Resp 20 S; Pulse Ox 95% on R/A; kc6 20:22 BP 162 / 80; Pulse 94; Resp 23; Temp 97.8; Pulse Ox 94% on R/A; Pain 0/10; tm6 20:22 Pain Scale: Adult tm6 ED Course: 16:01 Patient arrived in ED. ra3 16:04 Stef Adkins MD is Attending Physician. rt 16:04 Arm band placed on. aa5 16:16 Triage completed. aa5 16:21 Tarah Griffith, YARITZA is Primary Nurse. kc6 16:21 EKG done, by ED staff, reviewed by Stef Adkins MD. Inserted saline lock: 20 gauge kc6 in right forearm, using aseptic technique. Blood collected. Flushed with 10 mL NS. 16:22 Patient has correct armband on for positive identification. Placed in gown. Bed in low kc6 position. Call light in reach. Side rails up X2. Adult w/ patient. manager monitoring on. Pulse ox on. NIBP on. Warm blanket given. Pillow given. 17:10 XRAY Chest (1 view) In Process Unspecified. EDMS 18:35 Edgard Beach MD is Hospitalizing Provider. rt 20:22 No provider procedures requiring assistance completed. Patient admitted, IV remains in tm6 place. Patient maintains SpO2 saturation greater than 95% on room air. 20:23 Provided Education on: need for admit. tm6 Administered Medications: 16:21 Drug: Furosemide IVP 40 mg IVP once; give over 2 minutes Route: IVP; Site: right kc6 forearm; Medication: 20:23 VIS not applicable for this client. tm6 Outcome: 18:35 Decision to Hospitalize by Provider. rt 20:22 Admitted to Med/surg accompanied by tech, room 401, with chart, tm6 20:22 Condition: stable 20:22 Instructed on the need for admit, Demonstrated understanding of instructions, 20:23 Patient left the ED. tm6 Signatures: Dispatcher [employer] EDMS Yen Oreilly, RN RN aa5 Tarah Griffith RN RN kc6 Marisa Adorno RN RN db Stef Adkins MD MD rt Masterson, Tawney, RN RN tm6 Milena Garcia 3
--- NOTE | 2024-01-26 20:12 | P.HP ---
Certification for Inpatient Patient admitted to: Observation With expected LOS: <2 Midnights Practitioner: I am a practitioner with admitting privileges, knowledge of patient current condition, hospital course, and medical plan of care. Services: Services provided to patient in accordance with Admission requirements found in Title 42 Section 412.3 of the Code of Federal Regulations Patient History Date of Service: 01/26/24 Reason for admission: Shortness of breath congestive heart failure History of Present Illness: Patient is 78 years of age with a history of congestive heart failure was on vacation for the past 3 weeks started complaining of worsening dyspnea and lower extremity edema she also has chronic renal disease and a primary care is Dr. Egan and slab worker Dr. Patton apparently she had seen Dr. Patton and her Lasix was increased to 60 mg a day continue to get worse admitted from the emergency room denies any other complaints Allergies aspirin [From Aggrenox] Allergy (Verified 11/15/21 00:36) Hives/Rash dipyridamole [From Aggrenox] Allergy (Verified 11/15/21 00:36) Hives/Rash meperidine [From Demerol] Allergy (Verified 11/15/21 00:36) Hives/Rash morphine Allergy (Verified 11/15/21 00:36) Hives/Rash Home Medications: Amiodarone HCl [Cordarone*] 400 mg PO BID 10 Days #20 tab 11/17/21 Apixaban [Eliquis] 5 mg PO BID 30 Days #60 tablet 11/17/21 Aspirin [Aspirin EC 81 MG] 81 mg PO DAILY 30 Days #30 tablet. 11/17/21 Ezetimibe 10 mg PO DAILY 30 Days #30 tablet 11/17/21 Folic Acid 1 mg PO DAILY 30 Days #30 tablet 11/17/21 Gabapentin [Neurontin*] 400 mg PO BID 11/17/21 Hydrocodone 5/APAP 325 [[place] 5/325*] 1 tab PO BID PRN 11/17/21 Levetiracetam [Keppra] 750 mg PO TID 11/17/21 Metoprolol Tartrate [Lopressor*] 100 mg PO BID 30 Days #120 tab 11/17/21 - Past Medical/Surgical History -: TIA/CVA -: Afib -: HTN -: Sz -: Fibromyalgia/chronic pain -: History of breast cancer treated in 2002 -: Madiha/Appy/hysterectomy -: hernia repair Psychosocial/ Personal History: Pt lives at home, alone. - Family History Father -: Heart disease, Stroke Mother -: Heart disease, Stroke - Social History Alcohol use: No CD- Drugs: No Caffeine use: Yes Review of Systems 10-point ROS is otherwise unremarkable General: Weakness Respiratory: Shortness of Breath Cardiovascular: Edema Physical Examination - Vital Signs Temperature: 97.8 F Blood Pressure: 128/89 Pulse: 95 Respirations: 20 Pulse Ox (%): 100 - Physical Exam General: Alert, Oriented x3 Neck: Supple Respiratory: Clear to auscultation bilaterally Cardiovascular: Regular rate/rhythm, Normal S1 S2, Edema (Plus edema) Gastrointestinal: Normal bowel sounds, Soft and benign Musculoskeletal: No clubbing, Swelling Integumentary: No rashes, No breakdown Neurological: Normal speech, Normal strength at 5/5 x4 extr - Studies Laboratory Data (last 24 hrs) 01/26/24 01/26/24 16:20 16:20 WBC 10.70 Hgb 14.4 Hct 44.3 Plt Count 352 Sodium 140 Potassium 3.2 L BUN 56 H Creatinine 2.46 H Glucose 68 L Magnesium 2.3 Total Bilirubin 1.2 H AST 47 H ALT 23 Alkaline Phosphatase 99 Assessment and Plan - Problems (Diagnosis) (1) Congestive heart failure (CHF) Current Visit: Yes Status: Acute Plan: Patient is 78 years of age admitted with 3-week history of increasing dyspnea shortness of breath lower extremity edema patient has chronic renal disease her creatinine is also significantly elevated is now up to 2.46 patient has mild hypokalemia BNP is over 25,000 chest x-ray also reviewed may have a right-sided pleural effusion plan to admit the patient aggressive diuresis prior echo in 2001 shows normal left ventricular function I suspect she may have underlying diastolic heart failure admit for IV Lasix patient has a history of A-fib resume normal home medication labs chest x-rays all reviewed serum replacement Qualifiers: Heart failure type: diastolic Heart failure chronicity: acute on chronic Qualified Code(s): I50.33 - Acute on chronic diastolic (congestive) heart failure - Advance Directives Does patient have a Living Will: No Does patient have a Durable POA for Healthcare: No
[2024-01-26 20:38] VITALS: BMI 24.5
[2024-01-26] MEDS: FUROSEMIDE 20 MG/ 2ML VIAL IV SCH (20:43)
[2024-01-26] MEDS: POTASSIUM 25 MEQ EFFERV TAB PO SCH (20:43)
[2024-01-26] MEDS: APIXABAN 5 MG TABLET PO SCH (21:00)
[2024-01-26] MEDS: METOPROLOL TAR 50 MG TAB PO SCH (21:00)
[2024-01-27 05:47] LABS: Absolute Basophils 0.1 K/uL (0-0.5); Absolute Lymphocytes (CBC) 1.5 K/uL (0.7-4.9); Absolute Monocytes 0.7 K/uL (0.1-1.3); Absolute Neutrophil 7.4 K/uL (1.8-8.0); Basophils % 0.6 % (0-1.3); Eosinophils % 0.4 % (0-4.4); Hematocrit 44.2 % (36.0-45.0); Hemoglobin 14.3 g/dL (12.0-15.0); Lymphocytes % 15.1 % (15.3-44.8); MCH 29.6 pg (27.0-35.0); MCHC 32.4 g/dL (32.0-36.0); MCV 91.3 fL (80-100); MPV 8.2 fL (7.6-11.3); Monocytes % 7.7 % (3.3-12.3); Neutrophils % 76.2 % (41.7-73.7); Nucleated Red Blood Cells % 0.2 % (0-0); Platelets 306 thou/uL (152-406); RBC Red Blood Cell Count 4.84 M/uL (3.86-4.86); Red Cell Distribution Width 17.5 % (12.1-15.2)
[2024-01-27 06:01] LABS: Anion Gap 5.5 mEq/L (5.0-15.0); Potassium 4.5 mEq/L (3.5-5.1)
--- NOTE | 2024-01-27 06:48 | P.PN ---
Date of Service: 01/27/24 Subjective: feels like breathing is easier since arrival to floor has been dealing with some lower extremity edema, dyspnea, chest discomfort for ~2 weeks reports decreased UOP that started after lower extremity edema; improving since arrival to ED but still feels less than normal compliant with home meds, lasix recently increased found to be in a-fib on arrival to ED. HR currently 90-100s ROS: 10 point ROS as noted above, otherwise negative Physical Exam: GEN: Alert, oriented, NAD HEENT: Normal conjunctiva, sclera anicteric CV: irregularly irregular rate and rhythm, 1-2+ bilateral lower extremity edema Pulm: labored respirations with conversation on room air, diminished with crackles at bases ABD: Soft, nontender, nondistended vitals reviewed Problem List: Acute on chronic CHF (HFpEF) paroxysmal a-fib on anticoagulation ALESIA bilateral thyroid nodules Hypertension seizure disorder, chronic Fibromyalgia/chronic pain hx breast cancer s/p mastectomy hx CVA/TIA hx R PAD Acute on chronic CHF on admission presented with worsening dyspnea, lower extremity edema, chest discomfort for ~2 weeks +some decreased UOP that started after lower extremity edema. [place] she wasn't urinating as much as she normally does after taking her diuretics Reports compliance with her home meds. Recently had his lasix increased to 60mg/day and continued to worsen CXR (01/25): moderate CHF Troponin negative, monitor on telemetry Last echo in 2021 was normal. repeat echo ordered to reeval EF / stenosis BNP 25k; improving continue IV lasix 40 mg TID Cardiology consulted PRN nebs paroxysmal a-fib on anticoagulation found to be in a-fib in ED on admission. resume home eliquis, amiodarone, metoprolol monitor on telemetry. HR 90-100s currently can further exacerbate her CHF cardiology consulted ALESIA suspect cardiorenal Creatinine 2.46 on admission continue to monitor renal function unknown baseline. ~1.2 in 2021 continue lasix bilateral thyroid nodules thyroid u/s (01/10): TI-RADS 5 (high suspicious) nodule in the right thyroid lobe measuring 1 cm. Several other smaller thyroid nodules noted bilaterally. check thyroid studies f/u outpatient Hypertension seizure disorder, chronic Fibromyalgia/chronic pain hx breast cancer s/p mastectomy hx CVA/TIA confirm home meds, restart as appropriate VTE: home eliquis Dispo: ~48hrs, pending improvement, cardio recs, renal fxn Time Spent Managing Pts Care (In Minutes):46
[2024-01-27 07:29] LABS: Thyroid Stimulating Hormone 1.64 uIU/mL (0.358-3.740)
[2024-01-27] MEDS: METOPROLOL TAR 50 MG TAB PO SCH (08:39)
[2024-01-27] MEDS: APIXABAN 2.5 MG TABLET PO SCH (08:39)
[2024-01-27] MEDS: EZETIMIBE 10 MG TAB PO SCH (08:40)
[2024-01-27] MEDS: AMIODARONE HCL 200 MG TAB PO SCH (08:40)
--- NOTE | 2024-01-27 16:46 | CON ---
Date of Consultation: 01/27/2024 Reason For Consultation: Congestive heart failure and AFib. History Of Present Illness: 78-year-old female, history of diastolic heart failure and atrial fibril lation, came in with the worsening shortness of breath, lower extremity edema. No orthopnea. No luz st pain, and she was significantly fluid overloaded. Apparently, she was on a vacation recently and ate a lot of restaurant food and she came in fluid overloaded. Past Medical History: As outlined above in the HPI. Congestive heart failure. Atrial fibrillation and dyslipidemia. Medications: Refer to reconciliation sheet for detailed list. Allergies: ASPIRIN, MEPERIDINE, AND MORPHINE. Family History: No premature coronary artery disease or cancer. Social History: She does not smoke or drink. Does not use any drugs. Review of Systems: All systems were reviewed and they were negative except as mentioned in the HPI. Physical Examination: Vital Signs: Reviewed. Head and Neck: Pupils are equal, reactive to light. Intact eye movements. No JVD. No cervical lym phadenopathy. Neck is supple. Thyroid is not enlarged. Lungs: Clear to auscultation bilaterally. No accessory muscle use or muscle retraction. Heart: Irregularly irregular. No extra sounds. Abdomen: Soft, nontender. Bowel sounds positive. No organomegaly. No masses or hernia. No rigidi ty or rebound. Extremities: No edema, clubbing, or cyanosis. Intact pulses. Skin: No rash. No nodule. Neurologic: Alert, awake, oriented x3. No acute focal deficits appreciated. Investigations: BUN is 51, creatinine 2.45. NT-proBNP in 25,000 range and her hemoglobin is 14.3. Assessment And Recommendations: 1.Acute on chronic diastolic heart failure exacerbation. Diuresing well with Lasix. She is feeling much better. Continue current management. Monitor BUN, creatinine, and electrolytes very closely. 2.Atrial fibrillation. Definitely atrial fibrillation can exacerbate her congestive heart failure a nd she has been on amiodarone for a long time apparently. I recommend COLLINS cardioversion to be done a nd continue Lopressor as well and Eliquis. 3.Acute on chronic renal failure. This is likely due to elevated central venous pressure and it is improving slowly with Lasix. Carefully monitor BUN, creatinine, and electrolytes. 4.Hypertension. Blood pressure is controlled. SR/MODL Voice ID: [id number] Report ID: [id number]
[2024-01-27] MEDS: GABAPENTIN 100 MG CAP PO SCH (20:08)
[2024-01-28] MEDS: ACETAMINOPHEN 500 MG TAB PO PRN (00:08)
[2024-01-28 06:45] LABS: Absolute Eosinophils 0.1 K/uL (0-0.5); Absolute Lymphocytes (CBC) 1.2 K/uL (0.7-4.9); Absolute Monocytes 0.8 K/uL (0.1-1.3); Absolute Neutrophil 6.4 K/uL (1.8-8.0); Basophils % 0.6 % (0-1.3); Eosinophils % 1.2 % (0-4.4); Hematocrit 42.1 % (36.0-45.0); Hemoglobin 13.9 g/dL (12.0-15.0); Lymphocytes % 14.4 % (15.3-44.8); MCH 29.8 pg (27.0-35.0); MCHC 33.1 g/dL (32.0-36.0); MCV 89.9 fL (80-100); MPV 7.7 fL (7.6-11.3); Monocytes % 9.5 % (3.3-12.3); Neutrophils % 74.3 % (41.7-73.7); Nucleated Red Blood Cells % 0.2 % (0-0); Platelets 323 thou/uL (152-406); RBC Red Blood Cell Count 4.68 M/uL (3.86-4.86); Red Cell Distribution Width 17.4 % (12.1-15.2)
[2024-01-28 07:10] LABS: Albumin 2.9 g/dL (3.4-5.0); Anion Gap 1.6 mEq/L (5.0-15.0); Bilirubin Total 1.1 mg/dL (0.2-1.0); Magnesium 1.9 mg/dL (1.6-2.4); Potassium 3.6 mEq/L (3.5-5.1); Protein, Total 5.9 g/dL (6.4-8.2)
--- NOTE | 2024-01-28 12:00 | P.PN ---
Date of Service: 01/28/24 Subjective: improving, but still quite dyspneic edema slightly improved feels overnight started to urinate more no new/worse symptoms ROS: 10 point ROS as noted above, otherwise negative Physical Exam: GEN: Alert, oriented, NAD HEENT: Normal conjunctiva, sclera anicteric CV: irregularly irregular rate and rhythm, 1-2+ bilateral lower extremity edema Pulm: mildly labored respirations on room air, diminished with crackles at bases ABD: Soft, nontender, nondistended vitals reviewed Problem List: Acute on chronic CHF (HFpEF) paroxysmal a-fib on anticoagulation ALESIA bilateral thyroid nodules Hypertension seizure disorder, chronic Fibromyalgia/chronic pain hx breast cancer s/p mastectomy hx CVA/TIA hx R PAD Acute on chronic CHF on admission presented with worsening dyspnea, lower extremity edema, chest discomfort for ~2 weeks +some decreased UOP that started after lower extremity edema. [place] she wasn't urinating as much as she normally does after taking her diuretics Reports compliance with her home meds. Recently had her lasix increased to 60mg/day and continued to worsen CXR (01/25): moderate CHF Troponin negative, monitor on telemetry Last echo in 2021 was normal. repeat echo done 01/26; pending read BNP improving continue IV lasix 40 mg TID Cardiology consulted PRN nebs slightly improved afib contributing; cardiology recommending COLLINS cardioversion - planned for tomorrow if still in afib paroxysmal a-fib on anticoagulation found to be in a-fib in ED on admission. home eliquis, amiodarone, metoprolol monitor on telemetry. rate controlled in 80s can further exacerbate her CHF cardiology consulted recommended COLLINS cardioversion ALESIA suspect cardiorenal Creatinine 2.46 on admission ; improving continue to monitor renal function continue IV lasix bilateral thyroid nodules thyroid u/s (01/10): TI-RADS 5 (high suspicious) nodule in the right thyroid lobe measuring 1 cm. Several other smaller thyroid nodules noted bilaterally. TSH normal; Free t4 borderline elevated f/u outpatient Hypertension seizure disorder, chronic Fibromyalgia/chronic pain hx breast cancer s/p mastectomy hx CVA/TIA confirm home meds, restart as appropriate VTE: home eliquis Dispo: ~24-48hrs, pending improvement, COLLINS cardioversion Time Spent Managing Pts Care (In Minutes): 37
--- NOTE | 2024-01-28 14:42 | ECHO ---
HEIGHT: 4 ft 11 in WEIGHT: 121 lb 12.8 oz DATE OF STUDY: 01/28/[address]: Aristides Bautista MD 2-DIMENSIONAL: YES M.MODE: YES DOPPLER: YES COLOR FLOW: YES TDS: PORTABLE: YES DEFINITY: BUBBLE STUDY: DIAGNOSIS: EVALUATE EJECTION FRACTION/ STENOSIS CARDIAC HISTORY: CATHERIZATION: SURGERY: PROSTHETIC VALVE: PACEMAKER: MEASUREMENTS (cm) DIASTOLIC (NORMALS) SYSTOLIC (NORMALS) IVSd 1.1 (0.6-1.2) LA Diam 4.4 (1.9-4.0) LVEF 50-55% LVIDd 3.3 (3.5-5.7) LVIDs 2.4 (2.0-3.5) %FS 27% LVPWd 1.3 (0.6-1.2) Ao Diam 2.3 (2.0-3.7) 2 DIMENSIONAL ASSESSMENT: RIGHT ATRIUM: ENLARGED LEFT ATRIUM: ENLARGED RIGHT VENTRICLE: NORMAL LEFT VENTRICLE: NORMAL TRICUSPID VALVE: MODERATE TRICUSPID REGURGITATION MITRAL VALVE: MILD MITRAL REGURGITATION PULMONIC VALVE: MILD PULMONIC INSUFFICIENCY AORTIC VALVE: MILD AORTIC INSUFFICIENCY PERICARDIAL EFFUSION: NONE AORTIC ROOT: NORMAL LEFT VENTRICULAR WALL MOTION: NORMAL (ATRIAL FIBRILLATION) DOPPLER/COLOR FLOW: SEE BELOW COMMENTS: 1. NORMAL LEFT VENTRICULAR EJECTION FRACTION 50-55% WITH ATRIAL FIBRILLATION 2. LEFT ATRIAL ENLARGEMENT 3. SEVERE PULMONARY HYPERTENSION WITH RIGHT VENTRICULAR SYSTOLIC PRESSURE GREATER THAN 70 mmHg 4. RIGHT ATRIAL ENLARGEMENT 5. MODERATE TRICUSPID REGURGITATION 6. MILD MITRAL REGURGITATION/ AORTIC INSUFFICIENCY TECHNOLOGIST: MACK CLAUDIO
--- NOTE | 2024-01-28 16:59 | EKG ---
Test Date: 2024-01-27 Test Time: 12:26:56 [employer]monia [employer] Worker: RAEGAN MEASUREMENT RESULTS: Intervals: Rate: 93 [place]: QRSD: 140 QT: 454 QTc: 564 [place]: P: [place]: QRS: 106 T: -37 INTERPRETIVE STATEMENTS: Atrial fibrillation Right bundle branch block T wave abnormality, consider inferolateral ischemia or digitalis effect Abnormal ECG Compared to ECG 01/26/2024 16:14:40 Atrial flutter no longer present Right ventricular hypertrophy no longer present Left posterior fascicular block no longer present Bifascicular block no longer present Myocardial infarct finding no longer present T-wave abnormality still present Possible ischemia still present Electronically Signed On 01-28-24 16:57:12 CDT by Jacinto Patton
--- NOTE | 2024-01-28 17:03 | EKG ---
Test Date: 2024-01-26 Test Time: 16:14:40 Grinder And Plater: BETHANY MEASUREMENT RESULTS: Intervals: Rate: 88 [place]: QRSD: 148 QT: 464 QTc: 561 [place]: P: [place]: QRS: 118 T: -32 INTERPRETIVE STATEMENTS: Atrial flutter with variable AV block Right bundle branch block, plus right ventricular hypertrophy Left posterior fascicular block Bifascicular block Cannot rule out Inferior infarct, age undetermined T wave abnormality, consider lateral ischemia Abnormal ECG Compared to ECG 03/23/2023 14:48:55 Right bundle-branch block now present Right ventricular hypertrophy now present Left posterior fascicular block now present Bifascicular block now present Myocardial infarct finding now present Electronically Signed On 01-28-24 16:58:20 CDT by Jacinto Patton
[2024-01-28] MEDS: ALBUTEROL 2.5 MG/3 ML NEB SOL NEB PRN (22:25)
[2024-01-29 06:52] LABS: Potassium 3.9 mEq/L (3.5-5.1)
[2024-01-29 06:54] LABS: Anion Gap 4.9 mEq/L (5.0-15.0)
[2024-01-29 06:55] LABS: Magnesium 1.8 mg/dL (1.6-2.4)
[2024-01-29] MEDS: NA CHLORIDE 0.9% 500 ML ONE (06:56)
[2024-01-29] MEDS ORDERED: ATROPINE SULF 1 MG/10 ML SYR IV ONE (07:09)
[2024-01-29] MEDS ORDERED: LIDOCAINE 1% MPF 5 ML VIAL ONE ×2 (07:33→07:36)
[2024-01-29] MEDS ORDERED: propofoL 200 MG/20 ML VIAL IV ONE (07:36)
[2024-01-29] MEDS ORDERED: Phenylephrine HCl 10 MG/ML 1 ML VIAL ONE (08:00)
[2024-01-29] MEDS ORDERED: EPHEDRINE SULF 50 MG/ML VIAL ONE (08:05)
--- NOTE | 2024-01-29 16:33 | P.PN ---
Subjective Date of Service: 01/29/24 Chief Complaint: Shortness of breath congestive heart failure Patient denies any complaint. She denies any shortness of breath or chest pain. Per report, COLLINS was unsuccessful because the scope could not traverse through her pharynx. Patient is tolerating diet. Physical Examination - Vital Signs Temperature: 97.7 F Blood Pressure: 126/68 Pulse: 90 Respirations: 19 Pulse Ox (%): 94 Assessment And Plan - Plan Physical Exam: GEN: Alert, oriented, NAD HEENT: Normal conjunctiva, sclera anicteric CV: irregularly irregular rate and rhythm, bilateral lower extremity edema Pulm: Nonlabored breathing, mild bibasilar crackles. ABD: Soft, nontender, nondistended vitals reviewed Problem List: Acute on chronic CHF (HFpEF) paroxysmal a-fib on anticoagulation ALESIA bilateral thyroid nodules Hypertension seizure disorder, chronic Fibromyalgia/chronic pain hx breast cancer s/p mastectomy hx CVA/TIA hx R PAD Acute on chronic diastolic CHF Patient reports compliance with her home meds including Lasix which was recently increased to 60 mg daily. CXR (01/25): moderate CHF Troponin negative, monitor on telemetry Echocardiogram shows normal EF, moderate transpelvic regurgitation and severe pulmonary hypertension. continue IV lasix 40 mg TID Cardiology is following PRN nebs Respiratory status significantly improved. paroxysmal a-fib on anticoagulation found to be in a-fib in ED on admission. Continue home eliquis, amiodarone, metoprolol Unsuccessful COLLINS. Further management per cardiology ALESIA suspect cardiorenal Creatinine 2.46 on admission. Serum creatinine is improving continue to monitor renal function continue IV lasix bilateral thyroid nodules thyroid u/s (01/10): TI-RADS 5 (high suspicious) nodule in the right thyroid lobe measuring 1 cm. Several other smaller thyroid nodules noted bilaterally. TSH normal; Free t4 borderline elevated Outpatient follow-up Hypertension seizure disorder, chronic Fibromyalgia/chronic pain hx breast cancer s/p mastectomy hx CVA/TIA Continue home medications. VTE: home eliquis Dispo: Home.
--- NOTE | 2024-01-29 22:32 | OP ---
Date of Procedure: 01/29/2024 Surgeon: Darian Sullivan Procedure Performed: Transesophageal echocardiogram with cardioversion. Indication For Procedure: Atrial fibrillation. Complications: None. Estimated Blood Loss: None. Sedation: Done by Anesthesia team. Description Of Procedure: After risks, benefits, and alternatives were explained to the patient, the patient agreed to proceed with the procedure. The patient was brought back to the OR. Time-out was performed. Sedation was administered by Anesthesia team. Multiple attempts were tried to insert th e COLLINS probe, but there was a lot of difficulty inserting the COLLINS probe. After 4 or 5 attempts, [place] Scope was attempted by the anesthesia team, but still unable to intubate the patient, so decided to a bort the procedure and the patient was moved back to recovery in stable condition. Assessment And Plan: Failed COLLINS probe insertion due to tight oropharynx and unable to push the probe inside the esophagus. The plan will be to continue medical management for atrial fibrillation. KALYAN Voice ID: [id number] Report ID: [id number]
[2024-01-30 06:35] LABS: Absolute Basophils 0.1 K/uL (0-0.5); Absolute Eosinophils 0.1 K/uL (0-0.5); Absolute Lymphocytes (CBC) 1.1 K/uL (0.7-4.9); Absolute Monocytes 0.7 K/uL (0.1-1.3); Absolute Neutrophil 7.4 K/uL (1.8-8.0); Basophils % 0.7 % (0-1.3); Eosinophils % 0.9 % (0-4.4); Hematocrit 41.2 % (36.0-45.0); Hemoglobin 13.4 g/dL (12.0-15.0); Lymphocytes % 12.1 % (15.3-44.8); MCH 29.6 pg (27.0-35.0); MCHC 32.5 g/dL (32.0-36.0); MCV 91.2 fL (80-100); MPV 8.1 fL (7.6-11.3); Monocytes % 7.6 % (3.3-12.3); Neutrophils % 78.7 % (41.7-73.7); Nucleated Red Blood Cells % 0.1 % (0-0); Platelets 280 thou/uL (152-406); RBC Red Blood Cell Count 4.51 M/uL (3.86-4.86); Red Cell Distribution Width 17.2 % (12.1-15.2)
[2024-01-30 06:55] LABS: Anion Gap 7.1 mEq/L (5.0-15.0); Potassium 4.1 mEq/L (3.5-5.1)
--- NOTE | 2024-01-30 09:52 | RAD REPORT ---
EXAM DESCRIPTION: RAD - Chest Single View - 01/30/2024 9:43 am CLINICAL HISTORY: Follow up CHF Chest pain. COMPARISON: Chest Single View dated 01/26/2024; Chest Single View dated 03/23/2023; Chest Single View d ated 11/17/2021; Chest Single View dated 11/14/2021 FINDINGS: Portable technique limits examination quality. Opacity in the right lung base associated with small right pleural effusion shows no real change sinc e prior study. Mild interstitial prominence suggesting mild interstitial pulmonary edema persists. Sm all left pleural effusion. The heart is moderately enlarged. No displaced fractures. IMPRESSION: No real change in the appearance of the chest since 01/26/2024 prior study.
--- NOTE | 2024-01-30 10:53 | P.DS ---
Admission Date: 01/27/24 Discharge Date: 01/30/24 Disposition: ROUTINE DISCHARGE Discharge Condition: FAIR Reason for Admission: Shortness of breath congestive heart failure Brief History of Present Illness: Patient is 78 years of age with a history of congestive heart failure and atrial fibrillation presented to the emergency department with a complaint of worsening dyspnea and lower extremity swelling of 3 weeks duration which did not respond to her usual dose Lasix. Patient recently saw Dr. Patton and her Lasix was increased to 60 mg a day but she continued to get worse and therefore presented to the emergency department. Patient was evaluated in the emergency department and noted to have acute CHF. She was hospitalized for further management. Hospital Course: Patient was admitted to the medical floor and the following medical problems addressed: Diagnosis Acute on chronic diastolic CHF (HFpEF) paroxysmal a-fib on anticoagulation ALESIA bilateral thyroid nodules Hypertension seizure disorder, chronic Fibromyalgia/chronic pain hx breast cancer s/p mastectomy hx CVA/TIA hx R PAD Acute on chronic diastolic CHF Patient reports compliance with her home meds including Lasix which was recently increased to 60 mg daily. CXR (01/25): moderate CHF Troponin negative, monitor on telemetry Echocardiogram showed normal EF, moderate tricuspid regurgitation and severe pulmonary hypertension. Patient was treated with IV Lasix Cardiology evaluated patient and assisted with management PRN nebs Respiratory status significantly improved. Her oxygen saturation was stable on room air. paroxysmal a-fib on anticoagulation found to be in a-fib in ED on admission. Continued home eliquis, amiodarone, metoprolol Unsuccessful COLLINS due to small throat aperture. Cardiology recommended to continue medical management. ALESIA suspect cardiorenal Creatinine 2.46 on admission. Serum creatinine improved to 1.7 on Lasix therapy bilateral thyroid nodules thyroid u/s (01/10): TI-RADS 5 (high suspicious) nodule in the right thyroid lobe measuring 1 cm. Several other smaller thyroid nodules noted bilaterally. TSH normal; Free t4 borderline elevated Outpatient follow-up Hypertension seizure disorder, chronic Fibromyalgia/chronic pain hx breast cancer s/p mastectomy hx CVA/TIA Continued home medications. Vital Signs/Physical Exam: Temp Pulse Resp BP Pulse Ox 97.2 F 101 H 19 129/75 96 01/30/24 08:00 01/30/24 10:32 01/30/24 08:00 01/30/24 10:32 01/30/24 08:00 General: Alert, In no apparent distress, Oriented x3 HEENT: Mucous membr. moist/pink Neck: JVD not distended Respiratory: Clear to auscultation bilaterally, Normal air movement Cardiovascular: No edema, Normal S1 S2, Irregular heart rate/rhythm Gastrointestinal: Normal bowel sounds, Soft and benign, Non-distended, No tenderness Musculoskeletal: No swelling Integumentary: No rashes, No cyanosis Neurological: Normal strength at 5/5 x4 extr Laboratory Data at Discharge: WBC 9.40 thou/uL (4.3-10.9) 01/30/24 06:19 Hgb 13.4 g/dL (12.0-15.0) 01/30/24 06:19 Hct 41.2 % (36.0-45.0) 01/30/24 06:19 Plt Count 280 thou/uL (152-406) 01/30/24 06:19 Sodium 140 mEq/L (136-145) 01/30/24 06:19 Potassium 4.1 mEq/L (3.5-5.1) 01/30/24 06:19 BUN 52 mg/dL (7-18) H 01/30/24 06:19 Creatinine 1.71 mg/dL (0.55-1.02) H 01/30/24 06:19 Glucose 97 mg/dL (74-106) 01/30/24 06:19 Magnesium 1.8 mg/dL (1.6-2.4) 01/29/24 06:06 Total Bilirubin 1.1 mg/dL (0.2-1.0) H 01/28/24 06:12 AST 38 U/L (15-37) H 01/28/24 06:12 ALT 23 U/L (13-56) 01/28/24 06:12 Alkaline Phosphatase 79 U/L (45-117) 01/28/24 06:12 Home Medications: Ezetimibe 10 mg PO DAILY 30 Days #30 tablet 11/17/21 Amiodarone HCl [Cordarone*] 200 mg PO DAILY 01/26/24 Apixaban [Eliquis *] 2.5 mg PO BID 01/26/24 Gabapentin [Neurontin*] 100 mg PO BEDTIME 01/26/24 Metoprolol Tartrate [Lopressor*] 50 mg PO BID 01/26/24 cloNIDine [Clonidine] 1 each TD EVERY 7TH DAY 01/26/24 Tramadol HCl [Ultram] 50 mg PO DAILYPRN PRN 01/28/24 Furosemide [Lasix] 40 mg PO DAILY #37 tab 01/30/24 New Medications: Furosemide [Lasix] 40 mg PO DAILY #37 tab Physician Discharge Instructions: You have thyroid nodules that need to be followed with scans as outpatient. You will need to follow-up with your PCP for referral to an rail tractor operator for further evaluation of thyroid gland. Diet: AHA Activity: Fall precautions Followup: Jacinto Patton MD [ACTIVE - CAN ADMIT] - 1-2 Weeks (follow up ) Jess Barr MD [Primary Care Provider] - 1-2 Weeks (follow up ) Physician Review: Patient Assessed, Agree with Above Assessment and Plan Time spent managing pt's care (in minutes): 38
[2024-01-30 11:25] VITALS: O2SAT 96
[2024-01-30 12:55] VITALS: BP 121/71; TEMP 98.1
[2024-02-01] MEDS ORDERED: CLONIDINE 0.1 MG/PATCH TD SCH (09:00)
== END 2024-01-30 14:30 | disposition home or self-care (01) | DRG 291 ==
LOC: ER 15:58 → 4TH 18:58 → OBSVTOIN 01-27 11:09
PROVIDERS: ADMIT Internal Medicine Sleep Medicine; ATTEND Internal Medicine
DX: I11.0 Hypertensive heart disease with heart failure (principal); I50.33 Acute on chronic diastolic (congestive) heart failure; N17.9 Acute kidney failure, unspecified; I48.0 Paroxysmal atrial fibrillation; E04.1 Nontoxic single thyroid nodule; M79.7 Fibromyalgia; I27.20 Pulmonary hypertension, unspecified; E87.6 Hypokalemia; I07.1 Rheumatic tricuspid insufficiency; G89.29 Other chronic pain; G40.909 Epilepsy, unspecified, not intractable, without status epilepticus; Z60.2 Problems related to living alone; Z88.6 Allergy status to analgesic agent; Z88.5 Allergy status to narcotic agent; Z88.7 Allergy status to serum and vaccine; Z85.3 Personal history of malignant neoplasm of breast; Z79.82 Long term (current) use of aspirin; Z88.8 Allergy status to other drugs, medicaments and biological substances; Z79.01 Long term (current) use of anticoagulants; Z90.10 Acquired absence of unspecified breast and nipple; Z90.49 Acquired absence of other specified parts of digestive tract; Z86.73 Personal history of transient ischemic attack (TIA), and cerebral infarction without residual deficits; Z79.899 Other long term (current) drug therapy; Z90.710 Acquired absence of both cervix and uterus
CPT/HCPCS: 36415; 71045; 80048; 80053; 80076; 83735; 83880; 84439; 84443; 84484; 85025; 93005; 93306; 94640; 96374; 99285; G0378; J0461; J1940; J2001; J2371; J2704; J7040; J7613

== ENCOUNTER 2024-02-03 15:00 | Inpatient (IN) | payer OTHER ==
--- NOTE | 2024-02-03 15:42 | RAD REPORT ---
EXAM DESCRIPTION: RAD - Chest Single View - 02/03/2024 3:33 pm CLINICAL HISTORY: DYSPNEA COMPARISON: Chest Single View dated 01/30/2024; Chest Single View dated 01/26/2024; Chest Single View da [place] 03/23/2023; Chest Single View dated 11/17/2021; Abdomen Pelvis W/Wo Contrast dated 10/16/2023 FINDINGS: Lines: None. Lungs: Some mild interstitial prominence. Pleural: Similar blunting of the right costophrenic angle. Cardiac: Similar size and configuration . Mediastinum: Within normal limits. Bones: No acute fractures. Other: Surgical clips in the epigastrium. IMPRESSION: Aeration of the lung similar to 01/30/2024 with small right pleural effusion and possibl y mild pulmonary edema.
[2024-02-03 16:05] LABS: Absolute Basophils 0.1 K/uL (0-0.5); Absolute Eosinophils 0.1 K/uL (0-0.5); Absolute Lymphocytes (CBC) 1.1 K/uL (0.7-4.9); Absolute Monocytes 0.6 K/uL (0.1-1.3); Absolute Neutrophil 5.1 K/uL (1.8-8.0); Basophils % 0.9 % (0-1.3); Eosinophils % 1.4 % (0-4.4); Hematocrit 38.1 % (36.0-45.0); Hemoglobin 12.4 g/dL (12.0-15.0); Lymphocytes % 15.8 % (15.3-44.8); MCH 29.6 pg (27.0-35.0); MCHC 32.7 g/dL (32.0-36.0); MCV 90.5 fL (80-100); MPV 7.7 fL (7.6-11.3); Monocytes % 8.9 % (3.3-12.3); Nucleated Red Blood Cells % 0.6 % (0-0); Platelets 263 thou/uL (152-406); RBC Red Blood Cell Count 4.21 M/uL (3.86-4.86)
[2024-02-03 16:27] LABS: Anion Gap 5.1 mEq/L (5.0-15.0); Potassium 4.1 mEq/L (3.5-5.1)
[2024-02-03 16:43] LABS: Troponin High Sensitivity 59.2 pg/mL (<58.9)
[2024-02-03] MEDS ORDERED: FUROSEMIDE 40 MG/4 ML VIAL ONE (16:59)
--- NOTE | 2024-02-03 17:03 | ER ---
Nurse's Notes [facility] Name: Cesar Mcfarland Age: 78 yrs Sex: Female : 1945 Arrival Date: 02/03/2024 Time: 15:00 Bed 6 Private MD: Diagnosis: Acute pulmonary edema;Dyspnea, unspecified Presentation: 02/02 15:19 Chief complaint: Patient states: Shortness of breath for weeks, was discharge from this [address] , states she never really felt any better. States phil leg swelling has gotten worse since she was discharge . Coronavirus screen: Vaccine status: Patient reports receiving the 2nd dose of the covid vaccine. Ebola Screen: Patient denies travel to an Ebola-affected area in the 21 days before illness onset. Initial Sepsis Screen: Does the patient meet any 2 criteria? HR > 90 bpm. No. Patient's initial sepsis screen is negative. Does the patient have a suspected source of infection? No. Patient's initial sepsis screen is negative. Risk Assessment: Do you want to hurt yourself or someone else? Patient reports no desire to harm self or others. Onset of symptoms was December 2023. 15:19 Method Of Arrival: Wheelchair [facility] 15:19 Acuity: KRIS 3 [facility] Historical: - Allergies: 15:20 Aggrenox; [facility] 15:20 Demerol; [facility] 15:20 Morphine; [facility] 15:20 Tetanus Vaccines and Toxoid; [facility] - PMHx: 15:20 Atrial fibrillation; breast cancer; Hypertensive disorder; Seizure; TIA; [facility] - PSHx: 15:20 Appendectomy; Cholecystectomy; hysterectomy; mastectomy; [facility] - Immunization history:: Client reports receiving the 2nd dose of the Covid vaccine. - Infectious Disease History:: Denies. - Social history:: Smoking status: Patient denies any tobacco usage or history of. - Family history:: not pertinent. - Hospitalizations: : No recent hospitalization is reported. Screenin:58 [facility] ED Fall Risk Assessment (Adult) History of falling in the last 3 months, ko1 including since admission No falls in past 3 months (0 pts) Confusion or Disorientation No (0 pts) Intoxicated or Sedated No (0 pts) Impaired Gait No (0 pts) Mobility Assist Device Used No (0 pt) Altered Elimination No (0 pt) Score/Fall Risk Level 0 - 2 = Low Risk Oriented to surroundings, Maintained a safe environment, Educated pt \T\ family on fall prevention, incl call for assistance when getting out of bed, Assessed \T\ reinforced patient's understanding of fall precautions, Provided non-skid footwear, Hourly rounding (assess needs \T\ fall precautionary measures) done. Abuse screen: Denies threats or abuse. Denies injuries from another. Nutritional screening: No deficits noted. Tuberculosis screening: No symptoms or risk factors identified. Assessment: 15:58 General: Appears in no apparent distress. uncomfortable, Behavior is calm, cooperative, ko1 appropriate for age. Pain: Denies pain. Neuro: No deficits noted. Cardiovascular: Rhythm is atrial fibrillation. Respiratory: Airway is patent Respiratory effort is even, unlabored, Breath sounds are clear bilaterally. GI: No deficits noted. : No signs and/or symptoms were reported regarding the genitourinary system. EENT: No deficits noted. Derm: No deficits noted. Musculoskeletal: Swelling present in bilateral lower ext. 17:31 Reassessment: Report faxed to second floor. ph Vital Signs: 15:19 BP 132 / 89; Pulse 101; Resp 18; Temp 97.5(O); Pulse Ox 97% on R/A; Weight 59.87 kg; nj1 Height 4 ft. 11 in. ; 16:20 BP 122 / 87; Pulse 87; Resp 18; Pulse Ox 95% on R/A; ph 17:23 BP 135 / 98; Pulse 90; Resp 18; Pulse Ox 95% on R/A; ph 15:19 Body Mass Index 26.66 (59.87 kg, 149.86 cm) nj1 Vitals: 16:20 Cardiac Rhythm Assessment Atrial fibrillation. ph ED Course: 15:02 Patient arrived in ED. mr 15:04 Lacho Bautista MD is Attending Physician. rn 15:20 Triage completed. nj1 15:21 Arm band placed on. nj1 15:25 Missed attempt(s): 20 gauge in right wrist. Bleeding controlled, band aid applied, ph catheter tip intact. 15:35 XRAY Chest (1 view) In Process Unspecified. EDMS 15:58 Patient has correct armband on for positive identification. Allergy band placed. Placed ko1 in gown. Bed in low position. Call light in reach. Side rails up X2. Provided Education on: call light. Client placed on continuous cardiac and pulse oximetry monitoring. NIBP monitoring applied. equipment monitor phototypesetting on. Door closed. Noise minimized. Lights dimmed. Warm blanket given. Pillow given. 15:58 No provider procedures requiring assistance completed. Initial lab(s) drawn, by , reshma sent to lab. EKG done, by ED staff, reviewed by Lacho Bautista MD. Inserted saline lock: 22 gauge in right forearm, using aseptic technique. Blood collected. Flushed with 10 mL NS. 16:20 Donna Eckert, RN is Primary Nurse. ph 17:01 Ksenia Cazares MD is Hospitalizing Provider. rn Administered Medications: 17:23 Drug: Furosemide IVP 40 mg IVP once; give over 2 minutes Route: IVP; Site: right ph forearm; 17:24 Follow up: Response: No adverse reaction ph Medication: 15:58 VIS not applicable for this client. ko1 Outcome: 17:02 Decision to Hospitalize by Provider. rn 18:02 Patient left the ED. ph Signatures: Dispatcher [employer] EDME Marina Romero, Reg Reg mr Lacho Bautista MD MD rn Hall, Patricia, RN RN ph Amita Frank RN RN ko1 Twila Márquez RN RN nj1
--- NOTE | 2024-02-03 17:03 | EDPHYS ---
Physician Documentation [facility] Name: Cesar Mcfarland Age: 78 yrs Sex: Female : 1945 Arrival Date: 02/03/2024 Time: 15:00 Bed 6 Private MD: ED Physician Lacho Bautista HPI: 02/02 15:44 This 78 yrs old Female presents to ER via Wheelchair with complaints of Shortness Of rn Breath, Feet Swelling, Leg swelling. 15:44 The patient has shortness of breath at rest, with light activity. Onset: The rn symptoms/episode began/occurred 1 week(s) ago. Duration: The symptoms are continuous. The patient's shortness of breath is aggravated by exertion, light activity, supine position. Associated signs and symptoms: Pertinent negatives: chest pain, fever, hemoptysis. Severity of symptoms: At their worst the symptoms were moderate in the emergency department the symptoms are unchanged. The patient has experienced similar episodes in the past. Patient reports recently discharged from hospital for volume overload, does not feel like a lot of fluid was taken off. Has doubled her Lasix since going home 3 days ago. Still reports dyspnea on exertion and orthopnea. Is sleeping up bright on a couch. No fever or chills. Son reports increased fullness to the face and more swelling of the legs.. Historical: - Allergies: 15:20 Aggrenox; nj1 15:20 Demerol; nj1 15:20 Morphine; nj1 15:20 Tetanus Vaccines and Toxoid; nj1 - PMHx: 15:20 Atrial fibrillation; breast cancer; Hypertensive disorder; Seizure; TIA; nj1 - PSHx: 15:20 Appendectomy; Cholecystectomy; hysterectomy; mastectomy; nj1 - Immunization history:: Client reports receiving the 2nd dose of the Covid vaccine. - Infectious Disease History:: Denies. - Social history:: Smoking status: Patient denies any tobacco usage or history of. - Family history:: not pertinent. - Hospitalizations: : No recent hospitalization is reported. ROS: 15:44 Constitutional: Negative for fever, chills, and weight loss, Cardiovascular: Positive rn for bilateral lower extremity edema Respiratory: Positive for shortness of breath Abdomen/GI: Negative for abdominal pain, nausea, vomiting, diarrhea, and constipation, MS/Extremity: Positive for swelling to bilateral lower extremities Skin: Negative for injury, rash, and discoloration, Neuro: Negative for headache, weakness, numbness, tingling, and seizure, Exam: 15:44 Constitutional: This is a well developed, well nourished patient who is awake, alert, rn and in no acute distress. Cardiovascular: Tachycardic, irregular. Respiratory: Mild tachypnea, diminished at bases Abdomen/GI: Soft, non-tender MS/ Extremity: 2+ pitting edema bilateral lower extremities up to knees 16:20 ECG was reviewed by the Attending Physician. rn Vital Signs: 15:19 BP 132 / 89; Pulse 101; Resp 18; Temp 97.5(O); Pulse Ox 97% on R/A; Weight 59.87 kg; nj1 Height 4 ft. 11 in. ; 16:20 BP 122 / 87; Pulse 87; Resp 18; Pulse Ox 95% on R/A; ph 17:23 BP 135 / 98; Pulse 90; Resp 18; Pulse Ox 95% on R/A; ph 15:19 Body Mass Index 26.66 (59.87 kg, 149.86 cm) [facility] MDM: 15:04 Patient medically screened. rn 17:00 Differential diagnosis: Anemia CHF exacerbation, Pneumothorax pulmonary edema. Data rn reviewed: vital signs, nurses notes, lab test result(s), EKG, radiologic studies, plain films, and as a result, I will admit patient. Consideration of Admission/Observation Patient was admitted/placed on observation. Escalation of care including admission/observation considered. Independent interpretation of the following test(s) in the Emergency Department EKG: See my EKG interpretation above X-Ray: My interpretation is Chest x-ray images show pulmonary edema per my interpretation. Counseling: I had a detailed discussion with the patient and/or guardian regarding the historical points, exam findings, and any diagnostic results supporting the discharge/admit diagnosis, lab results, radiology results, the need for further work-up and treatment in the hospital. 02/02 15:05 Order name: Basic Metabolic Panel; Complete Time: 16:45 rn 02/02 15:05 Order name: CBC with Diff; Complete Time: 16:45 rn 02/02 15:05 Order name: NT PRO-BNP; Complete Time: 16:45 rn 02/02 15:05 Order name: Troponin HS; Complete Time: 16:45 rn 02/02 15:05 Order name: XRAY Chest (1 view); Complete Time: 15:44 rn 02/02 15:05 Order name: EKG; Complete Time: 15: rn 02/02 15:05 Order name: Cardiac monitoring; Complete Time: 15:25 rn 02/02 15:05 Order name: EKG - Nurse/Tech; Complete Time: 15:25 rn 02/02 15:05 Order name: IV Saline Lock; Complete Time: 16:20 rn 02/02 15:05 Order name: Labs collected and sent; Complete Time: 16: rn 02/02 15:05 Order name: O2 Per Protocol; Complete Time: 15: rn 02/02 15:05 Order name: O2 Sat Monitoring; Complete Time: 15: rn EC: Rate is 91 beats/min. Rhythm is irregularly irregular. QRS interval is normal. QT rn interval is normal. No Q waves. T waves are Normal. No ST changes noted. Clinical impression: Atrial Fibrillation. Interpreted by me. Administered Medications: 17:23 Drug: Furosemide IVP 40 mg IVP once; give over 2 minutes Route: IVP; Site: right ph forearm; 17:24 Follow up: Response: No adverse reaction ph Disposition Summary: 02/03/24 17:02 Hospitalization Ordered Notes: Hospitalization Status: Inpatient Admission rn Provider: Ksenia Cazares rn [facility] rn Condition: Stable rn Problem: an ongoing problem rn Symptoms: are unchanged rn Bed/Room Type: Standard rn Room Assignment: 205(02/03/24 17:23) eb Diagnosis - Acute pulmonary edema rn - Dyspnea, unspecified rn Forms: - Medication Reconciliation Form rn - SBAR form rn - Leadership Thank You Letter rn Signatures: Dispatcher [employer] EDNY Lacho Bautista MD MD rn Hall, Patricia, RN RN Tess Alexander Norma RN RN nj1 Corrections: (The following items were deleted from the chart) 15:06 15:05 Chest Single View+RAD.RAD.BRZ ordered. EDNY EDNY 17:23 17:02 rn eb
--- NOTE | 2024-02-03 17:13 | P.HP ---
Certification for Inpatient Patient admitted to: Inpatient With expected LOS: <2 Midnights <Jeana Ramirez - Last Filed: 02/03/24 17:35> Patient History Date of Service: 02/03/24 Reason for admission: Acute on chronic heart failure History of Present Illness: Patient is 78 years of age with a history of CKD, congestive heart failure presents to the emergency room with shortness of breath. She reports recently discharged with the same symptoms diagnosis. She reports failed cardioversion with Dr. Patton. Complaining of worsening dyspnea and lower extremity edema that started after being discharged. She reports orthopnea, shortness of breath with exertion, nontender chest pain. She denies fever, cough, dizziness, diarrhea. She sees primary care is Dr. Egan and document processing specialist Dr. Patton appar ently she had seen Dr. Patton. She reports medication compliance, plan to admit for NSTEMI, acute on chronic heart failure, pulmonary edema. Hypoxia, with cardiology to consult. - Past Medical/Surgical History Diabetic: No -: TIA/CVA -: Afib -: HTN -: Sz-hypoglycemia -: Fibromyalgia/chronic pain -: History of breast cancer treated in 2002 -: Madiha/Appy/hysterectomy -: hernia repair -: mastectomy with implants and removal Psychosocial/ Personal History: Pt lives at home, alone. - Family History Father -: Heart disease, Stroke Mother -: Heart disease, Stroke - Social History Alcohol use: No CD- Drugs: No Caffeine use: Yes <Jeana Ramirez - Last Filed: 02/03/24 17:35> Date of Service: 02/03/24 <Ksenia Cazares - Last Filed: 02/04/24 03:24> Allergies aspirin [From Aggrenox] Allergy (Verified 11/15/21 00:36) Hives/Rash dipyridamole [From Aggrenox] Allergy (Verified 11/15/21 00:36) Hives/Rash meperidine [From Demerol] Allergy (Verified 11/15/21 00:36) Hives/Rash morphine Allergy (Verified 11/15/21 00:36) Hives/Rash Home Medications: Ezetimibe 10 mg PO DAILY 30 Days #30 tablet 11/17/21 Amiodarone HCl [Cordarone*] 200 mg PO DAILY 01/26/24 Apixaban [Eliquis *] 2.5 mg PO BID 01/26/24 Gabapentin [Neurontin*] 100 mg PO BEDTIME 01/26/24 Metoprolol Tartrate [Lopressor*] 50 mg PO BID 01/26/24 cloNIDine [Clonidine] 1 each TD EVERY 7TH DAY 01/26/24 Tramadol HCl [Ultram] 50 mg PO DAILYPRN PRN 01/28/24 Furosemide [Lasix] 40 mg PO DAILY #37 tab 01/30/24 Review of Systems Per HPI <Jeana Ramirez - Last Filed: 02/03/24 17:35> Physical Examination - Physical Exam General: Alert, In no apparent distress, Mild distress HEENT: Atraumatic, Normocephalic Respiratory: Normal air movement, Crackles/rales Cardiovascular: Normal pulses, Regular rate/rhythm, Edema (+1 lower extremity edema) Gastrointestinal: Normal bowel sounds, Soft and benign Musculoskeletal: No swelling, No contractures Integumentary: No breakdown, No significant lesion Neurological: Normal speech, Normal strength at 5/5 x4 extr - Studies Laboratory Data (last 24 hrs) 02/03/24 02/03/24 15:55 15:55 WBC 7.00 Hgb 12.4 Hct 38.1 Plt Count 263 Sodium 137 Potassium 4.1 BUN 53 H Creatinine 1.84 H Glucose 99 <Jeana Ramirez - Last Filed: 02/03/24 17:35> - Studies Laboratory Data (last 24 hrs) 02/03/24 02/03/24 15:55 15:55 WBC 7.00 Hgb 12.4 Hct 38.1 Plt Count 263 Sodium 137 Potassium 4.1 BUN 53 H Creatinine 1.84 H Glucose 99 <Ksenia Cazares - Last Filed: 02/04/24 03:24> Assessment and Plan - Plan Assessment and Plan - Problems (Diagnosis) Congestive heart failure (CHF) NSTEMI Pulmonary edema Acute hypoxic respiratory failure secondary to decompensated heart failure paroxysmal a-fib on anticoagulation Current Visit: Yes Status: Acute Plan: BNP 71369, troponin 59.2 Chest x-ray IMPRESSION: Aeration of the lung similar to 01/30/2024 with small right pleural effusion and possibly mild pulmonary edema. O2 2 L keep sats greater than 94% EKG 91 beats/min. Rhythm is irregularly irregular. QRS interval is normal. QT interval is normal. No Q waves. T waves are Normal. No ST changes noted. Clinical impression: Atrial Fibrillation CKD unknown baseline Acute kidney injury likely secondary to prerenal Nephrology to consult, to adjust diuretic Trend kidney function, bilateral thyroid nodules thyroid u/s (01/10): TI-RADS 5 (high suspicious) nodule in the right thyroid lobe measuring 1 cm. Several other smaller thyroid nodules noted bilaterally. check thyroid studies f/u outpatient Hypertension seizure disorder, chronic Fibromyalgia/chronic pain hx breast cancer s/p mastectomy hx CVA/TIA confirm home meds, restart as appropriate Full code DVT home eliquis Diet cardiac Disposition Home independent prior - Advance Directives Does patient have a Living Will: No Does patient have a Durable POA for Healthcare: No Discharge Plan: Home - Advance Directives Does patient have a Living Will: No Does patient have a Durable POA for Healthcare: No - Code Status/Comfort Care Code Status: Full Code Critical Care: No Time Spent Managing Pts Care (In Minutes): 55 <Jeana Ramirez - Last Filed: 02/03/24 17:35> Date of Service: 02/03/24 Patient was seen and examined. Events of the last 24 hours have been noted. Spoke with with BALWINDER regarding patient's clinical picture after evaluating and examining the patient independently. I performed a substantial part of the MDM during this patient's care today. I personally made or approved the documented management plan and acknowledge its risk of complications. I agree with the findings and documentation provided in the BALWINDER's notes. Patient admitted with acute CHF exacerbation. Patient has had extensive cardiac workup recently. Patient with concern for noncompliance with her fluid intake. Continue with diuresing. Cardiology consultation. Patient will be admitted for inpatient hospitalization and we will continue with diuresing patient at this time. <Ksenia Cazares - Last Filed: 02/04/24 03:24>
[2024-02-03] MEDS: FUROSEMIDE 40 MG/4 ML VIAL IV ONE (17:18)
[2024-02-03 18:21] VITALS: BMI 26.6
[2024-02-03] MEDS: GABAPENTIN 100 MG CAP PO SCH (20:12)
[2024-02-03] MEDS: APIXABAN 2.5 MG TABLET PO SCH (20:12)
[2024-02-03] MEDS: METOPROLOL TAR 50 MG TAB PO SCH (20:12)
[2024-02-04] MEDS: MORPHINE 2 MG/ML SYR IV PRN (03:38)
[2024-02-04] MEDS: HYDROCODONE/APAP 5/325 MG TAB PO PRN (06:23)
[2024-02-04 06:45] LABS: Albumin 3.1 g/dL (3.4-5.0); Anion Gap 8.7 mEq/L (5.0-15.0); Bilirubin Total 1.1 mg/dL (0.2-1.0); Globulin 3.2 g/dL (2.3-3.5); Magnesium 2.3 mg/dL (1.6-2.4); Potassium 4.7 mEq/L (3.5-5.1); Protein, Total 6.3 g/dL (6.4-8.2); Troponin High Sensitivity 58.5 pg/mL (<58.9)
--- NOTE | 2024-02-04 08:02 | P.PN ---
Subjective Date of Service: 02/04/24 Chief Complaint: Acute on chronic heart failure Subjective: No C/O voiced, Improving <PonceMagdanoe Lee - Last Filed: 02/04/24 07:57> Date of Service: 02/04/24 <Adeola Hurt C - Last Filed: 02/04/24 11:01> Review of Systems 10-point ROS is otherwise unremarkable General: Other (states her fibromyalgia is better s/p [place]) Cardiovascular: Other (denies pain, palpitations) <Nighat Ponce - Last Filed: 02/04/24 07:57> Physical Examination - Vital Signs Temperature: 97.3 F Blood Pressure: 130/57 Pulse: 67 Respirations: 16 Pulse Ox (%): 99 - Physical Exam General: Alert, Oriented x3, Cachectic HEENT: Atraumatic, Normocephalic Neck: Supple Respiratory: Crackles/rales (bilat bases) Cardiovascular: No edema, Irregular heart rate/rhythm Capillary refill: <2 Seconds Gastrointestinal: Normal bowel sounds Musculoskeletal: Kyphosis Integumentary: Other (flushed) Neurological: Normal speech, Normal tone, Normal affect Lymphatics: No axilla or inguinal lymphadenopathy External genitalia: Deferred Rectal: Deferred - Studies Laboratory Data (last 24 hrs) 02/03/24 02/03/24 15:55 15:55 WBC 7.00 Hgb 12.4 Hct 38.1 Plt Count 263 Sodium 137 Potassium 4.1 BUN 53 H Creatinine 1.84 H Glucose 99 <RosarioNighatnoe Lee - Last Filed: 02/04/24 07:57> - Studies Laboratory Data (last 24 hrs) 02/03/24 02/03/24 15:55 15:55 WBC 7.00 Hgb 12.4 Hct 38.1 Plt Count 263 Sodium 137 Potassium 4.1 BUN 53 H Creatinine 1.84 H Glucose 99 <Adeola Hurt - Last Filed: 02/04/24 11:01> Assessment And Plan - Plan Congestive heart failure (CHF) NSTEMI Pulmonary edema Acute hypoxic respiratory failure secondary to decompensated heart failure paroxysmal a-fib on anticoagulation Current Visit: Yes Status: Acute Plan: BNP 65781, troponin 59.2 Chest x-ray IMPRESSION: Aeration of the lung similar to 01/30/2024 with small right pleural effusion and possibly mild pulmonary edema. O2 2 L keep sats greater than 94% (02/04/24 crackles to bilateral bases), Kyphosis EKG 91 beats/min. Rhythm is irregularly irregular. QRS interval is normal. QT interval is normal. No Q waves. T waves are Normal. No ST changes noted. Cli nical impression: Atrial Fibrillation ECHO: COMMENTS: 1. NORMAL LEFT VENTRICULAR EJECTION FRACTION 50-55% WITH ATRIAL FIBRILLATION 2. LEFT ATRIAL ENLARGEMENT 3. SEVERE PULMONARY HYPERTENSION WITH RIGHT VENTRICULAR SYSTOLIC PRESSURE GREATER THAN 70 mmHg 4. RIGHT ATRIAL ENLARGEMENT 5. MODERATE TRICUSPID REGURGITATION 6. MILD MITRAL REGURGITATION/ AORTIC INSUFFICIENCY TECHNOLOGIST: MACK CLAUDIO Dictated By: Jacinto Patton 01/28/24 7419 CKD unknown baseline Acute kidney injury likely secondary to prerenal Nephrology to consult, to adjust diuretic Trend kidney function, minimal increase in creatinine today (02/04/24) bilateral thyroid nodules thyroid u/s (01/10): TI-RADS 5 (high suspicious) nodule in the right thyroid lobe measuring 1 cm. Several other smaller thyroid nodules noted bilaterally. check thyroid studies f/u outpatient Hypertension seizure disorder, chronic Fibromyalgia/chronic pain hx breast cancer s/p mastectomy hx CVA/TIA confirm home meds, restart as appropriate Full code DVT home eliquis Diet cardiac Disposition Home independent prior Discharge Plan: Home Plan to discharge in: 48 Hours <Nighat Ponce - Last Filed: 02/04/24 07:57> - Plan Pt seen and examined. I agree with the note by the BALANCE WHEEL SCREW HOLE DRILLER. Waiting for recommendation from cardiology. TSH is 4.2, free T4 1.32. Will continue synthroid. She was advised to follow up with an Cad Application Support Specialist to evaluate the thyroid nodule. Will continue home med for other chronic medical problems. <Adeola Hurt - Last Filed: 02/04/24 11:01>
[2024-02-04 08:16] LABS: Thyroid Stimulating Hormone 4.27 uIU/mL (0.358-3.740)
--- NOTE | 2024-02-04 13:46 | EKG ---
Test Date: 2024-02-03 Test Time: 15:22:58 Seafood Processor: NAVEEN MEASUREMENT RESULTS: Intervals: Rate: 91 KS: QRSD: 156 QT: 470 QTc: 578 [place]: P: KS: QRS: 116 T: -54 INTERPRETIVE STATEMENTS: Atrial fibrillation Right bundle branch block Left posterior fascicular block Bifascicular block T wave abnormality, consider lateral ischemia or digitalis effect Abnormal ECG Compared to ECG 01/27/2024 12:26:56 Left posterior fascicular block now present Bifascicular block now present T-wave abnormality still present Possible ischemia still present Electronically Signed On 02-04-24 13:44:26 CDT by Jacinto Patton
--- NOTE | 2024-02-04 15:36 | RAD REPORT ---
EXAM DESCRIPTION: US - Renal Ultrasound-Complete - 02/04/2024 3:02 pm CLINICAL HISTORY: Abdominal pain COMPARISON: None FINDINGS: The right kidney measures 7 cm with a normal echotexture. The left kidney measures 17cm with a normal echotexture. Hydronephrosis is not seen. The bladder is decompressed and poorly evaluated IMPRESSION: Small kidneys No hydronephrosis
--- NOTE | 2024-02-04 17:53 | CON ---
Date of Consultation: 02/04/2024 Reason For Consultation: Patient is admitted to the hospital because of acute and chronic renal failure. Nephrology is consulted for acute on chronic kidney disease. 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 She also has congestive heart failure with diastolic dysfunction and previous admission for congestive heart failure exacerbation when she was seen by thermostat machine tender. At that time, echo was done and showed severe pulmonary hypertension. Patient was complaining of dyspnea and lower extremity edema that started after being discharged from the hospital in December. She complains of orthopnea, PND. Denies wheezing, syncope, palpitation. She denies fever, cough, dizziness, and diarrhea. Patient is seeing a thermostat machine tender in outpatient for congestive heart failure. Cardiology was consulted for [id number] myocardial infarction and congestive heart failure exacerbation. Patient presented to the hospital with shortness of breath. She was found to have acute on chronic diastolic congestive heart failure and pulmonary edema was present. The patient was found to have hypoxemia and she is on O2 nasal cannula. Past Medical History: TIA, CVA, atrial fibrillation, hypertension, hypoglycemia, fibromyalgia, chronic pain, history of breast cancer treated in 2022, cholecystectomy, appendectomy, hysterectomy, hernia repair, mastectomy with implant. Social History: Denies alcohol. Denies tobacco. Denies drug. Family History: Father, heart disease and stroke. Mother, heart disease and stroke as well. Home Medications: Amiodarone, Eliquis, metoprolol, gabapentin, clonidine, tramadol, furosemide, Zetia. Physical Examination: General: Patient is awake, alert, follows commands. Eyes: Anicteric sclerae. EOMI. Ears, Nose, Mouth, and Throat: Oral mucosa moist. No pallor. Neck: Supple. No bruits. Lungs: Few rhonchi. Crackles bilaterally at bases. Cardiovascular: No pericardial friction rub. S1, S2. GI: Abdomen soft, benign. Nontender. No rebound. No guarding. Extremities: No edema. No clubbing. No cyanosis. Skin: Warm and dry. Laboratory Work: WBC 7.0, hemoglobin 12.4, hematocrit 38.1, potassium 4.1, sodium 137, BUN 53, hemoglobin 12.4, WBC 7.0. Assessment And Plan: 1. Patient has congestive heart failure exacerbation, [id number] myocardial infarction. She presented to the hospital because of progressively worse shortness of breath. She was found to have acute hypoxemic respiratory failure. Patient is on p.o. intake and she is tolerating p.o. fluids. The patient was found to have acute on chronic kidney injury. Likely, the acute kidney injury is due to cardiorenal syndrome. Monitor electrolytes and avoid nonsteroidal anti-inflammatory medication. Patient has history of atrial fibrillation. Further recommendation from Cardiology. Urinalysis will be obtained and urine protein to creatinine ratio will be checked too. 2. Acute kidney injury secondary to prerenal azotemia, nonoliguric ATN, and the patient does not require dialysis. Monitor renal panel daily. Patient does not have symptoms of incomplete voiding or difficulty with urination. Plan is to check bladder scan to rule out neurogenic bladder and evaluate CK level to rule out rhabdomyolysis. 3. Bilateral thyroid nodules. The patient already had workup done with primary team and she will need to follow up with her primary care physician. ROBERTO CARLOS/RU Voice ID: [id number] Report ID: [id number] ROSETTA
[2024-02-04 23:32] LABS: Specific Gravity 1.015 (1.005-1.030); Sqamous Epithelial <5 /HPF (None Seen); Urine Bacteria None Seen /HPF (<20); Urine Bilirubin NEGATIVE (Negative); Urine Blood Negative (Negative); Urine Clarity Clear (Clear); Urine Color Light-Yellow (Yellow); Urine Culture Reflex Order NOT NEEDED; Urine Glucose NEGATIVE (Negative); Urine Ketones NEGATIVE (Negative); Urine Microscopic Reflex YN ORDER UMIC; Urine Mucus Slight /HPF (None Seen); Urine Nitrite NEGATIVE (Negative); Urine Protein 1+ (Negative); Urine RBC <5 /HPF (None Seen); Urine Urobilinogen 1+ (Normal); Urine WBC <5 /HPF (<5); Urine pH 5.5 (5.0-7.0)
[2024-02-05 06:24] LABS: Albumin 3.2 g/dL (3.4-5.0); Albumin/Globulin Ratio 0.9 (1.1-1.8); Bilirubin Total 1.3 mg/dL (0.2-1.0); Globulin 3.6 g/dL (2.3-3.5); Magnesium 2.5 mg/dL (1.6-2.4); Protein, Total 6.8 g/dL (6.4-8.2)
[2024-02-05 06:25] LABS: Troponin High Sensitivity 60.9 pg/mL (<58.9)
--- NOTE | 2024-02-05 13:36 | PN ---
Subjective: with kidney injury secondary to cardiorenal. Patient started on diuresis. P atient currently had shortness of breath, subsided. Patient still has significant leg swelling. Objective: Vital Signs: Blood pressure 113/75, pulse of 72, afebrile. Chest: Crackles, bilateral. Heart: S1, S2. Systolic murmur. Abdomen: Soft, nontender. Extremity: +2 edema. Neurologic: Alert. No focality. Current Medications: The patient on include Zofran, Eliquis, Lopressor, Neurontin, [place]. Laboratory Data: Sodium 139, potassium 5, bicarb 32, BUN 65, creatinine 2, calcium 9.1, magnesium 2. 5. Assessment And Plan: 1.Acute kidney injury secondary to cardiorenal. I am going to resume diuresis and we will monitor t he patient. 2.Hypertension, controlled. We will utilize the blood pressure for more diuresis. 3.Congestive heart failure with exacerbation. We will try to optimize the fluid status. 4.Hyponatremia secondary to dilutional, cardiorenal. We will continue adjusting to optimize diuresi s and we will follow up. GEORGE/RU Voice ID: [id number] Report ID: [id number]
--- NOTE | 2024-02-05 14:37 | P.PN ---
Subjective Date of Service: 02/05/24 Chief Complaint: Acute on chronic heart failure Subjective: No C/O voiced (Lungs sound better, sitting up 90, no O2 in use) <Nighat Ponce - Last Filed: 02/05/24 14:34> Date of Service: 02/05/24 <Adeola Hurt - Last Filed: 02/05/24 23:01> Review of Systems 10-point ROS is otherwise unremarkable Respiratory: Shortness of Breath Cardiovascular: Palpitations, Orthopnea <Nighat Ponce - Last Filed: 02/05/24 14:34> Physical Examination - Vital Signs Temperature: 96.9 F Blood Pressure: 113/75 Pulse: 72 Respirations: 16 Pulse Ox (%): 90 - Physical Exam General: Alert, In no apparent distress, Oriented x3 HEENT: Atraumatic, Normocephalic Neck: Supple Respiratory: Normal air movement Cardiovascular: Edema, Irregular heart rate/rhythm, Abnormal S1 S2 Capillary refill: <2 Seconds Gastrointestinal: Normal bowel sounds Musculoskeletal: No clubbing Integumentary: No rashes Neurological: Normal speech, Normal tone, Normal affect Lymphatics: No axilla or inguinal lymphadenopathy External genitalia: Deferred Rectal: Deferred <Nighat Ponce - Last Filed: 02/05/24 14:34> Assessment And Plan - Plan Congestive heart failure (CHF) NSTEMI Pulmonary edema Acute hypoxic respiratory failure secondary to decompensated heart failure paroxysmal a-fib on anticoagulation Current Visit: Yes Status: Acute Plan: BNP 22924, troponin 59.2 02/05/24 - trop 60 but trending flat Chest x-ray IMPRESSION: Aeration of the lung similar to 01/30/2024 with small right pleural effusion and possibly mild pulmonary edema. O2 2 L keep sats greater than 94% (02/04/24 crackles to bilateral bases), Kyphosis EKG 91 beats/min. Rhythm is irregularly irregular. QRS interval is normal. QT interval is normal. No Q waves. T waves are Normal. No ST changes noted. Clinical impression: Atrial Fibrillation ECHO: COMMENTS: 1. NORMAL LEFT VENTRICULAR EJECTION FRACTION 50-55% WITH ATRIAL FIBRILLATION 2. LEFT ATRIAL ENLARGEMENT 3. SEVERE PULMONARY HYPERTENSION WITH RIGHT VENTRICULAR SYSTOLIC PRESSURE GREATER THAN 70 mmHg 4. RIGHT ATRIAL ENLARGEMENT 5. MODERATE TRICUSPID REGURGITATION 6. MILD MITRAL REGURGITATION/ AORTIC INSUFFICIENCY TECHNOLOGIST: MACK CLAUDIO Dictated By: Jacinto Patton 01/28/24 8264 Cardiology following 02/05/24 CKD unknown baseline Acute kidney injury likely secondary to prerenal Nephrology to consult, to adjust diuretic, Dr. Trent following Trend kidney function, minimal increase in creatinine today (02/04/24), creatinine just over 2 today bilateral thyroid nodules thyroid u/s (01/10): TI-RADS 5 (high suspicious) nodule in the right thyroid lobe measuring 1 cm. Several other smaller thyroid nodules noted bilaterally. check thyroid studies f/u outpatient Hypertension seizure disorder, chronic Fibromyalgia/chronic pain hx breast cancer s/p mastectomy hx CVA/TIA confirm home meds, restart as appropriate Full code DVT home eliquis Diet cardiac Disposition Home independent prior <Nighat Ponce - Last Filed: 02/05/24 14:34> - Plan Pt seen and examined. I agree iwth the note by the DOOR PERSON. Cardiology started lasix 40mg iv BID and amiodarone 200mg po BID. Continue home meds for other medical problems. <Adeola Hurt - Last Filed: 02/05/24 23:01>
--- NOTE | 2024-02-05 16:42 | P.CNS ---
Date of Consult: 02/05/24 Chief Complaint: Acute on chronic heart failure History of Present Illness: Patient with PMH of atrial fibrillation, heart failure, presented with worsening SOB and bilateral lower extremities swelling, assoicated with chest congestion, denies dizzy spells, no syncope. Allergies aspirin [From Aggrenox] Allergy (Verified 11/15/21 00:36) Hives/Rash dipyridamole [From Aggrenox] Allergy (Verified 11/15/21 00:36) Hives/Rash meperidine [From Demerol] Allergy (Verified 11/15/21 00:36) Hives/Rash morphine Allergy (Verified 11/15/21 00:36) Hives/Rash Home Medications: Ezetimibe 10 mg PO DAILY 30 Days #30 tablet 11/17/21 Amiodarone HCl [Cordarone*] 200 mg PO DAILY 01/26/24 Apixaban [Eliquis *] 2.5 mg PO BID 01/26/24 Gabapentin [Neurontin*] 100 mg PO BEDTIME 01/26/24 Metoprolol Tartrate [Lopressor*] 50 mg PO BID 01/26/24 cloNIDine [Clonidine] 1 each TD EVERY 7TH DAY 01/26/24 Tramadol HCl [Ultram] 50 mg PO DAILYPRN PRN 01/28/24 Furosemide [Lasix] 40 mg PO DAILY #37 tab 01/30/24 - Past Medical/Surgical History Diabetic: No -: TIA/CVA -: Afib -: HTN -: Sz-hypoglycemia -: Fibromyalgia/chronic pain -: History of breast cancer treated in 2002 -: Madiha/Appy/hysterectomy -: hernia repair -: mastectomy with implants and removal Psychosocial/ Personal History: Pt lives at home, alone. - Family History Father Medical History: Heart disease, Stroke Mother Medical History: Heart disease, Stroke - Social History Alcohol use: No CD- Drugs: No Caffeine use: Yes Place of Residence: Home Review of Systems 10-point ROS is otherwise unremarkable Physical Examination Temp Pulse Resp BP Pulse Ox 98.2 F 86 16 144/92 H 94 02/05/24 16:00 02/05/24 16:00 02/05/24 16:00 02/05/24 16:00 02/05/24 16:00 General: Alert, In no apparent distress HEENT: Atraumatic, PERRLA, Mucous membr. moist/pink, EOMI, Sclerae nonicteric Neck: Supple, 2+ carotid pulse no bruit, No LAD, Without JVD or thyroid abnormality Respiratory: Crackles/rales Cardiovascular: Edema, Irregular heart rate/rhythm Gastrointestinal: Normal bowel sounds, No tenderness Musculoskeletal: No tenderness Integumentary: No rashes Neurological: Normal gait, Normal speech, Normal tone, Normal affect Lymphatics: No axilla or inguinal lymphadenopathy - Problems (1) Acute on chronic diastolic heart failure Current Visit: Yes Status: Acute Plan: IV diuresis with Lasix 40 mg IV BID monitor input and output continue lopressor (2) Atrial fibrillation Current Visit: Yes Status: Acute Plan: currently rate controlled, recently tried DCCV COLLINS but unable to intubate continue amiodarone 200 mg po BID continue Eliquis 2.5 mg po BID refer to EP for ablation as outpatient
[2024-02-05] MEDS: FUROSEMIDE 40 MG/4 ML VIAL IV SCH (18:38)
[2024-02-05] MEDS: AMIODARONE HCL 200 MG TAB PO SCH (21:03)
[2024-02-06 08:08] LABS: Absolute Basophils 0.1 K/uL (0-0.5); Absolute Eosinophils 0.1 K/uL (0-0.5); Absolute Lymphocytes (CBC) 1.1 K/uL (0.7-4.9); Absolute Monocytes 0.7 K/uL (0.1-1.3); Absolute Neutrophil 6.5 K/uL (1.8-8.0); Eosinophils % 0.6 % (0-4.4); Hemoglobin 13.6 g/dL (12.0-15.0); Lymphocytes % 13.4 % (15.3-44.8); MCH 29.9 pg (27.0-35.0); MCHC 33.1 g/dL (32.0-36.0); MCV 90.5 fL (80-100); MPV 7.6 fL (7.6-11.3); Monocytes % 8.3 % (3.3-12.3); Neutrophils % 76.7 % (41.7-73.7); Nucleated Red Blood Cells % 0.1 % (0-0); Platelets 281 thou/uL (152-406); RBC Red Blood Cell Count 4.53 M/uL (3.86-4.86); Red Cell Distribution Width 17.5 % (12.1-15.2)
[2024-02-06 08:24] LABS: Anion Gap 6.5 mEq/L (5.0-15.0); Potassium 4.5 mEq/L (3.5-5.1)
[2024-02-06 10:22] LABS: Specific Gravity 1.013 (1.005-1.030); Sqamous Epithelial <5 /HPF (None Seen); Urine Bacteria None Seen /HPF (<20); Urine Bilirubin NEGATIVE (Negative); Urine Blood Negative (Negative); Urine Clarity Clear (Clear); Urine Color Light-Yellow (Yellow); Urine Culture Reflex Order NOT NEEDED; Urine Glucose NEGATIVE (Negative); Urine Ketones NEGATIVE (Negative); Urine Micro Reflex YN NO BILL MICROSCOPIC; Urine Nitrite NEGATIVE (Negative); Urine Protein 1+ (Negative); Urine RBC <5 /HPF (None Seen); Urine Urobilinogen Normal (Normal); Urine WBC <5 /HPF (<5); Urine pH 5.5 (5.0-7.0)
--- NOTE | 2024-02-06 15:55 | P.PN ---
Subjective Date of Service: 02/06/24 Chief Complaint: Acute on chronic heart failure Subjective: Improving (Lasix and amiodarone started yesterday 02/05/24. Pt is currently sitting up in bed, comfortable, without c/o) <Nighat Poncelen - Last Filed: 02/06/24 15:53> Date of Service: 02/06/24 <Adeola Hurt C - Last Filed: 02/06/24 18:01> Review of Systems 10-point ROS is otherwise unremarkable <Nighat Poncelen - Last Filed: 02/06/24 15:53> Physical Examination - Vital Signs Temperature: 97.0 F Blood Pressure: 119/80 Pulse: 73 Respirations: 16 Pulse Ox (%): 91 - Physical Exam General: Alert, In no apparent distress, Oriented x3 HEENT: Atraumatic Neck: Supple Respiratory: Normal air movement, Expiratory wheezes Cardiovascular: Irregular heart rate/rhythm, Abnormal S1 S2 Capillary refill: <2 Seconds Gastrointestinal: Soft and benign Musculoskeletal: No clubbing Integumentary: Other (flushed) Neurological: Normal speech, Normal tone, Normal affect Lymphatics: No axilla or inguinal lymphadenopathy External genitalia: Deferred Rectal: Deferred <Nighat Poncelen - Last Filed: 02/06/24 15:53> Assessment And Plan - Plan Congestive heart failure (CHF) NSTEMI Pulmonary edema Acute hypoxic respiratory failure secondary to decompensated heart failure paroxysmal a-fib on anticoagulation Current Visit: Yes Status: Acute Plan: BNP 28219, troponin 59.2 02/05/24 - trop 60 but trending flat Chest x-ray IMPRESSION: Aeration of the lung similar to 01/30/2024 with small right pleural effusion and possibly mild pulmonary edema. O2 2 L keep sats greater than 94% (02/04/24 crackles to bilateral bases), Kyphosis EKG 91 beats/min. Rhythm is irregularly irregular. QRS interval is normal. QT interval is normal. No Q waves. T waves are Normal. No ST changes noted. Clinical impression: Atrial Fibrillation ECHO: COMMENTS: 1. NORMAL LEFT VENTRICULAR EJECTION FRACTION 50-55% WITH ATRIAL FIBRILLATION 2. LEFT ATRIAL ENLARGEMENT 3. SEVERE PULMONARY HYPERTENSION WITH RIGHT VENTRICULAR SYSTOLIC PRESSURE GREATER THAN 70 mmHg 4. RIGHT ATRIAL ENLARGEMENT 5. MODERATE TRICUSPID REGURGITATION 6. MILD MITRAL REGURGITATION/ AORTIC INSUFFICIENCY TECHNOLOGIST: MACK CLAUDIO Dictated By: Jacinto Patton 01/28/24 [id number] Cardiology following 02/05/24 - started lasix and amiodarone CKD unknown baseline Acute kidney injury likely secondary to prerenal Nephrology to consult, to adjust diuretic, Dr. Trent following Trend kidney function, minimal increase in creatinine today (02/04/24), creatinine just over 2 today 02/06/24 creatinine trending down from 2 to 1.74 bilateral thyroid nodules thyroid u/s (01/10): TI-RADS 5 (high suspicious) nodule in the right thyroid lobe measuring 1 cm. Several other smaller thyroid nodules noted bilaterally. check thyroid studies f/u outpatient Hypertension seizure disorder, chronic Fibromyalgia/chronic pain hx breast cancer s/p mastectomy hx CVA/TIA confirm home meds, restart as appropriate Full code DVT home eliquis Diet cardiac Disposition Home independent prior <Nighat Ponce - Last Filed: 02/06/24 15:53> - Plan Pt seen and examined. I agree with the note by the PROJECT MANAGEMENT IT SPECIALIST. Will continue lasix 40mg iv BID and amiodarone 200mg po BID. Continue home meds for other chronic medical problems. <Adeola Hurt - Last Filed: 02/06/24 18:01>
--- NOTE | 2024-02-06 16:52 | P.PN ---
Subjective Date of Service: 02/06/24 Chief Complaint: Acute on chronic heart failure Subjective: No new changes, No C/O voiced, Tolerating diet, Ambulating, Improving Review of Systems 10-point ROS is otherwise unremarkable Physical Examination - Vital Signs Temperature: 97.0 F Blood Pressure: 119/80 Pulse: 73 Respirations: 16 Pulse Ox (%): 91 - Physical Exam General: Alert, In no apparent distress HEENT: Atraumatic, PERRLA, EOMI Neck: Supple, JVD not distended Respiratory: Clear to auscultation bilaterally, Normal air movement Cardiovascular: Irregular heart rate/rhythm Gastrointestinal: Normal bowel sounds, No tenderness Musculoskeletal: No tenderness Integumentary: No rashes Neurological: Normal speech, Normal tone, Normal affect Lymphatics: No axilla or inguinal lymphadenopathy - Studies Medications List Reviewed: Yes Assessment And Plan - Current Problems (Diagnosis) (1) Acute on chronic diastolic heart failure Current Visit: Yes Status: Acute Plan: IV diuresis with Lasix 40 mg IV BID monitor input and output continue lopressor (2) Atrial fibrillation Current Visit: Yes Status: Acute Plan: currently rate controlled, recently tried DCCV CO[place]INS but unable to intubate continue amiodarone 200 mg po BID continue Eliquis 2.5 mg po BID refer to EP for ablation as outpatient
--- NOTE | 2024-02-07 01:01 | PN ---
Subjective: The patient was admitted to the hospital with acute kidney injury secondary to cardioren al anasarca. The patient has been diuresed. The patient is currently on room air. Physical Examination: Vital Signs: Blood pressure 122/81, pulse of 69, afebrile. Chest: Crackles, bilateral. Heart: S1, S2. Systolic murmur. Abdomen: Soft, nontender. Extremities: +2 edema. Neuro: Alert. No focality. Laboratory Data: Hemoglobin 13.6. Sodium 140, potassium 4.5, bicarb 34, BUN 54, creatinine down to 1.7, calcium 9. Current Medications: The patient is on Lasix 40 mg b.i.d., amiodarone, Eliquis, gabapentin. Assessment And Plan: 1.Acute kidney injury secondary to cardiorenal, still over volume. We will continue diuresis. 2.Hypertension. We will utilize blood pressure for more diuresis. 3.Hyperkalemia, resolved. Continue diuresis. 4.Anasarca secondary to cardiorenal. 5.Hypothyroidism has been ruled out. We will continue to monitor with the primary. GEROGE/RU Voice ID: [id number] Report ID: [id number]
[2024-02-07 06:38] LABS: Absolute Basophils 0.1 K/uL (0-0.5); Absolute Eosinophils 0.1 K/uL (0-0.5); Absolute Lymphocytes (CBC) 1.3 K/uL (0.7-4.9); Absolute Monocytes 0.8 K/uL (0.1-1.3); Absolute Neutrophil 7.4 K/uL (1.8-8.0); Basophils % 0.8 % (0-1.3); Eosinophils % 0.7 % (0-4.4); Hematocrit 42.4 % (36.0-45.0); Hemoglobin 14.1 g/dL (12.0-15.0); Lymphocytes % 13.8 % (15.3-44.8); MCHC 33.1 g/dL (32.0-36.0); MCV 90.6 fL (80-100); MPV 7.9 fL (7.6-11.3); Monocytes % 8.1 % (3.3-12.3); Neutrophils % 76.6 % (41.7-73.7); Nucleated Red Blood Cells % 0.1 % (0-0); Platelets 316 thou/uL (152-406); RBC Red Blood Cell Count 4.68 M/uL (3.86-4.86); Red Cell Distribution Width 17.2 % (12.1-15.2)
[2024-02-07 07:00] LABS: Albumin 3.1 g/dL (3.4-5.0); Albumin/Globulin Ratio 0.9 (1.1-1.8); Anion Gap 7.8 mEq/L (5.0-15.0); Bilirubin Total 1.3 mg/dL (0.2-1.0); Globulin 3.3 g/dL (2.3-3.5); Magnesium 2.3 mg/dL (1.6-2.4); Potassium 3.8 mEq/L (3.5-5.1); Protein, Total 6.4 g/dL (6.4-8.2)
[2024-02-07 07:30] LABS: White Blood Cell Scan OK (OK)
[2024-02-07 07:31] LABS: Blood Morphology Comment NOT SEEN (NOT SEEN); Platelet Estimate ADEQ
[2024-02-07] MEDS: POTASSIUM 25 MEQ EFFERV TAB PO ONE (08:39)
[2024-02-07] MEDS: ONDANSETRON 4 MG/2 ML VIAL IV PRN (10:54)
--- NOTE | 2024-02-07 11:54 | P.PN ---
Subjective Date of Service: 02/07/24 Chief Complaint: Acute on chronic heart failure Subjective: Improving (pt sitting up in bed, still with SOB on lying flat, 2+ edema to lower ext) <Nighat Ponce - Last Filed: 02/07/24 11:49> Date of Service: 02/07/24 <Adeola Hurt - Last Filed: 02/07/24 12:09> Review of Systems 10-point ROS is otherwise unremarkable Respiratory: Shortness of Breath Cardiovascular: Palpitations <Nighat Poncelen - Last Filed: 02/07/24 11:49> Physical Examination - Vital Signs Temperature: 97.1 F Blood Pressure: 146/83 Pulse: 95 Respirations: 16 Pulse Ox (%): 92 - Physical Exam General: Alert, In no apparent distress, Oriented x3 HEENT: Atraumatic, Normocephalic Neck: Supple Respiratory: Diminished, Expiratory wheezes Cardiovascular: Edema, Irregular heart rate/rhythm Capillary refill: <2 Seconds Gastrointestinal: Soft and benign Musculoskeletal: No clubbing Integumentary: No rashes Neurological: Normal speech, Normal tone, Normal affect Lymphatics: No axilla or inguinal lymphadenopathy External genitalia: Deferred Rectal: Deferred - Studies Medications List Reviewed: Yes <Nighat Ponce - Last Filed: 02/07/24 11:49> Assessment And Plan - Plan Congestive heart failure (CHF) NSTEMI Pulmonary edema Acute hypoxic respiratory failure secondary to decompensated heart failure paroxysmal a-fib on anticoagulation Current Visit: Yes Status: Acute Plan: BNP 35790, troponin 59.2 02/05/24 - trop 60 but trending flat Chest x-ray IMPRESSION: Aeration of the lung similar to 01/30/2024 with small right pleural effusion and possibly mild pulmonary edema. O2 2 L keep sats greater than 94% (02/04/24 crackles to bilateral bases), Kyphosis EKG 91 beats/min. Rhythm is irregularly irregular. QRS interval is normal. QT interval is normal. No Q waves. T waves are Normal. No ST changes noted. Clinical impression: Atrial Fibrillation ECHO: COMMENTS: 1. NORMAL LEFT VENTRICULAR EJECTION FRACTION 50-55% WITH ATRIAL FIBRILLATION 2. LEFT ATRIAL ENLARGEMENT 3. SEVERE PULMONARY HYPERTENSION WITH RIGHT VENTRICULAR SYSTOLIC PRESSURE GREATER THAN 70 mmHg 4. RIGHT ATRIAL ENLARGEMENT 5. MODERATE TRICUSPID REGURGITATION 6. MILD MITRAL REGURGITATION/ AORTIC INSUFFICIENCY TECHNOLOGIST: MACK CLAUDIO Dictated By: Jacinto Patton 01/28/24 6415 Cardiology following 02/05/24 - started lasix and amiodarone 02/07/24 continued edema and a fib CKD unknown baseline Acute kidney injury likely secondary to prerenal Nephrology to consult, to adjust diuretic, Dr. Trent following Trend kidney function, minimal increase in creatinine today (02/04/24), creatinine just over 2 today 02/06/24 creatinine trending down from 2 to 1.74 02/07/24 creatinine 1.83 today bilateral thyroid nodules thyroid u/s (01/10): TI-RADS 5 (high suspicious) nodule in the right thyroid lobe measuring 1 cm. Several other smaller thyroid nodules noted bilaterally. check thyroid studies - TSH 4.27, free T4 1.32 f/u outpatient Hypertension seizure disorder, chronic Fibromyalgia/chronic pain hx breast cancer s/p mastectomy hx CVA/TIA confirm home meds, restart as appropriate Full code DVT home eliquis Diet cardiac Disposition Home independent prior <Nighat Ponce - Last Filed: 02/07/24 11:49> - Plan Pt seen and examined. I agree with the note by the BRINE TANK OPERATOR. Will continue lasix 40mg iv BID, eliquis 2.5mg po BID, and amiodarone 200mg po BID. Pt will f/u with EP at [facility] for ablation therapy. Continue home meds for other chronic medical problems. <Adeola Hurt - Last Filed: 02/07/24 12:09>
[2024-02-07] MEDS: METOLAZONE 2.5 MG TABLET PO ONE (12:01)
--- NOTE | 2024-02-07 12:15 | P.PN ---
Subjective Date of Service: 02/07/24 Chief Complaint: Acute on chronic heart failure Subjective: No new changes, No C/O voiced, Tolerating diet, Ambulating, Improving Review of Systems 10-point ROS is otherwise unremarkable Physical Examination - Vital Signs Temperature: 97.2 F Blood Pressure: 116/87 Pulse: 70 Respirations: 16 Pulse Ox (%): 94 - Physical Exam General: Alert, In no apparent distress HEENT: Atraumatic, PERRLA, EOMI Neck: Supple, JVD not distended Respiratory: Clear to auscultation bilaterally, Normal air movement Cardiovascular: Edema, Irregular heart rate/rhythm Gastrointestinal: Normal bowel sounds, No tenderness Musculoskeletal: No tenderness Integumentary: No rashes Neurological: Normal speech, Normal tone, Normal affect Lymphatics: No axilla or inguinal lymphadenopathy - Studies Medications List Reviewed: Yes Assessment And Plan - Current Problems (Diagnosis) (1) Acute on chronic diastolic heart failure Current Visit: Yes Status: Acute Plan: increase Lasix to 40 mg IV TID Metolazone 2.5 mg pox1 monitor input and output (please document in chart) continue lopressor (2) Atrial fibrillation Current Visit: Yes Status: Acute Plan: currently rate controlled, recently tried DCCV COLLINS but unable to intubate continue amiodarone 200 mg po BID continue Eliquis 2.5 mg po BID refer to EP for ablation as outpatient (3) Type 2 AL (myocardial infarction) Current Visit: Yes Status: Acute Plan: mild leak on troponin with no delta, most likely secondary to CHF and AF outpatient stress test.
[2024-02-07] MEDS ORDERED: FUROSEMIDE 40 MG/4 ML VIAL IV SCH (14:00)
[2024-02-07] MEDS: BUMETANIDE 1 MG/4 ML VIAL IV SCH (14:32)
--- NOTE | 2024-02-07 18:29 | PN ---
Date of Progress Note: 02/07/2024 Subjective: The patient was admitted with cardiorenal syndrome, anasarca. The patient has been diur esed very well. The patient responded very well. The patient is on room air, but still has signific ant peripheral edema. Physical Examination: Vital Signs: Blood pressure 116/87, pulse of 70, afebrile. The patient had good urine output. Chest: Faint rales on the base. Heart: S1, S2 systolic murmur. Abdomen: Soft, nontender. Extremities: +2 edema. Neurologic: Alert. No focality. Laboratory Data: Hemoglobin 14.1. Sodium 140, potassium 3.8, bicarb 33, BUN 57, creatinine 1.8, GFR 28, calcium 8.9, magnesium 2.3, albumin of 3.1. Urinalysis, +1 protein. Current Medications: The patient is on include gabapentin, metolazone, amiodarone, Eliquis, Lasix 40 t.i.d., metolazone. Assessment And Plan: 1.Acute kidney injury secondary to cardiorenal. The patient is still on the over volume side with s ignificant peripheral edema. TSH within normal limits, still did not have the PC ratio, but mostly i t is cardiorenal given the cardiac finding. The patient had low albumin. I am going to go ahead and switch her Lasix to Bumex as does not need any care here and I agree with metolazone and we will fol low up the patient. 2.Hypertension. We utilized blood pressure for more diuresis with the presence of severe pulmonary hypertension. I am going to go ahead and add spironolactone and we will follow up. 3.Anasarca secondary to congestive heart failure, as above. We will optimize the fluid status. GEORGE/RU Voice ID: [id number] Report ID: [id number]
[2024-02-08 00:10] LABS: UR PROTEIN 11.9 mg/dL (<11.9); Urine Protein/Creatinine Ratio 0.57 ratio (<0.15)
[2024-02-08] MEDS: SPIRONOLACTONE 25 MG TABLET PO SCH (09:59)
[2024-02-08 10:22] LABS: Anion Gap 8.6 mEq/L (5.0-15.0); Potassium 4.6 mEq/L (3.5-5.1)
--- NOTE | 2024-02-08 11:01 | P.PN ---
Date of Service: 02/08/24 Pt feeling a little better, less edema. Review of Systems 10-point ROS is otherwise unremarkable Respiratory: Shortness of Breath Cardiovascular: Palpitations Physical Examination - Vital Signs reviewed - Physical Exam General: Alert, In no apparent distress, Oriented x3 HEENT: Atraumatic, Normocephalic Neck: Supple Respiratory: Diminished, Expiratory wheezes Cardiovascular: Edema resolved, Irregular heart rate/rhythm Capillary refill: <2 Seconds Gastrointestinal: Soft and benign Musculoskeletal: No clubbing Integumentary: No rashes Neurological: Normal speech, Normal tone, Normal affect Lymphatics: No axilla or inguinal lymphadenopathy External genitalia: Deferred Rectal: Deferred - Studies Medications List Reviewed: Yes Assessment And Plan - Plan Congestive heart failure (CHF) NSTEMI Pulmonary edema Acute hypoxic respiratory failure secondary to decompensated heart failure paroxysmal a-fib on anticoagulation Current Visit: Yes Status: Acute Plan: BNP 85131, troponin 59.2 02/05/24 - trop 60 but trending flat - attempted TEECV but unable to intubate - need pedi tools in [place] Chest x-ray IMPRESSION: Aeration of the lung similar to 01/30/2024 with small right pleural effusion and possibly mild pulmonary edema. O2 2 L keep sats greater than 94% (02/04/24 crackles to bilateral bases), Kyphosis EKG 91 beats/min. Rhythm is irregularly irregular. QRS interval is normal. QT interval is normal. No Q waves. T waves are Normal. No ST changes noted. Clinical impression: Atrial Fibrillation ECHO: COMMENTS: 1. NORMAL LEFT VENTRICULAR EJECTION FRACTION 50-55% WITH ATRIAL FIBRILLATION 2. LEFT ATRIAL ENLARGEMENT 3. SEVERE PULMONARY HYPERTENSION WITH RIGHT VENTRICULAR SYSTOLIC PRESSURE GREATER THAN 70 mmHg 4. RIGHT ATRIAL ENLARGEMENT 5. MODERATE TRICUSPID REGURGITATION 6. MILD MITRAL REGURGITATION/ AORTIC INSUFFICIENCY TECHNOLOGIST: MACK CLAUDIO Dictated By: Jacinto Patton 01/28/24 7781 Cardiology following 02/05/24 - started lasix and amiodarone 02/07/24 continued edema and a fib CKD unknown baseline Acute kidney injury likely secondary to prerenal Nephrology to consult, to adjust diuretic, Dr. Trent following Trend kidney function, minimal increase in creatinine today (02/04/24), creatinine just over 2 today 02/06/24 creatinine trending down from 2 to 1.74 02/07/24 creatinine 1.83 today 02/08/24 unfortunately creatinine is higher today 2.61 with a GFR of 19 bilateral thyroid nodules thyroid u/s (01/10): TI-RADS 5 (high suspicious) nodule in the right thyroid lobe measuring 1 cm. Several other smaller thyroid nodules noted bilaterally. check thyroid studies - TSH 4.27, free T4 1.32 f/u outpatient Hypertension seizure disorder, chronic Fibromyalgia/chronic pain hx breast cancer s/p mastectomy hx CVA/TIA confirm home meds, restart as appropriate Full code DVT home eliquis Diet cardiac Disposition Home independent prior <Nighat Ponce - Last Filed: 02/08/24 11:02> Chart has been reviewed. Events of the last 24 hours have been noted. Case discussed with BALWINDER. I performed a substantial part of the MDM during this patient's care today. I personally made or approved the documented management plan and acknowledge its risk of complications. I agree with the findings and documentation provided in the BALWINDER's notes. Continue with cardiac medications. <Ksenia Cazares - Last Filed: 02/10/24 04:34>
--- NOTE | 2024-02-09 00:51 | PN ---
Date of Progress Note: 02/08/2024 Subjective: The patient is admitted for congestive heart failure. She was found to have cardiorenal syndrome associated with anasarca, fluid overload, and dyspnea. The patient has been treated with d iuretic. Bumex was started yesterday. Lasix was stopped. The patient is on metolazone and IV Bumex . Review of Systems: The patient is feeling better. Denies PND, orthopnea. Physical Examination: Lungs: Few rhonchi. Crackles bilaterally at bases. Heart: S1, S2. 2/6 systolic murmur, left lower sternal border. Abdomen: Soft, nontender. Extremities: 2+ edema. Laboratory Data: BUN is 57, creatinine increased from 1.8 to 2.6, sodium 135, potassium re-evaluated was 4.6, chloride 97, total CO2 34, BUN 69, creatinine 2.61, calcium 9.1. Impression And Plan: 1.Acute on chronic kidney injury, cardiorenal syndrome. Renal function has declined. Plan is to re duce diuretics, and the patient will continue Bumex 1 mg daily along with metolazone. The patient encinas s severe cardiorenal syndrome. The patient was found to have anasarca. TSH is within normal limits. The patient is to continue low-sodium diet. Lasix was stopped and Bumex was initiated for adequate diuresis. 2.Hypertension. Blood pressure is stable. The patient will have spironolactone for potassium-spari ng effect. Monitor electrolytes closely. The patient has severe pulmonary hypertension. Recommend Cardiology workup and Pulmonary workup. 3.Anasarca due to congestive heart failure. Continue low-sodium diet. Overall, volemia has improve d in response to diuretic. EB/MODL Voice ID: [id number] Report ID: [id number]
[2024-02-09] MEDS: BUMETANIDE 1 MG/4 ML VIAL IV SCH (08:26)
[2024-02-09 09:36] LABS: Absolute Basophils 0.1 K/uL (0-0.5); Absolute Eosinophils 0.1 K/uL (0-0.5); Absolute Lymphocytes (CBC) 1.7 K/uL (0.7-4.9); Absolute Monocytes 0.7 K/uL (0.1-1.3); Absolute Neutrophil 6.5 K/uL (1.8-8.0); Basophils % 0.9 % (0-1.3); Hematocrit 43.6 % (36.0-45.0); Hemoglobin 14.1 g/dL (12.0-15.0); Lymphocytes % 18.7 % (15.3-44.8); MCH 29.5 pg (27.0-35.0); MCHC 32.2 g/dL (32.0-36.0); MCV 91.8 fL (80-100); MPV 8.1 fL (7.6-11.3); Neutrophils % 71.4 % (41.7-73.7); Nucleated Red Blood Cells % 0.3 % (0-0); Platelets 326 thou/uL (152-406); RBC Red Blood Cell Count 4.76 M/uL (3.86-4.86); Red Cell Distribution Width 17.9 % (12.1-15.2)
[2024-02-09 09:52] LABS: Albumin 3.2 g/dL (3.4-5.0); Albumin/Globulin Ratio 0.9 (1.1-1.8); Anion Gap 10.6 mEq/L (5.0-15.0); Bilirubin Total 1.2 mg/dL (0.2-1.0); Globulin 3.5 g/dL (2.3-3.5); Potassium 4.6 mEq/L (3.5-5.1); Protein, Total 6.7 g/dL (6.4-8.2)
--- NOTE | 2024-02-09 11:26 | P.PN ---
Subjective Date of Service: 02/09/24 Chief Complaint: Acute on chronic heart failure Subjective: No new changes, No C/O voiced, Tolerating diet, Ambulating, Improving Review of Systems 10-point ROS is otherwise unremarkable Physical Examination - Vital Signs Temperature: 97.0 F Blood Pressure: 108/61 Pulse: 69 Respirations: 12 Pulse Ox (%): 91 - Physical Exam General: Alert, In no apparent distress HEENT: Atraumatic, PERRLA, EOMI Neck: Supple, JVD not distended Respiratory: Clear to auscultation bilaterally, Normal air movement Cardiovascular: Edema, Irregular heart rate/rhythm Gastrointestinal: Normal bowel sounds, No tenderness Musculoskeletal: No tenderness Integumentary: No rashes Neurological: Normal speech, Normal tone, Normal affect Lymphatics: No axilla or inguinal lymphadenopathy - Studies Medications List Reviewed: Yes Assessment And Plan - Current Problems (Diagnosis) (1) Acute on chronic diastolic heart failure Current Visit: Yes Status: Acute Plan: there was significant increase in patient creatinine. Bumex lowered to 1 mg daily monitor input and output (please document in chart) continue lopressor (2) Atrial fibrillation Current Visit: Yes Status: Acute Plan: currently rate controlled, recently tried DCCV COLLINS but unable to intubate, Tele reviewed with some pauses but they are all short. continue amiodarone 200 mg po BID continue Eliquis 2.5 mg po BID refer to EP for ablation as outpatient (3) Type 2 SD (myocardial infarction) Current Visit: Yes Status: Acute Plan: mild leak on troponin with no delta, most likely secondary to CHF and AF outpatient stress test.
--- NOTE | 2024-02-09 11:33 | P.PN ---
Date of Service: 02/09/24 Pt appears more weak/fatigued. Creatinine increased. Soft blood pressure and HR 69. Review of Systems 10-point ROS is otherwise unremarkable Respiratory: Shortness of Breath Cardiovascular: Palpitations Physical Examination - Vital Signs reviewed - Physical Exam General: appears weak/fatigued, In no apparent distress, Oriented x3 HEENT: Atraumatic, Normocephalic Neck: Supple Respiratory: diminished but clear Cardiovascular: Edema improved but 1-2+ in lower extremities, Irregular heart rate/rhythm Capillary refill: <2 Seconds Gastrointestinal: Soft and benign Musculoskeletal: No clubbing Integumentary: No rashes Neurological: Normal speech, fatigued Lymphatics: No axilla or inguinal lymphadenopathy External genitalia: Deferred Rectal: Deferred - Studies Medications List Reviewed: Yes Assessment And Plan - Plan Congestive heart failure (CHF) NSTEMI Pulmonary edema Acute hypoxic respiratory failure secondary to decompensated heart failure paroxysmal a-fib on anticoagulation Current Visit: Yes Status: Acute Plan: BNP 13744, troponin 59.2 02/05/24 - trop 60 but trending flat - attempted TEECV but unable to intubate - need pedi tools in [place] Chest x-ray IMPRESSION: Aeration of the lung similar to 01/30/2024 with small right pleural effusion and possibly mild pulmonary edema. O2 2 L keep sats greater than 94% (02/04/24 crackles to bilateral bases), Kyphosis EKG 91 beats/min. Rhythm is irregularly irregular. QRS interval is normal. QT interval is normal. No Q waves. T waves are Normal. No ST changes noted. Clinical impression: Atrial Fibrillation ECHO: COMMENTS: 1. NORMAL LEFT VENTRICULAR EJECTION FRACTION 50-55% WITH ATRIAL FIBRILLATION 2. LEFT ATRIAL ENLARGEMENT 3. SEVERE PULMONARY HYPERTENSION WITH RIGHT VENTRICULAR SYSTOLIC PRESSURE GREATER THAN 70 mmHg 4. RIGHT ATRIAL ENLARGEMENT 5. MODERATE TRICUSPID REGURGITATION 6. MILD MITRAL REGURGITATION/ AORTIC INSUFFICIENCY TECHNOLOGIST: MACK CLAUDIO Dictated By: Jacinto Patton 01/28/24 1793 Cardiology following 02/05/24 - started lasix and amiodarone 02/07/24 continued edema and a fib 02/08 continue amiodarone, appt with DAYANA TAYLOR next week in [place] CKD unknown baseline Acute kidney injury likely secondary to prerenal Nephrology to consult, to adjust diuretic, Dr. Trent following Trend kidney function, minimal increase in creatinine today (02/04/24), creatinine just over 2 today 02/06/24 creatinine trending down from 2 to 1.74 02/07/24 creatinine 1.83 today 02/08/24 unfortunately creatinine is higher today 2.61 with a GFR of 19 02/09/24 creatinine continues to increase 2.89 GFR 16 bilateral thyroid nodules thyroid u/s (01/10): TI-RADS 5 (high suspicious) nodule in the right thyroid lobe measuring 1 cm. Several other smaller thyroid nodules noted bilaterally. check thyroid studies - TSH 4.27, free T4 1.32 f/u outpatient Hypertension seizure disorder, chronic Fibromyalgia/chronic pain hx breast cancer s/p mastectomy hx CVA/TIA confirm home meds, restart as appropriate Weakness consult PT Full code DVT home eliquis Diet cardiac Disposition Home independent prior <Nighat Ponce - Last Filed: 02/09/24 11:28> Pt seen and examined. I agree with the note by the PASTORAL WORKER. Pt complains that she is weak. Will continue diuretic and amiodarone. Pt will f/u with EP at [place] next week for ablation therapy. <Adeola Hurt - Last Filed: 02/09/24 13:36>
--- NOTE | 2024-02-09 12:05 | P.PN ---
Subjective Date of Service: 02/09/24 Chief Complaint: Acute on chronic heart failure Subjective: Other (Bedbound) Physical Examination - Vital Signs Temperature: 98.0 F Blood Pressure: 127/81 Pulse: 74 Respirations: 16 Pulse Ox (%): 91 - Physical Exam General: Other (chronically ill-appearing) HEENT: Atraumatic, Normocephalic Neck: Supple Respiratory: Other (symmetric chest expansion) Cardiovascular: No rubs, No murmurs Gastrointestinal: Soft and benign Musculoskeletal: No clubbing Integumentary: No warmth Neurological: Other (nonfocal) Urinary: Other (no bladder distention) External genitalia: Deferred Rectal: Deferred - Studies Medications List Reviewed: Yes Assessment And Plan - Plan # ALESIA 2/2 CRS1, on CKD serum creatinine increased to 2.9 Hold bumex [place] by mouth fluid intake Keep map greater than 65 monitor renal panel # Pulmonary hypertension TTE on 01/28/2024 showed normal EF 50-55%, left atrial enlargement, severe pulmonary hypertension with RVSP more than 70 mmHg On spironolactone hold Bumex, liberal by mouth fluid intake as above F/u urine chem # Hypertension Continue current medication regimen # Hyponatremia Mild Encourage by mouth solid food intake tid
[2024-02-10] MEDS: HYDROCODONE/APAP 5/325 MG TAB PO PRN (05:10)
[2024-02-10 05:47] LABS: Absolute Basophils 0.1 K/uL (0-0.5); Absolute Eosinophils 0.1 K/uL (0-0.5); Absolute Lymphocytes (CBC) 2.1 K/uL (0.7-4.9); Absolute Monocytes 0.6 K/uL (0.1-1.3); Absolute Neutrophil 5.3 K/uL (1.8-8.0); Basophils % 0.7 % (0-1.3); Eosinophils % 1.3 % (0-4.4); Hematocrit 41.5 % (36.0-45.0); Hemoglobin 13.6 g/dL (12.0-15.0); MCH 29.9 pg (27.0-35.0); MCHC 32.8 g/dL (32.0-36.0); MCV 91.2 fL (80-100); MPV 7.8 fL (7.6-11.3); Monocytes % 7.3 % (3.3-12.3); Neutrophils % 64.7 % (41.7-73.7); Nucleated Red Blood Cells % 0.3 % (0-0); Platelets 287 thou/uL (152-406); RBC Red Blood Cell Count 4.55 M/uL (3.86-4.86); Red Cell Distribution Width 17.3 % (12.1-15.2)
[2024-02-10 06:01] LABS: Anion Gap 12.8 mEq/L (5.0-15.0); Potassium 4.8 mEq/L (3.5-5.1)
--- NOTE | 2024-02-10 08:46 | P.PN ---
Subjective Date of Service: 02/10/24 Chief Complaint: Acute on chronic heart failure Subjective: No new changes (Decreased Bumex yesterday, Bumex held today, nephrology recommends liberal p.o. fluids. Ms. Ellington is feeling better this morning. However her lower extremities are again tight with fluid) <Nighat Poncelen - Last Filed: 02/10/24 08:40> Date of Service: 02/10/24 <Adeola Hurt - Last Filed: 02/10/24 10:32> Review of Systems 10-point ROS is otherwise unremarkable General: As per HPI Cardiovascular: Edema, Other (Shortness of breath improved unless increased activity) <Magda Poncenoe Lee - Last Filed: 02/10/24 08:40> Physical Examination - Vital Signs Temperature: 98.0 F Blood Pressure: 127/81 Pulse: 74 Respirations: 16 Pulse Ox (%): 91 - Physical Exam General: Alert, In no apparent distress, Oriented x3 HEENT: Atraumatic, Normocephalic, PERRLA Neck: Supple Respiratory: Normal air movement, Expiratory wheezes Cardiovascular: Edema, Irregular heart rate/rhythm Capillary refill: <2 Seconds Gastrointestinal: Soft and benign Musculoskeletal: No clubbing Integumentary: No rashes Neurological: Normal speech, Normal tone, Normal affect Lymphatics: No axilla or inguinal lymphadenopathy External genitalia: Deferred Rectal: Deferred - Studies Medications List Reviewed: Yes <Nighat Ponce - Last Filed: 02/10/24 08:40> Assessment And Plan - Plan Congestive heart failure (CHF) NSTEMI Pulmonary edema Acute hypoxic respiratory failure secondary to decompensated heart failure paroxysmal a-fib on anticoagulation Current Visit: Yes Status: Acute Plan: BNP 68220, troponin 59.2 02/05/24 - trop 60 but trending flat Chest x-ray IMPRESSION: Aeration of the lung similar to 01/30/2024 with small right pleural effusion and possibly mild pulmonary edema. O2 2 L keep sats greater than 94% (02/04/24 crackles to bilateral bases), Kyphosis EKG 91 beats/min. Rhythm is irregularly irregular. QRS interval is normal. QT interval is normal. No Q waves. T waves are Normal. No ST changes noted. Clinical impression: Atrial Fibrillation ECHO: COMMENTS: 1. NORMAL LEFT VENTRICULAR EJECTION FRACTION 50-55% WITH ATRIAL FIBRILLATION 2. LEFT ATRIAL ENLARGEMENT 3. SEVERE PULMONARY HYPERTENSION WITH RIGHT VENTRICULAR SYSTOLIC PRESSURE GREATER THAN 70 mmHg 4. RIGHT ATRIAL ENLARGEMENT 5. MODERATE TRICUSPID REGURGITATION 6. MILD MITRAL REGURGITATION/ AORTIC INSUFFICIENCY TECHNOLOGIST: MACK CLAUDIO Dictated By: Jacinto Patton 01/28/24 1435 Cardiology following 02/05/24 - started lasix and amiodarone 02/07/24 continued edema and a fib 02/10/2024 Bumex decreased to 1 mg yesterday; Bumex held for today (02/10/2024) Patient has an appointment with an EP MD on 02/15/2024 in [place], appointment with Dr. Sullivan on 02/16/2024 CKD unknown baseline Acute kidney injury likely secondary to prerenal Nephrology to consult, to adjust diuretic, Dr. Trent following Trend kidney function, minimal increase in creatinine today (02/04/24), creatinine just over 2 today, 02/06/24 creatinine trending down from 2 to 1.74 02/07/24 creatinine 1.83 today 02/09/2024 creatinine 2.89 02/10/2024 creatinine 2.80 Nephrology recommends liberal free fluids and increase p.o. intake bilateral thyroid nodules thyroid u/s (01/10): TI-RADS 5 (high suspicious) nodule in the right thyroid lobe measuring 1 cm. Several other smaller thyroid nodules noted bilaterally. check thyroid studies - TSH 4.27, free T4 1.32 f/u outpatient Hypertension seizure disorder, chronic Fibromyalgia/chronic pain hx breast cancer s/p mastectomy hx CVA/TIA confirm home meds, restart as appropriate Full code DVT home eliquis Diet cardiac Disposition Home independent prior <Nighat Ponce - Last Filed: 02/10/24 08:40> - Plan Pt seen and examined. I agree with the note by the CHEF'S ASSISTANT. Pt still has leg edema and positive fluid balance. Will continue amiodarone. Hold Bumex due to worsening renal function ( cr 2.8 <- 2.89 <- 2.61). Pt will f/u with EP at [place] next week for ablation therapy. <Adeola Hurt - Last Filed: 02/10/24 10:32>
--- NOTE | 2024-02-10 11:09 | P.PN ---
Subjective Date of Service: 02/10/24 Chief Complaint: Acute on chronic heart failure Subjective: Other (bedbound.) Physical Examination - Vital Signs Temperature: 98.0 F Blood Pressure: 128/86 Pulse: 74 Respirations: 16 Pulse Ox (%): 96 - Physical Exam General: Other (chronically ill-appearing) HEENT: Atraumatic, Normocephalic Neck: Supple, JVD not distended Respiratory: Other (symmetric chest expansion) Cardiovascular: No rubs, No murmurs Gastrointestinal: Soft and benign, No rebound Musculoskeletal: No clubbing Integumentary: No warmth Neurological: Other (nonfocal) Urinary: Other (no bladder distention) External genitalia: Deferred Rectal: Deferred - Studies Medications List Reviewed: Yes Assessment And Plan - Plan # ALESIA 2/2 CRS1, on CKD serum creatinine increased to 2.9, at 2.8 today Hold bumex [place] by mouth fluid intake Keep map greater than 65 monitor renal panel # Pulmonary hypertension TTE on 01/28/2024 showed normal EF 50-55%, left atrial enlargement, severe pulmonary hypertension with RVSP more than 70 mmHg On spironolactone Resumed bumex Do not limit by mouth fluid intake unless he develops hyponatremia < 130 mEq/L F/u urine chem # Hypertension Continue current medication regimen # Hyponatremia Mild Encourage by mouth solid food intake tid
[2024-02-11 05:32] LABS: Absolute Basophils 0.1 K/uL (0-0.5); Absolute Eosinophils 0.1 K/uL (0-0.5); Absolute Monocytes 0.6 K/uL (0.1-1.3); Absolute Neutrophil 5.5 K/uL (1.8-8.0); Eosinophils % 1.4 % (0-4.4); Hematocrit 36.8 % (36.0-45.0); Hemoglobin 12.3 g/dL (12.0-15.0); Lymphocytes % 14.2 % (15.3-44.8); MCH 30.4 pg (27.0-35.0); MCHC 33.5 g/dL (32.0-36.0); MCV 90.7 fL (80-100); MPV 7.9 fL (7.6-11.3); Monocytes % 8.2 % (3.3-12.3); Neutrophils % 75.2 % (41.7-73.7); Nucleated Red Blood Cells % 0.2 % (0-0); Platelets 263 thou/uL (152-406); RBC Red Blood Cell Count 4.06 M/uL (3.86-4.86); Red Cell Distribution Width 17.2 % (12.1-15.2)
[2024-02-11 05:52] LABS: Anion Gap 10.6 mEq/L (5.0-15.0); Potassium 4.6 mEq/L (3.5-5.1)
--- NOTE | 2024-02-11 09:28 | P.PN ---
Date of Service: 02/11/24 subjective 93% on room air, mild lower extremity edema Out of bed to chair, Review of Systems 10-point ROS is otherwise unremarkable As per HPI Physical Examination - Vital Signs Reviewed - Physical Exam General: Alert, no acute distress noted, HEENT: Atraumatic, Normocephalic, PERRLA Neck: Supple Respiratory: Normal air movement, Cardiovascular: Edema, Irregular heart rate/rhythm Capillary refill: <2 Seconds Gastrointestinal: Soft and benign Musculoskeletal: No clubbing Integumentary: No rashes Neurological: Normal speech, Normal tone, Normal affect Assessment And Plan - Plan Congestive heart failure (CHF) NSTEMI Pulmonary edema Acute hypoxic respiratory failure secondary to decompensated heart failure Severe pulmonary hypertension paroxysmal a-fib on anticoagulation BNP 97640, troponin 59.2 02/05/24 - trop 60 but trending flat Chest x-ray IMPRESSION: Aeration of the lung similar to 01/30/2024 with small right pleural effusion and possibly mild pulmonary edema. O2 2 L keep sats greater than 94% (02/04/24 crackles to bilateral bases), Kyphosis EKG 91 beats/min. Rhythm is irregularly irregular. QRS interval is normal. QT interval is normal. No Q waves. T waves are Normal. No ST changes noted. Clinical impression: Atrial Fibrillation ECHO: COMMENTS: 1. NORMAL LEFT VENTRICULAR EJECTION FRACTION 50-55% WITH ATRIAL FIBRILLATION 2. LEFT ATRIAL ENLARGEMENT 3. SEVERE PULMONARY HYPERTENSION WITH RIGHT VENTRICULAR SYSTOLIC PRESSURE GREATER THAN 70 mmHg 4. RIGHT ATRIAL ENLARGEMENT 5. MODERATE TRICUSPID REGURGITATION 6. MILD MITRAL REGURGITATION/ AORTIC INSUFFICIENCY TECHNOLOGIST: MACK CLAUDIO Dictated By: Jacinto Patton 01/28/24 1435 Cardiology following 02/05/24 - started lasix and amiodarone 02/07/24 continued edema and a fib 02/10/2024 Bumex decreased to 1 mg yesterday; Bumex held for today (02/10/2024) Patient has an appointment with an EP MD on 02/15/2024 in [place], appointment with Dr. Sullivan on 02/16/2024 CKD unknown baseline Acute kidney injury likely secondary to prerenal Hyponatremia Nephrology to consult, to adjust diuretic, Dr. Trent following Trend kidney function, minimal increase in creatinine today (02/04/24), creatinine just over 2 today, 02/06/24 creatinine trending down from 2 to 1.74 02/07/24 creatinine 1.83 today 02/09/2024 creatinine 2.89 02/10/2024 creatinine 2.80 Nephrology recommends liberal free fluids and increase p.o. intake bilateral thyroid nodules thyroid u/s (01/10): TI-RADS 5 (high suspicious) nodule in the right thyroid lobe measuring 1 cm. Several other smaller thyroid nodules noted bilaterally. check thyroid studies - TSH 4.27, free T4 1.32 f/u outpatient Bedbound Supportive care turn every 2 hours Hypertension seizure disorder, chronic Fibromyalgia/chronic pain hx breast cancer s/p mastectomy hx CVA/TIA confirm home meds, restart as appropriate Full code DVT home eliquis Diet cardiac Disposition pending hospital course, home independent prior <Jeana Ramirez - Last Filed: 02/11/24 18:23> Pt seen and examined. I agree with the note by the [employer]. Pt still has leg edema and positive fluid balance. Will continue amiodarone. Holding Bumex due to worsening renal function ( cr 2.4<-2.8 <- 2.89 <- 2.61). Cr is now trending down. Pt denies any weakness or SOB. Will dc once cleared by Cradiology. Pt will f/u with EP at [place] next week for ablation therapy. <Adeola Hurt - Last Filed: 02/11/24 18:29>
--- NOTE | 2024-02-11 16:53 | P.PN ---
Subjective Date of Service: 02/11/24 Chief Complaint: Acute on chronic heart failure Subjective: No new changes, No C/O voiced, Tolerating diet, Ambulating, Improving Review of Systems 10-point ROS is otherwise unremarkable Physical Examination - Vital Signs Temperature: 97.3 F Blood Pressure: 123/88 Pulse: 96 Respirations: 16 Pulse Ox (%): 94 - Physical Exam General: Alert, In no apparent distress HEENT: Atraumatic, PERRLA, EOMI Neck: Supple, JVD not distended Respiratory: Clear to auscultation bilaterally, Normal air movement Cardiovascular: Edema, Irregular heart rate/rhythm Gastrointestinal: Normal bowel sounds, No tenderness Musculoskeletal: No tenderness Integumentary: No rashes Neurological: Normal speech, Normal tone, Normal affect Lymphatics: No axilla or inguinal lymphadenopathy - Studies Medications List Reviewed: Yes Assessment And Plan - Current Problems (Diagnosis) (1) Acute on chronic diastolic heart failure Current Visit: Yes Status: Acute Plan: there was significant increase in patient creatinine but has been stable Bumex lowered to 1 mg daily (discharge on that) BMP to be ordered for Sunday. Patient will follow up with me on and will adjust Bumex accordingly Patient need to follow up with Nephrology too continue lopressor (2) Atrial fibrillation Current Visit: Yes Status: Acute Plan: currently rate controlled, recently tried DCCV COLLINS but unable to intubate, Tele reviewed with some pauses but they are all short. continue amiodarone 200 mg po BID continue Eliquis 2.5 mg po BID refer to EP for ablation as outpatient (3) Type 2 LA (myocardial infarction) Current Visit: Yes Status: Acute Plan: mild leak on troponin with no delta, most likely secondary to CHF and AF outpatient stress test.
--- NOTE | 2024-02-11 18:17 | P.DS ---
Admission Date: 02/03/24 Discharge Date: 02/11/24 Disposition: ROUTINE DISCHARGE Discharge Condition: GOOD Reason for Admission: Acute on chronic heart failure Brief History of Present Illness: Patient is 78 years of age with a history of CKD, congestive heart failure presents to the emergency room with shortness of breath. She reports recently discharged with the same symptoms diagnosis. She reports failed cardioversion with Dr. Patton. Complaining of worsening dyspnea and lower extremity edema that started after being discharged. She reports orthopnea, shortness of breath with exertion, nontender chest pain. She denies fever, cough, dizziness, diarrhea. 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 Patton apparently she had seen Dr. Patton. She reports medication compliance, plan to admit for NSTEMI, acute on chronic heart failure, pulmonary edema. Hypoxia, with cardiology to consult. - Physical Exam General: Alert, In no apparent distress, Oriented x3 HEENT: Atraumatic, Normocephalic, PERRLA Neck: Supple Respiratory: Normal air movement, Expiratory wheezes Cardiovascular: Edema, Irregular heart rate/rhythm, +2 LE edema Capillary refill: <2 Seconds Gastrointestinal: Soft and benign Musculoskeletal: No clubbing Integumentary: No rashes Neurological: Normal speech, Normal tone, Normal affect Lymphatics: No axilla or inguinal lymphadenopathy External genitalia: Deferred Hospital Course: 78 years of age with a history of CKD, congestive heart failure presents to the emergency room with shortness of breath. She reports recently discharged with the same symptoms diagnosis. She reports failed cardioversion with Dr. Patton. Noted to have acute on chronic heart failure, pulmonary edema, elevated troponin, stable to discharge home, follow-up with cardiology on Sunday to repeat BMP, follow-up with nephrology this week. Condition improved with cardi ology consult, nephrology following Patient tolerating diet, stable for discharge to home with follow-up appointment with primary care physician. Discharge medications Bumex 1 mg daily, check daily weight at home, keep log for physician, follow-up with BMP with Dr. Howard on Sunday continue amiodarone 200 mg po BID continue Eliquis 2.5 mg po BID Patient will follow up with me on and will adjust Bumex accordingly Dr Sullivan Patient need to follow up with Nephrology too continue lopressor refer to EP for ablation as outpatient Elevated troponin-likely secondary to recent outpatient testing mild leak on troponin with no delta, most likely secondary to CHF and AF outpatient stress test. Continue home medicines as previously prescribed GOAL: Clear understanding of disease process INSTRUCTIONS: Physician Discharge Instructions: -Follow-up with PCP in 1 to 2 weeks -Please call Dr. Cazares at [phone] if any questions regarding hospital stay -Please call nursing station at [phone] if any nursing or medication questions -Return to the emergency room if symptoms worsen Diet: ADA, low sodium Activity: Fall precautions Vital Signs/Physical Exam: Temp Pulse Resp BP Pulse Ox 97.3 F 96 H 16 123/88 94 02/11/24 16:52 02/11/24 16:52 02/11/24 16:52 02/11/24 16:52 02/11/24 16:52 Laboratory Data at Discharge: WBC 7.30 thou/uL (4.3-10.9) 02/11/24 05:14 Hgb 12.3 g/dL (12.0-15.0) D 02/11/24 05:14 Hct 36.8 % (36.0-45.0) 02/11/24 05:14 Plt Count 263 thou/uL (152-406) 02/11/24 05:14 Sodium 135 mEq/L (136-145) L 02/11/24 05:14 Potassium 4.6 mEq/L (3.5-5.1) 02/11/24 05:14 BUN 84 mg/dL (7-18) H 02/11/24 05:14 Creatinine 2.47 mg/dL (0.55-1.02) H 02/11/24 05:14 Glucose 120 mg/dL (74-106) H 02/11/24 05:14 Magnesium 2.3 mg/dL (1.6-2.4) 02/07/24 06:26 Total Bilirubin 1.2 mg/dL (0.2-1.0) H 02/09/24 08:39 AST 43 U/L (15-37) H 02/09/24 08:39 ALT 23 U/L (13-56) 02/09/24 08:39 Alkaline Phosphatase 107 U/L (45-117) 02/09/24 08:39 Home Medications: Ezetimibe 10 mg PO DAILY 30 Days #30 tablet 11/17/21 Amiodarone HCl [Cordarone*] 200 mg PO DAILY 01/26/24 Apixaban [Eliquis *] 2.5 mg PO BID 01/26/24 Gabapentin [Neurontin*] 100 mg PO BEDTIME 01/26/24 Metoprolol Tartrate [Lopressor*] 50 mg PO BID 01/26/24 cloNIDine [Clonidine] 1 each TD EVERY 7TH DAY 01/26/24 Tramadol HCl [Ultram] 50 mg PO DAILYPRN PRN 01/28/24 Amiodarone HCl [Cordarone*] 200 mg PO BID tab 02/11/24 Apixaban [Eliquis *] 2.5 mg PO BID 02/11/24 Bumetanide [Bumex] 1 mg PO DAILY 30 Days #30 tab 02/11/24 Hydrocodone 5/APAP 325 [[place] 5/325*] 1 tab PO Q4H PRN tab 02/11/24 New Medications: Bumetanide [Bumex] 1 mg PO DAILY 30 Days #30 tab Diet: AHA Activity: Fall precautions Followup: Darian Sullivan MD [ACTIVE - CAN ADMIT] - Jess Barr MD [Primary Care Provider] - Anne Hall MD [OUTSIDE PHYSICIAN] - Time spent managing pt's care (in minutes): 45
[2024-02-11] MEDS ORDERED: METOLAZONE 2.5 MG TABLET PO SCH (21:00)
[2024-02-11] MEDS: METOLAZONE 5 MG TABLET PO SCH (21:02)
--- NOTE | 2024-02-12 01:36 | PN ---
Date of Progress Note: 02/11/2024 Chief Complaint: Acute on chronic heart failure, acute on chronic kidney injury, fluid overload, emilia sarca. Review of Systems: The patient denies chest pain, palpitation. She has dyspnea on exertion. Leg edema has not improved significantly. Objective: Vital Signs: Blood pressure is 128/86, heart rate 74, respiratory rate 16, SpO2 96%. General: The patient appears chronically ill. HEENT: Atraumatic, normocephalic. Neck: Supple. JVD distended. Cardiovascular: S1, S2. No pericardial friction rub. Abdomen: Soft, benign. Extremities: Edema present in both legs. Impression And Plan: 1.Acute on chronic kidney injury, cardiorenal syndrome. The patient has underlying chronic kidney d isease. Serum creatinine level increased to 2.9. Bumex was decreased and spironolactone was started . The patient will continue low-sodium diet. Plan is to add metolazone for diuretic effect as neede d. 2.Pulmonary hypertension. TTE on January 28, 2024 showed ejection fraction of 50% to 55%. Left atria l enlargement, severe pulmonary hypertension with RVSP greater than 70 mmHg. The patient will contin ue spironolactone. Monitor potassium level and sodium level. Bumex dose was resumed. Continue p.o. fluid intake and low-sodium diet. Monitor electrolytes closely. 3.Hypertension. Continue current regimen. 4.Hyponatremia, mild. Encourage by mouth solid food intake and protein intake. 5.Leg edema due to congestive heart failure and pulmonary hypertension. Further recommendation from Cardiology. Continue diuretic. EB/MODL Voice ID: [id number] Report ID: [id number]
[2024-02-12 05:25] LABS: Absolute Basophils 0.1 K/uL (0-0.5); Absolute Lymphocytes (CBC) 0.9 K/uL (0.7-4.9); Absolute Monocytes 0.6 K/uL (0.1-1.3); Eosinophils % 0.6 % (0-4.4); Hematocrit 37.9 % (36.0-45.0); Hemoglobin 12.5 g/dL (12.0-15.0); Lymphocytes % 13.9 % (15.3-44.8); MCH 29.8 pg (27.0-35.0); MCHC 32.9 g/dL (32.0-36.0); MCV 90.6 fL (80-100); MPV 7.8 fL (7.6-11.3); Monocytes % 9.1 % (3.3-12.3); Neutrophils % 75.4 % (41.7-73.7); Nucleated Red Blood Cells % 0.2 % (0-0); Platelets 247 thou/uL (152-406); RBC Red Blood Cell Count 4.18 M/uL (3.86-4.86); Red Cell Distribution Width 17.4 % (12.1-15.2)
[2024-02-12 05:38] LABS: Anion Gap 7.9 mEq/L (5.0-15.0); Potassium 4.9 mEq/L (3.5-5.1)
[2024-02-12 05:39] LABS: Magnesium 2.2 mg/dL (1.6-2.4); Phosphorus 4.3 mg/dL (2.5-4.9)
[2024-02-12] MEDS: BUMETANIDE 1 MG TABLET PO SCH (08:10)
[2024-02-12 08:11] VITALS: BP 125/76
[2024-02-12 08:12] VITALS: TEMP 97
[2024-02-12 08:29] VITALS: O2SAT 92
[2024-02-12] MEDS ORDERED: BUMETANIDE 1 MG/4 ML VIAL IV SCH (09:00)
== END 2024-02-12 10:26 | disposition home or self-care (01) | DRG 280 ==
LOC: ER 15:00 → ERHOLD 17:13 → 2ND 17:43
PROVIDERS: ADMIT Hospitalist; ATTEND Hospitalist
DX: I13.0 Hypertensive heart and chronic kidney disease with heart failure and stage 1 through stage 4 chronic kidney disease, or unspecified chronic kidney disease (principal); I50.33 Acute on chronic diastolic (congestive) heart failure; I21.A1 Myocardial infarction type 2; J96.01 Acute respiratory failure with hypoxia; N17.0 Acute kidney failure with tubular necrosis; R64 Cachexia; N18.4 Chronic kidney disease, stage 4 (severe); E87.1 Hypo-osmolality and hyponatremia; I48.0 Paroxysmal atrial fibrillation; E04.1 Nontoxic single thyroid nodule; M79.7 Fibromyalgia; E87.5 Hyperkalemia; I08.3 Combined rheumatic disorders of mitral, aortic and tricuspid valves; I27.20 Pulmonary hypertension, unspecified; G40.909 Epilepsy, unspecified, not intractable, without status epilepticus; Z60.2 Problems related to living alone; Z88.6 Allergy status to analgesic agent; Z88.5 Allergy status to narcotic agent; Z88.7 Allergy status to serum and vaccine; Z85.3 Personal history of malignant neoplasm of breast; Z88.8 Allergy status to other drugs, medicaments and biological substances; Z74.01 Bed confinement status; Z68.26 Body mass index [BMI] 26.0-26.9, adult; Z79.01 Long term (current) use of anticoagulants; Z90.10 Acquired absence of unspecified breast and nipple; Z90.49 Acquired absence of other specified parts of digestive tract; Z86.73 Personal history of transient ischemic attack (TIA), and cerebral infarction without residual deficits; Z79.899 Other long term (current) drug therapy; Z90.710 Acquired absence of both cervix and uterus; Z91.199 Patient's noncompliance with other medical treatment and regimen due to unspecified reason
CPT/HCPCS: 36415; 71045; 76770; 80048; 80053; 81001; 82570; 82947; 83735; 83880; 83935; 84100; 84132; 84156; 84300; 84439; 84443; 84484; 85025; 93005; 94010; 96374; 97116; 97161; 97530; 99285; J1940; J2270; J2405

== ENCOUNTER 2024-03-03 13:48 | Inpatient (IN) | payer OTHER ==
--- NOTE | 2024-03-03 14:31 | RAD REPORT ---
EXAM DESCRIPTION: CT - Head Brain Wo Cont - 03/03/2024 2:18 pm CLINICAL HISTORY: Leg weakness COMPARISON: 2022 TECHNIQUE: Computed axial tomography of the head was obtained. IV contrast was not requested. All CT scans are performed using dose optimization technique as appropriate and may include automated exposure control or mA/KV adjustment according to patient size. FINDINGS: An intracranial bleed is not seen The ventricles are normal in caliber No extra-axial fluid collection is noted. Mild to moderate cerebral atrophy Significant beam hardening artifact obscures evaluation of portions of cerebellum and brainstem. . Fluid within the sinuses/ mastoids is not seen. IMPRESSION: Significant beam hardening artifact obscures evaluation of portions of cerebellum and br ainstem. No acute abnormality is displayed If patient's symptoms persist MRI of the brain would be recommended
--- NOTE | 2024-03-03 14:36 | RAD REPORT ---
EXAM DESCRIPTION: [place] Single View03/03/2024 2:10 pm CLINICAL HISTORY: Weakness COMPARISON: January 2024 FINDINGS: A few areas scarring or subsegmental atelectasis are present within the lungs. Remainder of the lungs appear clear. Chronic elevation right hemidiaphragm Moderate cardiomegaly
[2024-03-03 15:07] LABS: Absolute Basophils 0.1 K/uL (0-0.5); Absolute Monocytes 0.5 K/uL (0.1-1.3); Absolute Neutrophil 4.1 K/uL (1.8-8.0); Eosinophils % 0.7 % (0-4.4); Hematocrit 36.6 % (36.0-45.0); Lymphocytes % 17.7 % (15.3-44.8); MCH 29.4 pg (27.0-35.0); MCHC 32.8 g/dL (32.0-36.0); MCV 89.9 fL (80-100); MPV 7.6 fL (7.6-11.3); Monocytes % 8.9 % (3.3-12.3); Neutrophils % 71.7 % (41.7-73.7); Nucleated Red Blood Cells % 0.1 % (0-0); Platelets 235 thou/uL (152-406); RBC Red Blood Cell Count 4.08 M/uL (3.86-4.86); Red Cell Distribution Width 16.7 % (12.1-15.2)
[2024-03-03 15:12] LABS: PT Prothrombin Time 17.4 SECONDS (9.4-12.5); Protime INR 1.57
[2024-03-03 15:23] LABS: Specific Gravity 1.007 (1.005-1.030); Sqamous Epithelial <5 /HPF (None Seen); Urine Bacteria None Seen /HPF (<20); Urine Bilirubin NEGATIVE (Negative); Urine Blood Negative (Negative); Urine Clarity Clear (Clear); Urine Color Colorless (Yellow); Urine Culture Reflex Order NOT NEEDED; Urine Glucose NEGATIVE (Negative); Urine Ketones NEGATIVE (Negative); Urine Micro Reflex YN NO BILL MICROSCOPIC; Urine Mucus Slight /HPF (None Seen); Urine Nitrite NEGATIVE (Negative); Urine Protein NEGATIVE (Negative); Urine RBC <5 /HPF (None Seen); Urine Urobilinogen Normal (Normal); Urine WBC <5 /HPF (<5)
[2024-03-03 15:26] LABS: Albumin 2.9 g/dL (3.4-5.0); Albumin/Globulin Ratio 0.9 (1.1-1.8); Anion Gap 10.3 mEq/L (5.0-15.0); Bilirubin Direct 0.4 mg/dL (0-0.2); Bilirubin Indirect, Calculated 0.6 mg/dL (0.2-0.8); Globulin 3.2 g/dL (2.3-3.5); Magnesium 1.9 mg/dL (1.6-2.4); Potassium 3.3 mEq/L (3.5-5.1); Protein, Total 6.1 g/dL (6.4-8.2)
[2024-03-03 15:38] LABS: SARS-CoV-2 Antigen CONTROL BLUE LINE VIS/BG OK; SARS-CoV-2 Antigen Rapid Res Negative (Negative)
[2024-03-03 15:39] LABS: Troponin High Sensitivity 59.9 pg/mL (<58.9)
[2024-03-03] MEDS ORDERED: FUROSEMIDE 40 MG/4 ML VIAL ONE (16:15)
--- NOTE | 2024-03-03 16:23 | ER ---
Nurse's Notes [facility] Name: Cesar Mcfarland Age: 78 yrs Sex: Female : 1945 Arrival Date: 03/03/2024 Time: 13:48 Bed 15 Private MD: Diagnosis: CHF exacerbation, generalized weakness Presentation: 03/03 14:04 Chief complaint: Patient states: Legs have been progressively getting weaker since cm10 January. Pt's daughter states that over the last 4 days patient has been falling more because "her legs are giving out". Coronavirus screen: Client denies travel out of the [place] in the last 14 days. Ebola Screen: Patient denies travel to an Ebola-affected area in the 21 days before illness onset. No symptoms or risks identified at this time. Initial Sepsis Screen: Does the patient meet any 2 criteria? No. Patient's initial sepsis screen is negative. Does the patient have a suspected source of infection? No. Patient's initial sepsis screen is negative. Risk Assessment: Do you want to hurt yourself or someone else? Patient reports no desire to harm self or others. Onset of symptoms was March 03, 2024. 14:04 Method Of Arrival: Ambulatory cm10 14:04 Acuity: KRIS 3 cm10 Triage Assessment: 14:05 General: Appears in no apparent distress. comfortable, Behavior is calm, cooperative. cm10 Neuro: No deficits noted. Level of Consciousness is awake, alert, obeys commands, Oriented to person, place, time, situation, Appropriate for age. Historical: - Allergies: 14:03 Aggrenox; cm10 14:03 Demerol; cm10 14:03 Morphine; cm10 14:03 Tetanus Vaccines and Toxoid; cm10 14:03 Codeine; cm10 - Home Meds: 19:06 Eliquis 2.5 mg oral tablet 2 times per day [Active]; gabapentin 100 mg oral capsule 2 tl4 times per day [Active]; 19:07 levothyroxine oral [Active]; metolazone 2.5 mg oral tablet daily [Active]; metoprolol tl4 tartrate 50 mg Oral tablet 2 times per day [Active]; amiodarone 200 mg Oral tablet daily [Active]; Bumex 1 mg Oral 1 mg twice a day [Active]; ezetimibe 10 mg oral tablet daily [Active]; - PMHx: 14:03 Atrial fibrillation; breast cancer; Hypertensive disorder; Seizure; TIA; cm10 - PSHx: 14:03 Appendectomy; Cholecystectomy; hysterectomy; mastectomy; cm10 - Immunization history:: Adult Immunizations. - Infectious Disease History:: Denies. - Social history:: Smoking status: Patient denies any tobacco usage or history of. Screenin:09 [facility] ED Fall Risk Assessment (Adult) History of falling in the last 3 months, tl4 including since admission Yes- fall prone (multiple falls) (3 pts) Confusion or Disorientation No (0 pts) Intoxicated or Sedated No (0 pts) Impaired Gait No (0 pts) Mobility Assist Device Used Yes (1 pt) Altered Elimination No (0 pt) Score/Fall Risk Level 3 or more points = High Risk Oriented to surroundings, Maintained a safe environment, Educated pt \\T\\ family on fall prevention, incl call for assistance when getting out of bed, Assessed \\T\\ reinforced patient's understanding of fall precautions, Provided non-skid footwear, Hourly rounding (assess needs \\T\\ fall precautionary measures) done. Abuse screen: Denies threats or abuse. Denies injuries from another. Nutritional screening: No deficits noted. Tuberculosis screening: No symptoms or risk factors identified. Assessment: 15:06 General: Appears in no apparent distress. Behavior is calm, cooperative. Pain: Denies tl4 pain. Neuro: Level of Consciousness is awake, alert, obeys commands, Oriented to person, place, time, situation. Neuro: Reports weakness in right leg and left leg. Cardiovascular: Capillary refill < 3 seconds Patient's skin is warm and dry. Respiratory: Airway is patent Respiratory effort is even, unlabored, Respiratory pattern is regular, symmetrical, Breath sounds are clear bilaterally. GI: No signs and/or symptoms were reported involving the gastrointestinal system. : No signs and/or symptoms were reported regarding the genitourinary system. EENT: No signs and/or symptoms were reported regarding the EENT system. Derm: multiple skin tears to upper extremities from falls. All wounds appear to be healing without signs of infection. Musculoskeletal: No signs and/or symptoms reported regarding the musculoskeletal system. 16:52 Reassessment: Patient and/or family updated on plan of care and expected duration. Pain tl4 level reassessed. Patient is alert, oriented x 3, equal unlabored respirations, skin warm/dry/pink. Pt put on purewick due to lasix administration. Daughter verbalized questions regarding admission diagnosis and requested to speak with MD Egan. MD Egan acknowledged message. Pt repositioned. Pt requesting dinner. Message left for dietary. Will continue to monitor. Vital Signs: 14:04 BP 107 / 82; Pulse 74; Resp 16; Temp 96.9(IR); Pulse Ox 98% on R/A; Weight 60.78 kg; cm10 Height 4 ft. 11 in. ; Pain 0/10; 15:08 BP 108 / 85; Pulse 76; Resp 19; Pulse Ox 96% on R/A; tl4 15:30 BP 108 / 67; Pulse 75; Resp 15; Pulse Ox 97% on R/A; tl4 16:00 BP 108 / 77; Pulse 78; Resp 14; Pulse Ox 96% on R/A; tl4 16:30 BP 111 / 66; Pulse 74; Resp 16; Pulse Ox 95% ; tl4 17:00 BP 103 / 68; Pulse 74; Resp 18; Pulse Ox 98% on R/A; tl4 14:04 Body Mass Index 27.06 (60.78 kg, 149.86 cm) cm10 14:04 Pain Scale: Adult cm10 ED Course: 13:50 Patient arrived in ED. im 13:56 Lacey Egan MD is Attending Physician. sp3 14:05 Triage completed. cm10 14:05 Arm band placed on Patient placed in an exam room, on a stretcher, on pulse oximetry. cm10 14:12 XRAY Chest (1 view) In Process Unspecified. EDMS 14:19 CT Head Brain wo Cont In Process Unspecified. EDMS 15:06 Sandip Rajput, RN is Primary Nurse. tl4 15:10 Patient has correct armband on for positive identification. Placed in gown. Bed in low tl4 position. Call light in reach. Side rails up X2. Adult w/ patient. Provided Education on: ed process, call conner. Client placed on continuous cardiac and pulse oximetry monitoring. NIBP monitoring applied. telemetry monitor on. Door closed. Noise minimized. Lights dimmed. Moved to private room. Warm blanket given. 15:10 No provider procedures requiring assistance completed. Initial lab(s) drawn, by me, tl4 sent to lab. Urine collected: clean catch specimen, clear, COVID swab sent to lab. Flu and/or RSV swab sent to lab. Inserted saline lock: 22 gauge in right forearm, using aseptic technique. Blood collected. Flushed with 10 mL NS. 15:11 SARS RAPID Sent. tl4 15:11 Flu Sent. tl4 15:11 UAM Sent. tl4 15:11 Lactate w/ 2H reflex if indic. Sent. tl4 15:11 Basic Metabolic Panel Sent. tl4 15:11 LFT's Sent. tl4 15:11 Magnesium Sent. tl4 15:11 NT PRO-BNP Sent. tl4 15:11 PT-INR Sent. tl4 15:11 Troponin HS Sent. tl4 15:38 Notified ED physician of a critical lab result(s). TROP 59.9. tl4 15:48 EKG done, by ED staff, reviewed by Lacey Egan MD. cc6 16:22 Adeola Hurt MD is Hospitalizing Provider. sp3 20:38 Patient admitted, IV remains in place. hb Administered Medications: 16:40 Drug: Furosemide IVP 40 mg IVP once; give over 2 minutes Route: IVP; Infused Over: 2 tl4 mins; Site: right forearm; 17:23 Follow up: Response: No adverse reaction tl4 Medication: 15:09 VIS not applicable for this client. tl4 Outcome: 16:22 Decision to Hospitalize by Provider. sp3 20:38 Admitted to Med/surg accompanied by tech, via stretcher, room 420, hb 20:38 Condition: good 20:38 Instructed on the need for admit, 20:38 Patient left the ED. hb Signatures: Dispatcher [employer] EDMS Milagros Carvalho RN RN Lacey Suero MD MD sp3 Michaela Tuttle Clarissa RN RN cm10 Sandip Rajput RN RN tl4 Latisha Mills cc6 Corrections: (The following items were deleted from the chart) 14:30 14:30 General: Appears tl4 tl4 20:38 20:37 IV discontinued, intact, bleeding controlled, No redness/swelling at site. hb Pressure dressing applied, hb 20:38 20:37 Discharged to home ambulatory, hb hb 20:38 20:37 Condition: good hb hb 20:38 20:37 Discharge instructions given to patient, family, Instructed on discharge hb instructions, follow up and referral plans. medication usage, Demonstrated understanding of instructions, follow-up care, medications, Prescriptions given X 3, hb
--- NOTE | 2024-03-03 16:23 | EDPHYS ---
Physician Documentation [facility] Name: Cesar Mcfarland Age: 78 yrs Sex: Female : 1945 Arrival Date: 03/03/2024 Time: 13:48 Bed 15 Private MD: ED Physician Lacey Egan HPI: 03/03 14:09 This 78 yrs old Female presents to ER via Ambulatory with complaints of General sp3 Weakness. 14:09 78-year-old female with history of atrial fibrillation currently on Eliquis, breast sp3 cancer, hypertension, seizure, prior TIA presents to the ED with chief complaint generalized weakness and "my legs keep giving out on me". She keeps having to do a slow ground-level fall when this occurs. Symptoms have been progressing over the last 48 hours to the point where she is having to come to the emergency department. She denies any serious injury including head injury, neck pain, chest pain, shortness of breath, abdominal pain, vomiting, diarrhea, or any other focal weakness. She also states that both her legs are numb from time to time.. Historical: - Allergies: 14:03 Aggrenox; cm10 14:03 Demerol; cm10 14:03 Morphine; cm10 14:03 Tetanus Vaccines and Toxoid; cm10 14:03 Codeine; cm10 - Home Meds: 19:06 Eliquis 2.5 mg oral tablet 2 times per day [Active]; gabapentin 100 mg oral capsule 2 tl4 times per day [Active]; 19:07 levothyroxine oral [Active]; metolazone 2.5 mg oral tablet daily [Active]; metoprolol tl4 tartrate 50 mg Oral tablet 2 times per day [Active]; amiodarone 200 mg Oral tablet daily [Active]; Bumex 1 mg Oral 1 mg twice a day [Active]; ezetimibe 10 mg oral tablet daily [Active]; - PMHx: 14:03 Atrial fibrillation; breast cancer; Hypertensive disorder; Seizure; TIA; cm10 - PSHx: 14:03 Appendectomy; Cholecystectomy; hysterectomy; mastectomy; cm10 - Immunization history:: Adult Immunizations. - Infectious Disease History:: Denies. - Social history:: Smoking status: Patient denies any tobacco usage or history of. ROS: 14:15 Constitutional: Negative for fever, chills, and weight loss, Eyes: Negative for injury, sp3 pain, redness, and discharge, Neck: Negative for injury, pain, and swelling, Cardiovascular: Negative for chest pain, palpitations, and edema, Respiratory: Negative for shortness of breath, cough, wheezing, and pleuritic chest pain, Abdomen/GI: Negative for abdominal pain, nausea, vomiting, diarrhea, and constipation, Back: Negative for injury and pain, : Negative for injury, bleeding, discharge, and swelling, Skin: Negative for injury, rash, and discoloration, Psych: Negative for depression, anxiety, suicide ideation, homicidal ideation, and hallucinations, Allergy/Immunology: Negative for hives, rash, and allergies, Endocrine: Negative for neck swelling, polydipsia, polyuria, polyphagia, and marked weight changes, Hematologic/Lymphatic: Negative for swollen nodes, abnormal bleeding, and unusual bruising, 14:15 All other systems are negative, Exam: 14:15 Constitutional: This is a well developed, well nourished patient who is awake, alert, sp3 and in no acute distress. Head/Face: Normocephalic, atraumatic. Eyes: Pupils equal round and reactive to light, extra-ocular motions intact. Lids and lashes normal. Conjunctiva and sclera are non-icteric and not injected. Cornea within normal limits. Periorbital areas with no swelling, redness, or edema. Neck: Trachea midline, no thyromegaly or masses palpated, and no cervical lymphadenopathy. Supple, full range of motion without nuchal rigidity, or vertebral point tenderness. No Meningismus. Chest/axilla: Normal chest wall appearance and motion. Nontender with no deformity. No lesions are appreciated. Respiratory: Lungs have equal breath sounds bilaterally, clear to auscultation and percussion. No rales, rhonchi or wheezes noted. No increased work of breathing, no retractions or nasal flaring. Abdomen/GI: Soft, non-tender, with normal bowel sounds. No distension or tympany. No guarding or rebound. No evidence of tenderness throughout. Back: No spinal tenderness. No costovertebral tenderness. Full range of motion. Skin: Warm, dry with normal turgor. Normal color with no rashes, no lesions, and no evidence of cellulitis. Psych: Awake, alert, with orientation to person, place and time. Behavior, mood, and affect are within normal limits. 14:15 Neuro: Global weakness bilateral lower extremities. 2+ pitting edema also present. No focal deficits noted., 15:52 ECG was reviewed by the Attending Physician. EKG demonstrates atrial fibrillation with sp3 nonspecific interventricular blocks and nonspecific diffuse ST's ST changes Vital Signs: 14:04 BP 107 / 82; Pulse 74; Resp 16; Temp 96.9(IR); Pulse Ox 98% on R/A; Weight 60.78 kg; cm10 Height 4 ft. 11 in. ; Pain 0/10; 15:08 BP 108 / 85; Pulse 76; Resp 19; Pulse Ox 96% on R/A; tl4 15:30 BP 108 / 67; Pulse 75; Resp 15; Pulse Ox 97% on R/A; tl4 16:00 BP 108 / 77; Pulse 78; Resp 14; Pulse Ox 96% on R/A; tl4 16:30 BP 111 / 66; Pulse 74; Resp 16; Pulse Ox 95% ; tl4 17:00 BP 103 / 68; Pulse 74; Resp 18; Pulse Ox 98% on R/A; tl4 14:04 Body Mass Index 27.06 (60.78 kg, 149.86 cm) cm10 14:04 Pain Scale: Adult cm10 MDM: 13:57 Patient medically screened. sp3 14:15 Data reviewed: vital signs, nurses notes, old medical records, lab test result(s), EKG, sp3 radiologic studies. ED course: 78-year-old female with PMH above complex in nature currently on Eliquis for atrial fibrillation set for ablation procedure in [place] next week now presents to the ED with generalized weakness and bilateral lower extremity numbness from time to time. Differential diagnosis includes recurrent TIA, electrolyte abnormality, fatigue and muscle weakness, pedal edema increasing weight causing difficulty walking, among others. Workup will be broad include CT scan of the head, EKG, laboratory values, UA and general supportive care. Disposition pending workup and patient course with probable admission for observation.. 15:53 ED course: BNP elevated and Lasix given. Troponin at 59. Will admit and consult sp3 cardiology.. 03/03 13:58 Order name: Basic Metabolic Panel; Complete Time: 15:46 sp3 03/03 13:58 Order name: CBC with Diff; Complete Time: 15:46 sp3 03/03 13:58 Order name: LFT's; Complete Time: 15:46 sp3 03/03 13:58 Order name: Magnesium; Complete Time: 15:46 sp3 03/03 13:58 Order name: NT PRO-BNP; Complete Time: 15:46 sp3 03/03 13:58 Order name: PT-INR; Complete Time: 15:46 sp3 03/03 13:58 Order name: Troponin HS; Complete Time: 15:46 sp3 03/03 13:58 Order name: Lactate w/ 2H reflex if indic.; Complete Time: 15:46 sp3 03/03 13:58 Order name: UAM; Complete Time: 15:46 sp3 03/03 13:58 Order name: Flu; Complete Time: 15:46 sp3 03/03 13:58 Order name: SARS RAPID; Complete Time: 15:46 sp3 03/03 17:00 Order name: CBC with Automated Diff EDMS 03/03 17:00 Order name: CBC with Automated Diff EDMS 03/03 17:00 Order name: CBC with Automated Diff EDMS 03/03 17:00 Order name: CBC with Automated Diff EDMS 03/03 17:00 Order name: Comprehensive Metabolic Panel EDMS 03/03 17:00 Order name: Comprehensive Metabolic Panel EDMS 03/03 17:00 Order name: Comprehensive Metabolic Panel EDMS 03/03 17:00 Order name: Comprehensive Metabolic Panel EDMS 03/03 17:00 Order name: Lipid Profile EDMS 03/03 17:00 Order name: Lipid Profile EDMS 03/03 17:00 Order name: Magnesium EDMS 03/03 17:00 Order name: Magnesium EDMS 03/03 17:00 Order name: Magnesium EDMS 03/03 17:00 Order name: Magnesium EDMS 03/03 17:00 Order name: Phosphorus EDMS 03/03 17:00 Order name: Phosphorus EDMS 03/03 17:00 Order name: Phosphorus EDMS 03/03 17:00 Order name: Phosphorus EDMS 03/03 17:00 Order name: Troponin High Sensitivity EDMS 03/03 17:00 Order name: Troponin High Sensitivity EDMS 03/03 17:00 Order name: Troponin High Sensitivity EDMS 03/03 17:00 Order name: Troponin High Sensitivity EDMS 03/03 17:00 Order name: Urinalysis w/ reflexes EDNM 03/03 13:58 Order name: XRAY Chest (1 view); Complete Time: 14:46 sp3 03/03 14:08 Order name: CT Head Brain wo Cont; Complete Time: 14:46 sp3 03/03 13:58 Order name: EKG; Complete Time: 13:59 sp3 03/03 17:00 Order name: CONS Physician Consult EDNM 03/03 13:58 Order name: Cardiac monitoring; Complete Time: 15:11 sp3 03/03 13:58 Order name: EKG - Nurse/Tech; Complete Time: 15:48 sp3 03/03 13:58 Order name: IV Saline Lock; Complete Time: 15:11 sp3 03/03 13:58 Order name: Labs collected and sent; Complete Time: 15:11 sp3 03/03 13:58 Order name: O2 Per Protocol; Complete Time: 15:11 sp3 03/03 13:58 Order name: O2 Sat Monitoring; Complete Time: 15:11 sp3 Administered Medications: 16:40 Drug: Furosemide IVP 40 mg IVP once; give over 2 minutes Route: IVP; Infused Over: 2 tl4 mins; Site: right forearm; 17:23 Follow up: Response: No adverse reaction tl4 Disposition Summary: 03/03/24 16:22 Hospitalization Ordered Notes: Hospitalization Status: Inpatient Admission sp3 Provider: Adeola Hurt sp3 Condition: Stable sp3 Problem: an acute exacerbation sp3 Symptoms: have worsened sp3 Bed/Room Type: Standard sp3 Location: Telemetry/MedSurg (Inpatient)(03/03/24 18:48) Room Assignment: 420(03/03/24 18:48) bd Diagnosis - CHF exacerbation, generalized weakness sp3 Forms: - Medication Reconciliation Form sp3 - SBAR form sp3 - Leadership Thank You Letter sp3 Signatures: Dispatcher [employer] [facility] [place]ham Lacey Egan MD MD sp3 Ailyn Michelle RN RN cm10 Sandip Rajput RN RN tl4 Corrections: (The following items were deleted from the chart) 15:11 13:58 [place] ordered. sp3 tl4 17:21 16:22 Telemetry/MedSurg (Inpatient) sp3 bd 17:21 16:22 sp3 bd 18:48 17:21 [facility] ER HOLD bd bd 18:48 17:21 ERHOLD- bd bd
--- NOTE | 2024-03-03 17:09 | P.HP ---
Certification for Inpatient Patient admitted to: Inpatient With expected LOS: >2 Midnights Patient will require the following post-hospital care: Prison Practitioner: I am a practitioner with admitting privileges, knowledge of patient current condition, hospital course, and medical plan of care. Services: Services provided to patient in accordance with Admission requirements found in Title 42 Section 412.3 of the Code of Federal Regulations <Gudelia Carey - Last Filed: 03/03/24 18:04> Patient History Date of Service: 03/03/24 Reason for admission: Decompensated CHF, weakness History of Present Illness: Ms. Mcfarland is a 78-year-old female with a past medical history of atrial fibrillation with failed attempt at cardioversion currently on Eliquis, breast cancer, hypertension, multiple recent admissions, and generalized weakness. She has had progressive weakness over the last 48 hours, she denies any specific trauma areas, just states both legs are numb from time to time. Vital signs in the emergency room are blood pressure 107/82, pulse 74, respirations 16, temp 97, SpO2 98% on room air. On patient's previous admission on 02/03/2024, she was noted to have a mildly elevated troponin likely secondary to CHF and A-fib. She was seen by Dr. Sullivan and Dr. Hall. We will continue their recommendations on this admission, get PT evaluation, and discuss SNF placement with Ms. Mcfarland. Home medications list reviewed: Yes - Past Medical/Surgical History Has patient received pneumonia vaccine in the past: Yes Diabetic: No -: TIA/CVA -: Afib -: HTN -: Sz-hypoglycemia -: Fibromyalgia/chronic pain -: History of breast cancer treated in 2002 -: Madiha/Appy/hysterectomy -: hernia repair -: mastectomy with implants and removal Psychosocial/ Personal History: Pt lives at home, alone. - Family History Father -: Heart disease, Stroke Mother -: Heart disease, Stroke - Social History Smoking Status: Unknown if ever smoked Alcohol use: No CD- Drugs: No Caffeine use: Yes Place of Residence: Home <Gudelia Carey - Last Filed: 03/03/24 18:04> Date of Service: 03/03/24 <Adeola Hurt - Last Filed: 03/03/24 21:31> Allergies aspirin [From Aggrenox] Allergy (Verified 11/15/21 00:36) Hives/Rash dipyridamole [From Aggrenox] Allergy (Verified 11/15/21 00:36) Hives/Rash meperidine [From Demerol] Allergy (Verified 11/15/21 00:36) Hives/Rash morphine Allergy (Verified 11/15/21 00:36) Hives/Rash Home Medications: Ezetimibe 10 mg PO DAILY 30 Days #30 tablet 11/17/21 Amiodarone HCl [Cordarone*] 200 mg PO DAILY 01/26/24 Apixaban [Eliquis *] 2.5 mg PO BID 01/26/24 Gabapentin [Neurontin*] 100 mg PO BEDTIME 01/26/24 Metoprolol Tartrate [Lopressor*] 50 mg PO BID 01/26/24 cloNIDine [Clonidine] 1 each TD EVERY 7TH DAY 01/26/24 Tramadol HCl [Ultram] 50 mg PO DAILYPRN PRN 01/28/24 Amiodarone HCl [Cordarone*] 200 mg PO BID tab 02/11/24 Apixaban [Eliquis *] 2.5 mg PO BID 02/11/24 Bumetanide [Bumex] 1 mg PO DAILY 30 Days #30 tab 02/11/24 Hydrocodone 5/APAP 325 [[place] 5/325*] 1 tab PO Q4H PRN tab 02/11/24 Review of Systems 10-point ROS is otherwise unremarkable General: Weakness, Malaise, As per HPI Cardiovascular: Orthopnea, Other (Generalized weakness with slow ground-level falls), As per HPI Musculoskeletal: Other (Leg weakness) Neurological: Weakness <Gudelia Carey - Last Filed: 03/03/24 18:04> Physical Examination - Physical Exam General: Alert, In no apparent distress, Oriented x3 HEENT: Atraumatic, Normocephalic Neck: Supple Respiratory: Normal air movement Cardiovascular: Normal pulses, Irregular heart rate/rhythm Capillary refill: <2 Seconds Gastrointestinal: Normal bowel sounds Musculoskeletal: Other (shaky and weak to lower L>R extremities) Integumentary: No rashes Neurological: Normal speech, Normal affect, Abnormal strength Lymphatics: No axilla or inguinal lymphadenopathy External genitalia: Deferred Rectal: Deferred - Studies Laboratory Data (last 24 hrs) 03/03/24 03/03/24 03/03/24 14:49 14:49 14:49 WBC 5.80 Hgb 12.0 Hct 36.6 Plt Count 235 PT 17.4 H INR 1.57 Sodium 137 Potassium 3.3 L BUN 69 H Creatinine 2.46 H Glucose 101 Magnesium 1.9 Total Bilirubin 1.0 AST 43 H ALT 24 Alkaline Phosphatase 107 Microbiology Data (last 24 hrs): 03/03/24 14:39 Nasopharnyx Influenza Type A Antigen Screen - Final 03/03/24 14:39 Nasopharnyx Influenza Type B Antigen Screen - Final <Gudelia Carey - Last Filed: 03/03/24 18:04> - Studies Laboratory Data (last 24 hrs) 03/03/24 03/03/24 03/03/24 14:49 14:49 14:49 WBC 5.80 Hgb 12.0 Hct 36.6 Plt Count 235 PT 17.4 H INR 1.57 Sodium 137 Potassium 3.3 L BUN 69 H Creatinine 2.46 H Glucose 101 Magnesium 1.9 Total Bilirubin 1.0 AST 43 H ALT 24 Alkaline Phosphatase 107 Microbiology Data (last 24 hrs): 03/03/24 14:39 Nasopharnyx Influenza Type A Antigen Screen - Final 03/03/24 14:39 Nasopharnyx Influenza Type B Antigen Screen - Final <Adeola Hurt - Last Filed: 03/03/24 21:31> Assessment and Plan - Plan Decompensated CHF Metolazone 5mg po daily Bumex 1 mg p.o. daily I&O Daily weight Manager Drug, trend, and replete electrolytes Generalized weakness with recent slow ground-level falls Decrease gabapentin dose (previously 200mg po BID) PT consult SNF eval A.fib with NSTEMI Continue medications for rate control Anticoagulation Serial troponins and EKGs Cardiology consultation Repeat chest x-ray GI and DVT prophylaxis - Advance Directives Does patient have a Living Will: No Does patient have a Durable POA for Healthcare: No <Gudelia Carey - Last Filed: 03/03/24 18:04> - Plan Pt seen and examined. I agree with the note by the [employer]. Pt is a 78 yo female with past medical history of A. fib, Breast cancer, Htn, seizure and TIA who presents with generalized weakness because her legs kept giving out on her. The symptoms progressively worsened over the past 2 days and pt came to the ER for evaluation. On admission, lab studies show wbc 5.8, Hgb 12, K 3.3, Cr 2.46, Troponin 59.9 and BNP 76151. At bedside, pt is in NAD. A/P: [place]F exacerbation: [place] [address]. Will continue bumex, metolazone, strict I/O and daily weight. Generalized weakness: Likely due to CHF exacerbation. Will reduce dose of gabapentin and Consult PT. A.fib: Will continue telemetry, BB and Eliquis Htn: Continue bb Seizure: continue home med. DVT ppx: SCD Code: full <Adeola Hurt - Last Filed: 03/03/24 21:31>
[2024-03-03 20:50] VITALS: BMI 27.0
[2024-03-03] MEDS: APIXABAN 2.5 MG TABLET PO SCH (20:55)
[2024-03-03] MEDS: METOPROLOL TAR 50 MG TAB PO SCH (20:55)
[2024-03-03] MEDS: AMIODARONE HCL 200 MG TAB PO SCH (20:55)
[2024-03-03] MEDS: EZETIMIBE 10 MG TAB PO SCH (20:55)
[2024-03-03] MEDS: GABAPENTIN 100 MG CAP PO SCH (20:55)
[2024-03-04 01:43] LABS: Specific Gravity 1.007 (1.005-1.030); Urine Bilirubin NEGATIVE (Negative); Urine Blood Negative (Negative); Urine Clarity Clear (Clear); Urine Color Colorless (Yellow); Urine Glucose NEGATIVE (Negative); Urine Ketones NEGATIVE (Negative); Urine Microscopic Reflex YN NO UMIC; Urine Nitrite NEGATIVE (Negative); Urine Protein NEGATIVE (Negative); Urine Urobilinogen Normal (Normal)
[2024-03-04] MEDS: POTASSIUM CL SA 10 MEQ TAB PO ONE (01:46)
[2024-03-04 07:56] LABS: Absolute Basophils 0.1 K/uL (0-0.5); Absolute Eosinophils 0.1 K/uL (0-0.5); Absolute Lymphocytes (CBC) 1.1 K/uL (0.7-4.9); Absolute Monocytes 0.6 K/uL (0.1-1.3); Absolute Neutrophil 4.6 K/uL (1.8-8.0); Basophils % 0.8 % (0-1.3); Eosinophils % 0.8 % (0-4.4); Hematocrit 38.7 % (36.0-45.0); Hemoglobin 12.8 g/dL (12.0-15.0); Lymphocytes % 17.3 % (15.3-44.8); MCH 29.2 pg (27.0-35.0); MCV 88.4 fL (80-100); MPV 7.5 fL (7.6-11.3); Neutrophils % 71.1 % (41.7-73.7); Nucleated Red Blood Cells % 0.1 % (0-0); Platelets 288 thou/uL (152-406); RBC Red Blood Cell Count 4.37 M/uL (3.86-4.86); Red Cell Distribution Width 16.4 % (12.1-15.2)
[2024-03-04 08:19] LABS: Albumin 2.7 g/dL (3.4-5.0); Albumin/Globulin Ratio 0.9 (1.1-1.8); Anion Gap 10.2 mEq/L (5.0-15.0); Bilirubin Total 0.9 mg/dL (0.2-1.0); Globulin 3.1 g/dL (2.3-3.5); Magnesium 1.9 mg/dL (1.6-2.4); Phosphorus 3.8 mg/dL (2.5-4.9); Potassium 3.2 mEq/L (3.5-5.1); Protein, Total 5.8 g/dL (6.4-8.2); Troponin High Sensitivity 53.3 pg/mL (<58.9)
[2024-03-04] MEDS: METOLAZONE 5 MG TABLET PO SCH (09:00)
[2024-03-04] MEDS: BUMETANIDE 1 MG TABLET PO SCH (09:00)
--- NOTE | 2024-03-04 10:32 | P.PN ---
Subjective Date of Service: 03/04/24 Chief Complaint: Decompensated CHF, weakness Pt is resting comfortably in bed. Her BP is low thia am. Will hold BP meds and bumex. Pt denies any dizziness or chest pain. fluid balance is -300 cc. No other complaints. Review of Systems General: Unremarkable Eyes: Unremarkable ENT: Unremarkable Respiratory: Unremarkable Cardiovascular: Unremarkable Gastrointestinal: Unremarkable Genitourinary: Unremarkable Musculoskeletal: Unremarkable Integumentary: Unremarkable Neurological: Unremarkable Lymphatics: Unremarkable Physical Examination - Vital Signs Temperature: 97.3 F Blood Pressure: 97/62 Pulse: 76 Respirations: 18 Pulse Ox (%): 90 - Physical Exam General: Alert, In no apparent distress, Oriented x3 HEENT: Atraumatic, Normocephalic, PERRLA Neck: Supple, 2+ carotid pulse no bruit, JVD not distended Respiratory: Clear to auscultation bilaterally, Normal air movement Cardiovascular: No edema, Normal pulses, Regular rate/rhythm Capillary refill: <2 Seconds Gastrointestinal: Normal bowel sounds, Soft and benign, Non-distended Musculoskeletal: No clubbing, No swelling, No contractures Integumentary: No rashes, No breakdown, No significant lesion Neurological: Normal gait, Normal speech, Normal strength at 5/5 x4 extr Lymphatics: No axilla or inguinal lymphadenopathy - Studies Laboratory Data (last 24 hrs) 03/03/24 03/03/24 03/03/24 14:49 14:49 14:49 WBC 5.80 Hgb 12.0 Hct 36.6 Plt Count 235 PT 17.4 H INR 1.57 Sodium 137 Potassium 3.3 L BUN 69 H Creatinine 2.46 H Glucose 101 Magnesium 1.9 Total Bilirubin 1.0 AST 43 H ALT 24 Alkaline Phosphatase 107 Microbiology Data (last 24 hrs): 03/03/24 14:39 Nasopharnyx Influenza Type A Antigen Screen - Final 03/03/24 14:39 Nasopharnyx Influenza Type B Antigen Screen - Final Assessment And Plan - Plan [place] [address]. Will continue bumex/ metolazone (as BP permits), strict I/O and daily weight. Generalized weakness: Likely due to CHF exacerbation. Will reduce dose of gabapentin and Consult PT. A.fib: Will continue telemetry, BB and Eliquis Htn: Hold BP med for now. Seizure: continue home med. DVT ppx: SCD Code: full Dispo: pending hospital course.
--- NOTE | 2024-03-04 12:46 | P.CNS ---
Date of Consult: 03/04/24 Chief Complaint: Decompensated CHF, weakness History of Present Illness: Patient with PMH of diastolic heart failure, atrial fibrillation, CKD presented with generalized weakness and bilateral lower extremities swelling, patient denies palpitations, no chest pain , no syncope. Allergies aspirin [From Aggrenox] Allergy (Verified 11/15/21 00:36) Hives/Rash dipyridamole [From Aggrenox] Allergy (Verified 11/15/21 00:36) Hives/Rash meperidine [From Demerol] Allergy (Verified 11/15/21 00:36) Hives/Rash morphine Allergy (Verified 11/15/21 00:36) Hives/Rash Home medications list reviewed: Yes Home Medications: Ezetimibe 10 mg PO DAILY 30 Days #30 tablet 11/17/21 Amiodarone HCl [Cordarone*] 200 mg PO DAILY 01/26/24 Apixaban [Eliquis *] 2.5 mg PO BID 01/26/24 Gabapentin [Neurontin*] 100 mg PO BEDTIME 01/26/24 Metoprolol Tartrate [Lopressor*] 50 mg PO BID 01/26/24 cloNIDine [Clonidine] 1 each TD EVERY 7TH DAY 01/26/24 Tramadol HCl [Ultram] 50 mg PO DAILYPRN PRN 01/28/24 Amiodarone HCl [Cordarone*] 200 mg PO BID tab 02/11/24 Bumetanide [Bumex] 1 mg PO DAILY 30 Days #30 tab 02/11/24 Hydrocodone 5/APAP 325 [[place] 5/325*] 1 tab PO Q4H PRN tab 02/11/24 - Past Medical/Surgical History Diabetic: No -: TIA/CVA -: Afib -: HTN -: Sz-hypoglycemia -: Fibromyalgia/chronic pain -: History of breast cancer treated in 2002 -: Madiha/Appy/hysterectomy -: hernia repair -: mastectomy with implants and removal Psychosocial/ Personal History: Pt lives at home, alone. - Family History Father Medical History: Heart disease, Stroke Mother Medical History: Heart disease, Stroke - Social History Alcohol use: No CD- Drugs: No Caffeine use: Yes Place of Residence: Home Review of Systems 10-point ROS is otherwise unremarkable Physical Examination Temp Pulse Resp BP Pulse Ox 97.2 F 76 18 101/53 L 93 03/04/24 12:00 03/04/24 12:00 03/04/24 12:00 03/04/24 12:00 03/04/24 12:00 General: Alert, In no apparent distress HEENT: Atraumatic, PERRLA, Mucous membr. moist/pink, EOMI, Sclerae nonicteric Neck: Supple, 2+ carotid pulse no bruit, No LAD, Without JVD or thyroid abnormality Respiratory: Clear to auscultation bilaterally, Normal air movement Cardiovascular: Edema, Irregular heart rate/rhythm Gastrointestinal: Normal bowel sounds, No tenderness Musculoskeletal: No tenderness Integumentary: No rashes Neurological: Normal gait, Normal speech, Normal tone, Normal affect Lymphatics: No axilla or inguinal lymphadenopathy Laboratory Data (last 24 hrs) 03/03/24 03/03/24 03/03/24 14:49 14:49 14:49 WBC 5.80 Hgb 12.0 Hct 36.6 Plt Count 235 PT 17.4 H INR 1.57 Sodium 137 Potassium 3.3 L BUN 69 H Creatinine 2.46 H Glucose 101 Magnesium 1.9 Total Bilirubin 1.0 AST 43 H ALT 24 Alkaline Phosphatase 107 - Problems (1) Acute on chronic diastolic heart failure Current Visit: No Status: Acute Plan: Continue Bumex 1 mg daily Continue Metolazone Continue to monitor input and output Monitor and correct electrolytes. (2) Atrial fibrillation Current Visit: No Status: Acute Plan: Patient scheduled for [facility] with EP on Sunday lower lopressor to 25 mg po BID continue Amiodarone 200 mg po BID continue Eliquis 2.5 mg po BID
[2024-03-04] MEDS ORDERED: HYDROCODONE/APAP 5/325 MG TAB PO PRN (13:05)
[2024-03-04] MEDS: HYDROCODONE/APAP 5/325 MG TAB PO PRN (14:06)
--- NOTE | 2024-03-04 16:55 | EKG ---
Test Date: 2024-03-03 Test Time: 15:28:13 Records Administrator: TUTU MEASUREMENT RESULTS: Intervals: Rate: 76 MN: QRSD: 158 QT: 524 QTc: 589 [place]: P: MN: QRS: 134 T: -8 INTERPRETIVE STATEMENTS: Suspect arm lead reversal, interpretation assumes no reversal Atrial flutter with variable AV block Right bundle branch block Left posterior fascicular block Bifascicular block Left ventricular hypertrophy with repolarization abnormality Abnormal ECG Compared to ECG 03/03/2024 15:26:13 Left ventricular hypertrophy now present Early repolarization now present Atrial fibrillation no longer present T-wave abnormality no longer present Possible ischemia no longer present Bifascicular block still present Electronically Signed On 03-04-24 16:52:55 CDT by Jacinto Patton
--- NOTE | 2024-03-04 16:55 | EKG ---
Test Date: 2024-03-03 Test Time: 15:26:13 Dental Scheduling Coordinator: TUTU MEASUREMENT RESULTS: Intervals: Rate: 83 FL: QRSD: 156 QT: 532 QTc: 625 [place]: P: FL: QRS: 140 T: -3 INTERPRETIVE STATEMENTS: Atrial fibrillation Right bundle branch block Left posterior fascicular block Bifascicular block T wave abnormality, consider inferolateral ischemia or digitalis effect Abnormal ECG Compared to ECG 02/03/2024 15:22:58 No significant changes Electronically Signed On 03-04-24 16:52:57 CDT by Jacinto Patton
[2024-03-05] MEDS ORDERED: SIMETHICONE 125 MG TAB PO PRN (08:07)
[2024-03-05 08:19] LABS: Absolute Basophils 0.1 K/uL (0-0.5); Absolute Eosinophils 0.1 K/uL (0-0.5); Absolute Lymphocytes (CBC) 1.1 K/uL (0.7-4.9); Absolute Monocytes 0.6 K/uL (0.1-1.3); Absolute Neutrophil 6.7 K/uL (1.8-8.0); Basophils % 0.9 % (0-1.3); Eosinophils % 0.9 % (0-4.4); Hematocrit 44.7 % (36.0-45.0); Hemoglobin 14.4 g/dL (12.0-15.0); Lymphocytes % 13.2 % (15.3-44.8); MCH 29.1 pg (27.0-35.0); MCHC 32.2 g/dL (32.0-36.0); MCV 90.3 fL (80-100); MPV 7.9 fL (7.6-11.3); Monocytes % 7.4 % (3.3-12.3); Neutrophils % 77.6 % (41.7-73.7); Nucleated Red Blood Cells % 0.1 % (0-0); Platelets 291 thou/uL (152-406); RBC Red Blood Cell Count 4.94 M/uL (3.86-4.86); Red Cell Distribution Width 17.1 % (12.1-15.2)
[2024-03-05 08:39] LABS: Albumin 2.8 g/dL (3.4-5.0); Albumin/Globulin Ratio 0.8 (1.1-1.8); Anion Gap 6.4 mEq/L (5.0-15.0); Bilirubin Total 0.9 mg/dL (0.2-1.0); Globulin 3.7 g/dL (2.3-3.5); Phosphorus 3.1 mg/dL (2.5-4.9); Potassium 5.4 mEq/L (3.5-5.1); Protein, Total 6.5 g/dL (6.4-8.2)
[2024-03-05] MEDS: SIMETHICONE 125 MG TAB PO SCH (09:53)
--- NOTE | 2024-03-05 13:14 | P.PN ---
Subjective Date of Service: 03/05/24 Chief Complaint: Decompensated CHF, weakness Subjective: No new changes, No C/O voiced, Tolerating diet, Ambulating, Improving Review of Systems 10-point ROS is otherwise unremarkable Physical Examination - Vital Signs Temperature: 97.5 F Blood Pressure: 142/70 Pulse: 86 Respirations: 16 Pulse Ox (%): 91 - Physical Exam General: Alert, In no apparent distress HEENT: Atraumatic, PERRLA, EOMI Neck: Supple, JVD not distended Respiratory: Clear to auscultation bilaterally, Normal air movement Cardiovascular: Edema, Irregular heart rate/rhythm Gastrointestinal: Normal bowel sounds, No tenderness Musculoskeletal: No tenderness Integumentary: No rashes Neurological: Normal speech, Normal tone, Normal affect Lymphatics: No axilla or inguinal lymphadenopathy - Studies Medications List Reviewed: Yes Assessment And Plan - Current Problems (Diagnosis) (1) Acute on chronic diastolic heart failure Current Visit: No Status: Acute Plan: Continue Bumex 1 mg daily Continue Metolazone Continue to monitor input and output Monitor and correct electrolytes. (2) Atrial fibrillation Current Visit: No Status: Acute Plan: Patient scheduled for [facility] with EP on Sunday as outpatient lopressor to 25 mg po BID continue Amiodarone 200 mg po BID continue Eliquis 2.5 mg po BID
--- NOTE | 2024-03-05 13:39 | P.PN ---
Subjective Date of Service: 03/05/24 Chief Complaint: Decompensated CHF, weakness Pt is resting comfortably in bed. Her BP is better. Will resume bumex and metolazone. Pt denies any dizziness or chest pain. Will do COLLINS cardioversion on sunday at [place]. Pt complains of feeling weak. Will work with PT today and tomorrow so that she can be discharged for the outpt COLLINS cardioversion. No other complaints. Review of Systems General: Weakness Eyes: Unremarkable ENT: Unremarkable Respiratory: Unremarkable Cardiovascular: Unremarkable Gastrointestinal: Unremarkable Genitourinary: Unremarkable Musculoskeletal: Unremarkable Integumentary: Unremarkable Neurological: Unremarkable Lymphatics: Unremarkable Physical Examination - Vital Signs Temperature: 97.5 F Blood Pressure: 142/70 Pulse: 86 Respirations: 16 Pulse Ox (%): 91 - Physical Exam General: Alert, In no apparent distress, Oriented x3 HEENT: Atraumatic, Normocephalic, PERRLA Neck: Supple, 2+ carotid pulse no bruit, JVD not distended Respiratory: Clear to auscultation bilaterally, Normal air movement Cardiovascular: No edema, Normal pulses, Regular rate/rhythm, Normal S1 S2 Capillary refill: <2 Seconds Gastrointestinal: Normal bowel sounds, Soft and benign, Non-distended Musculoskeletal: No clubbing, No swelling, No contractures Integumentary: No rashes, No breakdown, No significant lesion, No tenderness/swelling Neurological: Normal gait, Normal speech, Normal strength at 5/5 x4 extr Lymphatics: No axilla or inguinal lymphadenopathy - Studies Medications List Reviewed: Yes Assessment And Plan - Plan [place] [address]. Will continue bumex/ metolazone (as BP permits), strict I/O and daily weight. Generalized weakness: Likely due to CHF exacerbation. Will reduce dose of gabapentin and Consult PT. A.fib: Will continue telemetry, BB and Eliquis. Will do COLL[facility] cardioversion on sunday at [place]. Generalized weakness: Will continue PT Htn: Hold BP med for now. Seizure: continue home med. DVT ppx: SCD Code: full Dispo: pending hospital course. Will dc pt tomorrow for COLL[facility] Cardiolversion at [place].
[2024-03-05] MEDS: METOPROLOL TAR 25 MG TAB PO SCH (17:58)
[2024-03-06 07:54] LABS: Absolute Lymphocytes (CBC) 1.1 K/uL (0.7-4.9); Absolute Monocytes 0.8 K/uL (0.1-1.3); Absolute Neutrophil 6.2 K/uL (1.8-8.0); Basophils % 0.6 % (0-1.3); Eosinophils % 0.5 % (0-4.4); Hematocrit 42.2 % (36.0-45.0); Hemoglobin 13.8 g/dL (12.0-15.0); Lymphocytes % 13.1 % (15.3-44.8); MCHC 32.6 g/dL (32.0-36.0); MPV 7.4 fL (7.6-11.3); Monocytes % 9.8 % (3.3-12.3); Nucleated Red Blood Cells % 0.1 % (0-0); Platelets 323 thou/uL (152-406); RBC Red Blood Cell Count 4.74 M/uL (3.86-4.86)
[2024-03-06 08:14] LABS: Albumin 2.6 g/dL (3.4-5.0); Albumin/Globulin Ratio 0.8 (1.1-1.8); Anion Gap 5.1 mEq/L (5.0-15.0); Bilirubin Total 1.2 mg/dL (0.2-1.0); Globulin 3.3 g/dL (2.3-3.5); Magnesium 1.9 mg/dL (1.6-2.4); Phosphorus 3.7 mg/dL (2.5-4.9); Potassium 3.1 mEq/L (3.5-5.1); Protein, Total 5.9 g/dL (6.4-8.2)
--- NOTE | 2024-03-06 11:26 | P.PN ---
Subjective Date of Service: 03/06/24 Chief Complaint: Decompensated CHF, weakness Subjective: No new changes, No C/O voiced, Tolerating diet, Ambulating, Improving Review of Systems 10-point ROS is otherwise unremarkable Physical Examination - Vital Signs Temperature: 97.7 F Blood Pressure: 117/71 Pulse: 83 Respirations: 18 Pulse Ox (%): 90 - Physical Exam General: Alert, In no apparent distress HEENT: Atraumatic, PERRLA, EOMI Neck: Supple, JVD not distended Respiratory: Clear to auscultation bilaterally, Normal air movement Cardiovascular: Edema, Irregular heart rate/rhythm Gastrointestinal: Normal bowel sounds, No tenderness Musculoskeletal: No tenderness Integumentary: No rashes Neurological: Normal speech, Normal tone, Normal affect Lymphatics: No axilla or inguinal lymphadenopathy - Studies Medications List Reviewed: Yes Assessment And Plan - Current Problems (Diagnosis) (1) Acute on chronic diastolic heart failure Current Visit: No Status: Acute Plan: Continue Bumex 1 mg daily Continue Metolazone 5 mg daily Patient swelling and creatinine improving follow up with me next week for repeated BMP Continue to monitor input and output Monitor and correct electrolytes. (2) Atrial fibrillation Current Visit: No Status: Acute Plan: Patient scheduled for COLLINS DCCV with EP on Sunday as outpatient lopressor 25 mg po BID continue Amiodarone 200 mg po BID continue Eliquis 2.5 mg po BID
--- NOTE | 2024-03-06 12:35 | P.DS ---
Admission Date: 03/03/24 Discharge Date: 03/06/24 Disposition: ROUTINE DISCHARGE Discharge Condition: GOOD Reason for Admission: Decompensated CHF, weakness Brief History of Present Illness: Ms. Mcfarland is a 78-year-old female with a past medical history of atrial fibrillation with failed attempt at cardioversion currently on Eliquis, breast cancer, hypertension, multiple recent admissions, and generalized weakness. She has had progressive weakness over the last 48 hours, she denies any specific trauma areas, just states both legs are numb from time to time. Vital signs in the emergency room are blood pressure 107/82, pulse 74, respirations 16, temp 97, SpO2 98% on room air. On patient's previous admission on 02/03/2024, she was noted to have a mildly elevated troponin likely secondary to CHF and A-fib. She was seen by Dr. Sullivan and Dr. Hall. We will continue their recommendations on this admission, get PT evaluation, and discuss SNF placement with Ms. Mcfarland. Hospital Course: Pt is a 78yo male with past medical history of atrial fibrillation (with failed attempt at cardioversion currently on Eliquis), CHF, breast cancer, hypertension, multiple recent admissions, and generalized weakness who presented with progressive weakness over the last 48 hours. On admission, [place] [address]. We continued bumex/ metolazone (as BP permitted), strict I/O and daily weight. We reduced dose of gabapentin and consult PT for generalized weakness. The behavioral health case manager initiated the process inpatient rehab placement. She felt better and we discharged her in order to be able to follow up with the Cardiac Cath Lab Radiology Technologist at [place] for COLLINS cardioversion. We continued home meds for other chronic medical problems. Pt was in NAD prior to discharge. Vital Signs/Physical Exam: Temp Pulse Resp BP Pulse Ox 97.7 F 83 18 117/71 90 L 03/06/24 11:26 03/06/24 11:26 03/06/24 11:26 03/06/24 11:26 03/06/24 11:26 Laboratory Data at Discharge: WBC 8.20 thou/uL (4.3-10.9) 03/06/24 07:30 Hgb 13.8 g/dL (12.0-15.0) 03/06/24 07:30 Hct 42.2 % (36.0-45.0) 03/06/24 07:30 Plt Count 323 thou/uL (152-406) 03/06/24 07:30 PT 17.4 SECONDS (9.4-12.5) H 03/03/24 14:49 INR 1.57 03/03/24 14:49 Sodium 137 mEq/L (136-145) 03/06/24 07:30 Potassium 3.1 mEq/L (3.5-5.1) L D 03/06/24 07:30 BUN 51 mg/dL (7-18) H 03/06/24 07:30 Creatinine 1.65 mg/dL (0.55-1.02) H 03/06/24 07:30 Glucose 111 mg/dL (74-106) H 03/06/24 07:30 Phosphorus 3.7 mg/dL (2.5-4.9) 03/06/24 07:30 Magnesium 1.9 mg/dL (1.6-2.4) 03/06/24 07:30 Total Bilirubin 1.2 mg/dL (0.2-1.0) H 03/06/24 07:30 AST 31 U/L (15-37) 03/06/24 07:30 ALT 18 U/L (13-56) 03/06/24 07:30 Alkaline Phosphatase 82 U/L (45-117) D 03/06/24 07:30 Triglycerides 75 mg/dL (<150) 03/04/24 07:21 Cholesterol 122 mg/dL (<200) 03/04/24 07:21 HDL Cholesterol 60 mg/dL (40-60) 03/04/24 07:21 Cholesterol/HDL Ratio 2.03 03/04/24 07:21 Home Medications: Ezetimibe 10 mg PO DAILY 30 Days #30 tablet 11/17/21 Apixaban [Eliquis *] 2.5 mg PO BID 01/26/24 Gabapentin [Neurontin*] 100 mg PO BEDTIME 01/26/24 Metoprolol Tartrate [Lopressor*] 50 mg PO BID 01/26/24 cloNIDine [Clonidine] 1 each TD EVERY 7TH DAY 01/26/24 Tramadol HCl [Ultram] 50 mg PO DAILYPRN PRN 01/28/24 Amiodarone HCl [Cordarone*] 200 mg PO BID tab 02/11/24 Bumetanide [Bumex*] 1 mg PO DAILY 30 Days #30 tab 02/11/24 Hydrocodone 5/APAP 325 [[place] 5/325*] 1 tab PO Q4H PRN tab 02/11/24 Physician Discharge Instructions: Continue ad gato activity as tolerated. Take home meds as prescribed. Follow up with Cardiac Cath Lab Radiology Technologist on tomorrow for COLLINS Cardioversion. Follow up with PCP within 1 -2 weeks. Also go to inpatient rehab. Diet: AHA Activity: Ad gato Followup: Jess Barr MD [Primary Care Provider] -
[2024-03-06 12:37] VITALS: O2SAT 97
[2024-03-06 13:12] VITALS: BP 116/64; TEMP 96.9
[2024-03-07] MEDS ORDERED: CLONIDINE 0.1 MG/PATCH TD SCH (09:00)
== END 2024-03-06 16:35 | disposition home health service (06) | DRG 280 ==
LOC: ER 13:48 → ERHOLD 16:51 → 4TH 20:13
PROVIDERS: ADMIT Hospitalist; ATTEND Hospitalist
DX: I11.0 Hypertensive heart disease with heart failure (principal); I50.33 Acute on chronic diastolic (congestive) heart failure; I21.4 Non-ST elevation (NSTEMI) myocardial infarction; I48.91 Unspecified atrial fibrillation; Z60.2 Problems related to living alone; Z88.5 Allergy status to narcotic agent; Z88.6 Allergy status to analgesic agent; Z88.7 Allergy status to serum and vaccine; Z85.3 Personal history of malignant neoplasm of breast; Z88.8 Allergy status to other drugs, medicaments and biological substances; Z11.52 Encounter for screening for COVID-19; Z79.01 Long term (current) use of anticoagulants; Z90.10 Acquired absence of unspecified breast and nipple; Z90.49 Acquired absence of other specified parts of digestive tract; Z86.73 Personal history of transient ischemic attack (TIA), and cerebral infarction without residual deficits; Z79.890 Hormone replacement therapy; Z79.899 Other long term (current) drug therapy; Z90.710 Acquired absence of both cervix and uterus
CPT/HCPCS: 36415; 70450; 71045; 80048; 80053; 80061; 80076; 81001; 81003; 83605; 83735; 83880; 84100; 84484; 85025; 85610; 87804; 87811; 93005; 96374; 97116; 97163; 97530; 99285; J1940